=== PATIENT | female | born 1955 | race Two or more races ===

== ENCOUNTER 2017-02-19 20:50 | Inpatient (IN) | payer MEDICARE, OTHER ==
[~2017-02-19] VITALS: Ht 157.5 cm; Wt 58.1 kg
--- NOTE | 2017-02-19 23:00 | NUR ---
ADMISSION NOTES: ADMITTED A 61 Y/O FEMALE FROM [facility]. PT ON 5150 HOLD FOR GD. PER HOLD, PATIENT PRESENTED WITH PARANOID IDEATION (FEARS STAFF AND BELIEVES FOOD HAS BEEN POISONED). SOMATIC DELUSIONS, AND LIMITED INSIGHT DESPITE ATTEMPTS AT REALITY TESTING. DOES NOT BELIEVE PATIENT WOULD BE SAFE AT HOME AND BELIEVES PSYCHIATRIC ADMISSION IS WARRANTED, THE PATIENT IS DEMONSTRATING THAT SHE IS UNABLE TO CARE FOR HERSELF DESPITE HAVING FOOD, CLOTHING, AND MCC AND HAS DECLINED PHYSICALLY IN RECENT MONTHS. PATIENT ADMITTING DX. PSYCHOSIS AND MEDICAL DX. OF RECURRENT UTI, NEUROGENIC BLADDER, THROMBOCYTOPENIA, LEUKOPENIA, S/P CHOLECYSTECTOMY. UPON FACE TO FACE EVALUATION, PATIENT IS A&OX2, ANXIOUS, CRYING, SCREAMING, UNCOOPERATIVE WITH STAFF. V/S WNL. PATIENT HAS NO SOB, RESPIRATION EVEN AND UNLABORED, NO ACUTE DISTRESS NOTED, DENIES PAIN AND DISCOMFORT AT THIS TIME. AMBULATORY WITH UNSTEADY GAIT. PATIENT IS UNDER THE CARE OF DR. LYNCH FOR PSYCH AND DR. VENTURA FOR MEDICAL. NOTIFIED DR. LYNCH WITH ORDERS GIVEN NOTED AND CARRIED OUT. REFUSED SKIN ASSESSMENT. BELONGINGS INSPECTED AND PLACED TO SAFE LOCKED CABINET. ALL NEEDS ATTENDED AND MET. WILL CONTINUE TO MONITOR [id number] FOR SAFETY AND BEHAVIOR. Addendum: 02/20/17 at 0657 by MYCHAL GARCÍA RN PT REFUSED MRSA. WILL ENDORSE TO NEXT SHIFT NURSE FOR ADA.
[2017-02-19] MEDS ORDERED: ACETAMINOPHEN 325 MG TABLET PO PRN (23:30)
[2017-02-19] MEDS ORDERED: MAGNESIUM HYDROXIDE 30 ML UDC PO PRN (23:30)
[2017-02-19] MEDS ORDERED: MAG HYDROX/AL HYDROX/SIMETH 30 ML UDC PO PRN (23:30)
[2017-02-19] MEDS ORDERED: LORAZEPAM INJ 2 MG/ML VIAL ONE (23:41)
--- NOTE | 2017-02-19 23:45 | NUR ---
PT IS CRYING, SCREAMING, UNCOOPERATIVE WITH STAFF, PT WANTS TO LEAVE. AT BEDSIDE. OFFERED ATIVAN PO BUT PT REFUSED. REQUESTING FOR ATIVAN IM LIKEWISE PT IS OK WITH THE ATIVAN IM. CALLED DR. LYNCH. INFORMED PT'S CONDITION UPON ADMISSION. ORDERED ATIVAN 1MG IM. NOTED AND CARRIED OUT. WILL CONTINUE TO MONITOR FOR SAFETY AND BEHAVIOR.
[2017-02-20] MEDS ORDERED: LORAZEPAM INJ 2 MG/ML VIAL IM ONE
[2017-02-20] MEDS ORDERED: ZOLPIDEM TARTRATE 5 MG TABLET ONE (00:20)
[2017-02-20] MEDS: ZOLPIDEM TARTRATE 5 MG TABLET PO PRN ×2 (00:21→22:02)
[2017-02-20] MEDS ORDERED: HEPA SUBCUT (01:22)
[2017-02-20] MEDS ORDERED: SENN8.6T19 PO (01:22)
[2017-02-20] MEDS ORDERED: OLAN5TAB3 PO (01:22)
[2017-02-20] MEDS ORDERED: SENN25TA8 PO (01:22)
[2017-02-20] MEDS ORDERED: BETH50TA PO (01:22)
[2017-02-20] MEDS ORDERED: DOCU-170 PO (01:22)
[2017-02-20] MEDS ORDERED: THIA100V2 IV (01:29)
[2017-02-20 02:11] VITALS: BP 103/64
[2017-02-20 06:26] LABS: BASOPHILS # (AUTO) 0.1 /CMM (0.0-0.2); BASOPHILS % (AUTO) 1.2 % (0.0-2.0); EOSINOPHILS # (AUTO) 0.1 /CMM (0.0-0.7); EOSINOPHILS % (AUTO) 1.8 % (0.0-6.0); HEMATOCRIT 41 % (33-45); HEMOGLOBIN 13.6 g/dL (11.5-14.8); LYMPHOCYTES # (AUTO) 2.1 /CMM (0.8-4.8); MEAN CORPUSCULAR HEMOGLOBIN 31 PG (26.0-33.0); MEAN CORPUSCULAR HGB CONC 33 g/dl (31.0-36.0); MEAN CORPUSCULAR VOLUME 94 fL (82-100); MONOCYTES # (AUTO) 0.4 /CMM (0.1-1.30); MONOCYTES % (AUTO) 8.2 % (2.0-12.0); NEUTROPHILS # (AUTO) 2.1 /CMM (1.8-8.9); NEUTROPHILS % (AUTO) 43.8 % (43.0-81.0); RDW COEFFICIENT OF VARIATION 15.7 (11.5-15.0); RED BLOOD CELL COUNT(AUTO) 4.32 MIL/uL (4.0-5.2); WHITE BLOOD COUNT (AUTO) 4.7 K/uL (4.3-11.0)
[2017-02-20 06:48] LABS: CHOLESTEROL 219 mg/dL (<200); HDL CHOLESTEROL 61 mg/dL (40-60); LDL 134 mg/dL (0-99); TRIGLYCERIDES 90 mg/dL (30-150)
[2017-02-20 07:42] LABS: BAND % (MANUAL) 1 % (0.0-5.0); EOSINOPHILS % (MANUAL) 1 % (0-4); LYMPHOCYTES % (MANUAL) 54 % (16-48); MONOCYTES % (MANUAL) 8 % (0-11.0); NEUTROPHILS % (MANUAL) 36 (42-76)
[2017-02-20 08:00] VITALS: BP 120/62
[2017-02-20 08:42] LABS: PLATELET COUNT (AUTO) 76 /CMM (150-450)
[2017-02-20 08:46] LABS: ALBUMIN 3.4 g/dL (3.4-5.0); BILIRUBIN,TOTAL 1.3 mg/dL (0.2-1.0); CREATININE 0.6 mg/dL (0.6-1.3); MAGNESIUM 1.6 mg/dL (1.8-2.4)
[2017-02-20] MEDS ORDERED: BETHANECHOL CHLORIDE 50 MG TABLET PO SCH (09:00)
[2017-02-20] MEDS: DOCUSATE SODIUM 100 MG CAPSULE PO SCH ×3 (09:00→17:00)
[2017-02-20] MEDS: BETHANECHOL CHLORIDE (25 MG) 25 MG TABLET PO SCH ×4 (09:00→17:00)
[2017-02-20 10:02] LABS: THYROID STIMULATING HORMONE 6.859 uIU/mL (0.358-3.74)
--- NOTE | 2017-02-20 12:39 | NUR ---
Pt. refused for MRSA swab and refused for skin assessment. Explained on the importance and pt. still refusing.
[2017-02-20 15:56] VITALS: BP 124/78
--- NOTE | 2017-02-20 16:40 | NUR ---
Initial discharge plan: Patient resides at home with her at [address] [place] [address]; [phone]. SW spoke with her (Williams Prater- [phone]) and he stated that she will be able to return home and that the psychiatrist had called him to discuss discharge planning. He stated he recommended home with outpatient treatment. SW will follow up. SW will form a safe and proper discharge.
[2017-02-20] MEDS: OLANZAPINE 5 MG/TAB.RAPDIS PO SCH (17:00)
--- NOTE | 2017-02-20 17:10 | NUR ---
Pt. refused to take the due meds, explained on the importance and the risk of not taking and pt. still refusing. Pt. is suspicious and paranoid.
[2017-02-20 20:00] VITALS: BP 123/80
[2017-02-20] MEDS ORDERED: OLANZAPINE 5 MG TABLET PO SCH (22:00)
[2017-02-20] MEDS: SENNOSIDES 8.6 MG TABLET PO SCH (22:01)
[2017-02-20] MEDS: MIRTAZAPINE 15 MG TABLET PO SCH (22:01)
[2017-02-21 08:00] VITALS: BP 126/62
[2017-02-21] MEDS: OLANZAPINE 5 MG/TAB.RAPDIS PO SCH ×2 (09:03→16:52)
[2017-02-21] MEDS: DOCUSATE SODIUM 100 MG CAPSULE PO SCH ×2 (09:03→16:52)
[2017-02-21] MEDS: BETHANECHOL CHLORIDE (25 MG) 25 MG TABLET PO SCH ×2 (09:04→16:52)
[2017-02-21 16:00] VITALS: BP 119/73
[2017-02-21 20:00] VITALS: BP 143/86
[2017-02-21] MEDS: MIRTAZAPINE 15 MG TABLET PO SCH (21:47)
[2017-02-21] MEDS: ZOLPIDEM TARTRATE 5 MG TABLET PO PRN (21:47)
[2017-02-21] MEDS: SENNOSIDES 8.6 MG TABLET PO SCH (21:47)
[2017-02-22 07:48] VITALS: BP 134/81
[2017-02-22] MEDS: OLANZAPINE 5 MG/TAB.RAPDIS PO SCH ×3 (08:31→16:38)
[2017-02-22] MEDS: DOCUSATE SODIUM 100 MG CAPSULE PO SCH ×2 (08:31→16:38)
[2017-02-22] MEDS: BETHANECHOL CHLORIDE (25 MG) 25 MG TABLET PO SCH ×2 (08:32→16:39)
--- NOTE | 2017-02-22 11:17 | NUR ---
SALES EXECUTIVE INSURANCE-NOTES DR. BARBOSA SEEN THE PATIENT WITH VERBAL ORDER OF CBC,BMP AND MAGNESIUM LEVEL IN AM. NOTED AND CARRIED OUT.
[2017-02-22 15:45] VITALS: BP 140/79
--- NOTE | 2017-02-22 16:21 | NUR ---
PRESS PULLER-NOTES SEEN BY KEILA MCGILL WITH VERBAL ORDER OF BOOST SUPPLEMENT 4XDAILY .NOTED AND CARRIED OUT.
[2017-02-22] MEDS ORDERED: BOOST PLUS FOOD-VANILLA 237 ML BOX PO SCH (17:00)
[2017-02-22 20:04] VITALS: BP 122/68
[2017-02-22] MEDS: BOOST GLUCOSE CONTROL VANILLA 237 ML BOX PO SCH (21:27)
[2017-02-22] MEDS: MIRTAZAPINE 15 MG TABLET PO SCH (21:27)
[2017-02-22] MEDS: SENNOSIDES 8.6 MG TABLET PO SCH (21:27)
[2017-02-22] MEDS: ZOLPIDEM TARTRATE 5 MG TABLET PO PRN (21:28)
[2017-02-23 07:41] LABS: CALCIUM, SERUM 8.7 mg/dL (8.5-10.1); CREATININE 0.5 mg/dL (0.6-1.3); MAGNESIUM 1.7 mg/dL (1.8-2.4); POTASSIUM 3.3 mmol/L (3.5-5.1)
[2017-02-23 07:43] LABS: BASOPHILS % (AUTO) 0.6 % (0.0-2.0); EOSINOPHILS # (AUTO) 0.1 /CMM (0.0-0.7); EOSINOPHILS % (AUTO) 1.3 % (0.0-6.0); HEMATOCRIT 36 % (33-45); HEMOGLOBIN 12.1 g/dL (11.5-14.8); LYMPHOCYTES % (AUTO) 46.9 % (20.0-44.0); MEAN CORPUSCULAR HEMOGLOBIN 31 PG (26.0-33.0); MEAN CORPUSCULAR HGB CONC 34 g/dl (31.0-36.0); MEAN CORPUSCULAR VOLUME 94 fL (82-100); MONOCYTES # (AUTO) 0.5 /CMM (0.1-1.30); MONOCYTES % (AUTO) 10.5 % (2.0-12.0); NEUTROPHILS # (AUTO) 1.8 /CMM (1.8-8.9); NEUTROPHILS % (AUTO) 40.7 % (43.0-81.0); PLATELET COUNT (AUTO) 89 /CMM (150-450); RDW COEFFICIENT OF VARIATION 15.1 (11.5-15.0); RED BLOOD CELL COUNT(AUTO) 3.84 MIL/uL (4.0-5.2); WHITE BLOOD COUNT (AUTO) 4.4 K/uL (4.3-11.0)
--- NOTE | 2017-02-23 07:54 | NUR ---
RN GPS NOTE PT AWAKE, SITTING IN HER BED, VERBALLY RESPONSIVE, DENIES PAIN, NOT IN DISTRESS, REORIENTED NECESSARY.
[2017-02-23 08:00] VITALS: BP 123/76
[2017-02-23 08:37] LABS: EOSINOPHILS % (MANUAL) 2 % (0-4); LYMPHOCYTES % (MANUAL) 47 % (16-48); MONOCYTES % (MANUAL) 10 % (0-11.0); NEUTROPHILS % (MANUAL) 41 (42-76)
[2017-02-23] MEDS: DOCUSATE SODIUM 100 MG CAPSULE PO SCH ×2 (08:42→17:00)
[2017-02-23] MEDS: OLANZAPINE 5 MG/TAB.RAPDIS PO SCH ×2 (08:42→22:01)
[2017-02-23] MEDS: BETHANECHOL CHLORIDE (25 MG) 25 MG TABLET PO SCH ×2 (08:43→17:00)
[2017-02-23] MEDS: BOOST GLUCOSE CONTROL VANILLA 237 ML BOX PO SCH ×4 (08:43→21:00)
--- NOTE | 2017-02-23 08:55 | NUR ---
RN GPS NOTES PT SEEN AND EXAMINED BY DR. VILLALBA, TOLERATED WELL, ABLE TO FOLLOW INSTRUCTIONS, TOOK ALL HER AM MEDS.
[2017-02-23] MEDS: MAGNESIUM OXIDE 400 MG TABLET PO ONE ×2 (10:00→10:23)
[2017-02-23] MEDS: POTASSIUM CHLORIDE 20 MEQ TAB.PRT.SR PO ONE ×2 (10:00→10:22)
[2017-02-23 19:35] VITALS: BP 127/59
[2017-02-23] MEDS: SENNOSIDES 8.6 MG TABLET PO SCH (22:00)
[2017-02-23] MEDS: MIRTAZAPINE 15 MG TABLET PO SCH (22:01)
[2017-02-23] MEDS: ZOLPIDEM TARTRATE 5 MG TABLET PO PRN (22:01)
[2017-02-24 08:00] VITALS: BP 140/84
[2017-02-24] MEDS: BOOST GLUCOSE CONTROL VANILLA 237 ML BOX PO SCH ×4 (08:16→20:17)
[2017-02-24] MEDS: OLANZAPINE 5 MG/TAB.RAPDIS PO SCH ×2 (09:08→20:09)
[2017-02-24] MEDS: BETHANECHOL CHLORIDE (25 MG) 25 MG TABLET PO SCH ×2 (09:08→17:10)
[2017-02-24] MEDS: DOCUSATE SODIUM 100 MG CAPSULE PO SCH ×2 (09:08→17:10)
--- NOTE | 2017-02-24 11:00 | NUR ---
BEAD FORMING MACHINE SET UP OPERATOR-NOTES DR. VERA SEEN THE PATIENT AND MADE AWARE OF PATIENT POTASSIUM LEVEL. AND NOT EATING WELL . STATED" WILL CONT. MONITORING".
[2017-02-24 16:07] VITALS: BP 118/79
--- NOTE | 2017-02-24 16:28 | NUR ---
MANAGEMENT TECHNICIAN NOTES PER ONE OF THE ENVIRONMENT ARTIST STAFF AT AROUND 1615 PATIENT ROOM MATE PUSH THE PATIENT ON THE FLOOR NEXT TO ROOM 214 DOOR AND FELL ON HER BOTTOM. UPON INVESTIGATION PATIENT SITTING ON THE FLOOR ABLE TO STAND AND AMBULATE WITH TWO STAFF ASSIST WITHOUT COMPLAINED OF ANY DISCOMFORT. NO INJURY NOTED. DR. VERA MADE AWARE OF PATIENT INCIDENT WITH ORDER OF STAT LUMBAR SACRAL X-RAY.NOTED AND CARRIED OUT. OFFERED TYLENOL TO THE PATIENT BUT REFUSED. PATIENT WAS TRANSFER TO RM 220-2. JARETT BOWSER MADE AWARE. DR. LYNCH MADE AWARE OF THE INCIDENT.
--- NOTE | 2017-02-24 18:31 | NUR ---
JAE-NOTES PATIENT AWAKE,ALERT,GUARDED SITTING IN THE CHAIR IN THE DAY ROOM ,CALM,NO ACUTE DISTRESS. ALL NEEDS ATTENDED AND ANTICIPATED. WILL ENDORSE TO INCOMING NURSE FOR CONTINUITY OF CARE. Addendum: 02/24/17 at 1845 by VESNA TRACY LVN IN ADDITION TO MY ABOVE NOTES. PATIENT REFUSED TO EAT. DRINK ONLY 1/2 EACH OF HER BOOST.EXPLAINED RISK AND BENEFITS OF EATING , ENCOURAGE AND ASSIST PATIENT DURING MEAL BUT PATIENT STILL REFUSED.
[2017-02-24 20:36] VITALS: BP 131/77
[2017-02-24] MEDS: SENNOSIDES 8.6 MG TABLET PO SCH (21:43)
[2017-02-24] MEDS ORDERED: MIRTAZAPINE 15 MG TABLET PO SCH (22:00)
[2017-02-25] MEDS: ZOLPIDEM TARTRATE 5 MG TABLET PO PRN (01:49)
--- NOTE | 2017-02-25 01:50 | NUR ---
GPS/RN NOTE:
--- NOTE | 2017-02-25 01:50 | NUR ---
GPS/RN NOTE: PATIENT NOT SLEEPING, WAS SEEN SITTING AT THE EDGE OF THE BED, AMBIEN 5 MG TAB 1 PO GIVEN.
[2017-02-25 07:19] LABS: CALCIUM, SERUM 8.6 mg/dL (8.5-10.1); CREATININE 0.8 mg/dL (0.6-1.3); POTASSIUM 3.4 mmol/L (3.5-5.1)
[2017-02-25 08:00] VITALS: BP 127/68
[2017-02-25] MEDS: OLANZAPINE 5 MG/TAB.RAPDIS PO SCH (08:49)
[2017-02-25] MEDS: DOCUSATE SODIUM 100 MG CAPSULE PO SCH ×2 (08:49→16:44)
[2017-02-25] MEDS: BOOST GLUCOSE CONTROL VANILLA 237 ML BOX PO SCH ×4 (08:53→22:14)
[2017-02-25] MEDS: BETHANECHOL CHLORIDE (25 MG) 25 MG TABLET PO SCH ×2 (09:59→16:44)
[2017-02-25] MEDS ORDERED: POTASSIUM CHLORIDE 20 MEQ TAB.PRT.SR PO SCH (10:00)
[2017-02-25] MEDS: POTASSIUM CHLORIDE 20 MEQ TAB.PRT.SR PO ONE ×2 (11:23→11:44)
--- NOTE | 2017-02-25 11:47 | NUR ---
RN -NOTES SEEN THE PATIENT AND MADE AWARE OF PATIENT POTASSIUM LEVEL. AND PT NOT EATING . NEW ORDER K-DUR 40 MEQ ORDER PLACED AND CARED OUT, PT REFUSED POTASSIUM ENCOURAGE AND EXPLAIN PT CONTINUE TO REFUSED
--- NOTE | 2017-02-25 14:06 | NUR ---
BETO met with the patient who was calm and cooperative. Spoke with her regarding her discharge plan and pt. still wants to return home upon discharge.
[2017-02-25 16:27] VITALS: BP 131/80
[2017-02-25 20:33] VITALS: BP 152/80
[2017-02-25] MEDS ORDERED: OLANZAPINE 5 MG/TAB.RAPDIS PO SCH (22:00)
[2017-02-25] MEDS: SENNOSIDES 8.6 MG TABLET PO SCH (22:14)
--- NOTE | 2017-02-26 01:00 | NUR ---
GPS/HOME HEALTH CARE SOCIAL WORKER; NOTED PT IN BED AWAKE SITTING POSITION CALM AND QUIET. I ASKED IF SHE NEEDS SOMETHING WON'T SAY NOTHING SHE JUST LOOK AT ME. IF OFFERED FOR SLEEPING MED AND SOMETHING TO EAT SHE REFUSED. PT ENCOURAGED TO SLEEP. WILL CONTINUE TO MONITOR. Addendum: 02/26/17 at 0153 by SUJATHA GLASS LVN WRONG WORD NOT IF OFFERED FOR SLEEPING MED AND SOMETHING TO EAT BUT THE RIGHT WORD IS I OFFERED.
[2017-02-26 08:00] VITALS: BP 113/70
[2017-02-26] MEDS: VENLAFAXINE XR 75 MG CAP.SR.24H PO SCH (09:00)
[2017-02-26] MEDS: DOCUSATE SODIUM 100 MG CAPSULE PO SCH ×2 (09:00→16:28)
[2017-02-26] MEDS: BETHANECHOL CHLORIDE (25 MG) 25 MG TABLET PO SCH ×2 (09:00→16:29)
[2017-02-26] MEDS ORDERED: OLANZAPINE 5 MG/TAB.RAPDIS PO SCH (09:00)
[2017-02-26] MEDS: BOOST GLUCOSE CONTROL VANILLA 237 ML BOX PO SCH ×4 (09:16→21:18)
--- NOTE | 2017-02-26 09:58 | NUR ---
GPS RN NOTE: PATIENT IN THE ROOM FLAT EFFECT ,VSS STABLE NOTED PATIENT NEEDS A LOT AT ENCOURAGEMENT WITH MEDICATIONS, REFUSED MORNING MEDICATIONS TOOK ONLY ZYPREXA 5 MG PO,PATIENT PARANOID NOT EATING DRINK BOOST ,BOTH MD AWARE NO NEW ORDERS AT THIS TIME WILL CONTINUE MONITORING AND ENCOURAGE PT TO EAT, DRINK AND TAKE MEDICATIONS.
[2017-02-26 15:53] VITALS: BP 124/76
[2017-02-26] MEDS: QUETIAPINE FUMARATE 25 MG TABLET PO SCH (16:23)
[2017-02-26 20:00] VITALS: BP 129/86
[2017-02-26 20:03] VITALS: BP 129/86
[2017-02-26] MEDS: QUETIAPINE FUMARATE 100 MG TABLET PO SCH (21:17)
[2017-02-26] MEDS: SENNOSIDES 8.6 MG TABLET PO SCH (21:17)
[2017-02-27 08:00] VITALS: BP 135/77
[2017-02-27] MEDS: QUETIAPINE FUMARATE 25 MG TABLET PO SCH ×2 (09:00→17:00)
[2017-02-27] MEDS: VENLAFAXINE XR 75 MG CAP.SR.24H PO SCH (09:00)
[2017-02-27] MEDS: DOCUSATE SODIUM 100 MG CAPSULE PO SCH ×2 (09:00→17:00)
[2017-02-27] MEDS: BETHANECHOL CHLORIDE (25 MG) 25 MG TABLET PO SCH ×2 (09:00→17:00)
[2017-02-27] MEDS: BOOST GLUCOSE CONTROL VANILLA 237 ML BOX PO SCH ×4 (09:00→21:00)
--- NOTE | 2017-02-27 11:19 | NUR ---
GPS/RN PT REFUSED TO TAKE ALL MEDS AND BOOST WELL. MULTIPLE ATTEMPTS WERE MADE WITH HELP OF MARGARITA GONCALVES, CHARGE NURSE GÉNESIS LAZO. DR SALAZAR SEEN THE PT AND AWARE OF PT'S REFUSAL.
--- NOTE | 2017-02-27 12:52 | NUR ---
GPS/RN MEDS OFFERED X3. PT STILL REFUSING. DR LYNCH SEEN THE PT AND AWARE. NEW ORDERS: KEEP OFFERING PT THE MEDICATIONS.
--- NOTE | 2017-02-27 13:04 | NUR ---
BETO spoke with pt's , Williams Prater- [phone] who called requesting for pt. to be transferred somewhere closer to his house that is an eating disorder facility. BETO discussed with the psychiatrist, and the patient is not ready for discharge now and can't be transferred to a lower level of care. understands and appreciated the information.
[2017-02-27 16:00] VITALS: BP 149/59
--- NOTE | 2017-02-27 18:21 | NUR ---
GPS/RN PT REFUSED ZOILA AND ALL THE MEDS SCHEDULED FOR 1700. OFFERED X3.
--- NOTE | 2017-02-27 18:50 | NUR ---
GPS/RN SEROQUEL AND VENLAFAXINE WERE PULLED BY PT'S REQUEST HE TRIED TO CONVINCE THE PT TO TAKE MEDS. PT REFUSED AGAIN AND MEDS WERE WASTED.
--- NOTE | 2017-02-27 19:34 | NUR ---
GPS/RN NOTE: PATIENT'S VISITING, PATIENT IS AMBULATORY, SHOWS NO S/S OF ANY DISCOMFORT. NO APPARENT DISTRESS NOTED. PATIENT IS NON-COMPLIANT WITH MEDS, NOT EATING.
[2017-02-27] MEDS: QUETIAPINE FUMARATE 100 MG TABLET PO SCH (19:43)
[2017-02-27] MEDS: SENNOSIDES 8.6 MG TABLET PO SCH (19:44)
[2017-02-27] MEDS: LORAZEPAM 0.5 MG TABLET PO PRN (19:47)
--- NOTE | 2017-02-27 19:47 | NUR ---
GPS/RN NOTE: REQUESTED FOR HIS 'S MEDICATIONS DUE FOR 2199, BECAUSE SHE REFUSED MEDS MOST OF THE TIME. SENOKOT 8.6 MG TAB PO, SEROQUEL 100 MG TAB. GIVEN. ATIVAN 1 MG TAB PO GIVEN FOR ANXIETY.
[2017-02-27 20:00] VITALS: BP 118/76
[2017-02-28 08:00] VITALS: BP 131/72
[2017-02-28] MEDS: VENLAFAXINE XR 75 MG CAP.SR.24H PO SCH (09:00)
[2017-02-28] MEDS: DOCUSATE SODIUM 100 MG CAPSULE PO SCH ×2 (09:00→17:00)
[2017-02-28] MEDS: BETHANECHOL CHLORIDE (25 MG) 25 MG TABLET PO SCH ×2 (09:00→17:00)
[2017-02-28] MEDS: BOOST GLUCOSE CONTROL VANILLA 237 ML BOX PO SCH ×4 (09:00→20:13)
[2017-02-28] MEDS: QUETIAPINE FUMARATE 25 MG TABLET PO SCH ×2 (09:00→17:00)
[2017-02-28] MEDS ORDERED: POTASSIUM CHLORIDE 20 MEQ TAB.PRT.SR PO ONE ×3 (10:00→20:00)
[2017-02-28] MEDS ORDERED: POTASSIUM CHLORIDE 20 MEQ POWDER PACKET PO ONE (11:30)
[2017-02-28 16:00] VITALS: BP 140/80
--- NOTE | 2017-02-28 16:09 | NUR ---
GPS/RN PT REFUSED MEDICATIONS, TO DRINK AND TO EAT AT THIS TIME.
--- NOTE | 2017-02-28 17:29 | NUR ---
GPS/RN PT REFUSED MEDS. OFFERED X3
--- NOTE | 2017-02-28 19:07 | NUR ---
GPS/RN ENDORSED TO HAYDEE LAZO TO ADMINISTER POTASSIUM 40 MEQ PO ALONG WITH PM MEDS WITH HELP OF IF HE COMES.
--- NOTE | 2017-02-28 19:24 | NUR ---
GPS/RN NOTE: PATIENT WITH HER AT THE DINING TABLE. BOOST DRINK GIVEN PER REQUEST OF THE . PATIENT NOT COOPERATING, REFUSED TO DRINK HER BOOST. VERY NON-COMPLIANT WITH HER CARE AND TREATMENT.
[2017-02-28 20:00] VITALS: BP 153/72
[2017-02-28] MEDS: SENNOSIDES 8.6 MG TABLET PO SCH (20:13)
[2017-02-28] MEDS: QUETIAPINE FUMARATE 100 MG TABLET PO SCH (20:14)
--- NOTE | 2017-02-28 20:14 | NUR ---
GPS/RN NOTE: NIGHT MEDICATIONS REQUESTED BY HER : SENOKOT 8.6 MG, SEROQUEL 100 MG - TAKEN BOOST 237 ML PO GIVEN - DRANK ALL OF IT POTASSIUM 40 MEQ PO X1 DUE 1999 - TAKEN PATIENT COOPERATIVE, TOOK ALL HER MEDS. AT THE DINING AREA WITH HER. VITALS 153/72, HR 100
[2017-02-28] MEDS: LORAZEPAM 0.5 MG TABLET PO PRN (20:23)
--- NOTE | 2017-02-28 20:24 | NUR ---
GPS/RN NOTE: PATIENT FEELS ANXIOUS, LORAZEPAM 1 MG PO GIVEN. PATIENT TOOK THE MEDICATION.
[2017-03-01 08:00] VITALS: BP 127/86
[2017-03-01] MEDS: VENLAFAXINE XR 75 MG CAP.SR.24H PO SCH (08:26)
[2017-03-01] MEDS: BETHANECHOL CHLORIDE (25 MG) 25 MG TABLET PO SCH ×2 (08:27→16:44)
[2017-03-01] MEDS: QUETIAPINE FUMARATE 25 MG TABLET PO SCH ×2 (08:27→16:45)
[2017-03-01] MEDS: DOCUSATE SODIUM 100 MG CAPSULE PO SCH ×3 (08:27→17:00)
[2017-03-01] MEDS: BOOST GLUCOSE CONTROL VANILLA 237 ML BOX PO SCH ×4 (08:29→19:52)
[2017-03-01 10:00] VITALS: BP 127/86
[2017-03-01 16:21] VITALS: BP 117/63
--- NOTE | 2017-03-01 19:33 | NUR ---
GPS/RN NOTE: PATIENT'S AND FEMALE COUSIN VISIT. ASSISTED PATIENT EAT FOOD BROUGHT IN. ENCOURAGED HER TO EAT. PATIENT ALWAYS REFUSING TO EAT AND DRINK. REQUESTED TO GIVE HIS 'S ROUTINE NIGHT MEDS SENOKOT 8.6 MG TAB, SEROQUEL 100 MG TAB. ATIVAN 1 MG PO FOR ANXIETY. PATIENT IS FEELING ANXIOUS.
[2017-03-01] MEDS: SENNOSIDES 8.6 MG TABLET PO SCH (19:52)
[2017-03-01] MEDS: QUETIAPINE FUMARATE 100 MG TABLET PO SCH (19:52)
[2017-03-01] MEDS: LORAZEPAM 0.5 MG TABLET PO PRN (19:53)
--- NOTE | 2017-03-01 19:54 | NUR ---
GPS/RN NOTE: ATIVAN 1 MG PO GIVEN FOR FEELING ANXIOUS.
[2017-03-01 20:45] VITALS: BP 135/92
[2017-03-02 08:00] VITALS: BP 111/72
[2017-03-02] MEDS: DOCUSATE SODIUM 100 MG CAPSULE PO SCH ×3 (09:00→17:00)
[2017-03-02] MEDS: QUETIAPINE FUMARATE 25 MG TABLET PO SCH ×3 (09:00→17:00)
[2017-03-02] MEDS: BOOST GLUCOSE CONTROL VANILLA 237 ML BOX PO SCH ×6 (09:00→21:00)
[2017-03-02] MEDS: BETHANECHOL CHLORIDE (25 MG) 25 MG TABLET PO SCH ×3 (09:00→17:00)
[2017-03-02] MEDS: VENLAFAXINE XR 75 MG CAP.SR.24H PO SCH (09:48)
--- NOTE | 2017-03-02 10:25 | NUR ---
BEAUTY OPERATOR APPRENTICE-NOTES PATIENT REFUSED ALL 0900 AM MEDICATIONS INCLUDING BOOST SUPPLEMENT. ENCOURAGE AND EXPLAINED RISK AND BENEFITS BUT PATIENT STILL REFUSED. OFFERED X3 . DR. LYNCH IN THE UNIT AT THIS TIME AND MADE AWARE.
--- NOTE | 2017-03-02 12:35 | NUR ---
DYE WEIGHER-NOTES PATIENT REFUSED BOOST SUPPLEMENT DESPITE ENCOURAGEMENT. OFFERED X3 STILL REFUSED.
[2017-03-02 16:00] VITALS: BP 121/62
--- NOTE | 2017-03-02 17:15 | NUR ---
INTERNAL MEDICINE VETERINARY TECHNICIAN-NOTES PATIENT REFUSED ALL 1700 PM MEDICATIONS INCLUDING BOOST SUPPLEMENT. ENCOURAGE AND EXPLAINED RISK AND BENEFITS BUT PATIENT STILL REFUSED. OFFERED X3 .
--- NOTE | 2017-03-02 19:19 | NUR ---
PROCESS STEWARD-NOTES PATIENT REFUSED TO EAT HER MEAL THIS SHIFT DESPITE ENCOURAGEMENT ONLY DRINKS WATER. PATIENT IN HER ROOM SITTING IN HER BED,NO ACUTE DISTRESS NOTED. ALL NEEDS ATTENDED AND ANTICIPATED. WILL ENDORSE TO RESTAURANT HOSPITALITY MANAGER FOR CONTINUITY OF CARE.
--- NOTE | 2017-03-02 19:30 | NUR ---
GPS RN NOTE, RECEIVED PATIENT AWAKE AND IN BED, NO S/S OR COMPLAINTS OF PAIN AT THIS TIME. PATIENT IS DISPLAYING NO S/S OF APPARENT DISTRESS AT THIS TIME. PATIENT BREATHING IS UNLABORED WITH EQUAL RISE AND FALL OF THE CHEST. PATIENT HAS A FAMILY MEMBER AT THE BEDSIDE TYING TO ENCOURAGE THE PATIENT TO EAT. PATIENT IS ALERT AND ORIENTED X 2 ON ROOM AIR WITH A SPO2 98%. PATIENT NON COMPLAINT WITH MEDICATION, ANXIOUS, UNCOOPERATIVE AT TIMES, GUARDED, SUSPICIOUS, AND NEEDS REORIENTATION. PATIENT DENIES SUICIDE AND HOMICIDAL IDEATIONS AT THIS TIME. PATIENT ASSISTED WITH TURNING AND REPOSITIONING Q2HR AND PRN FOR COMFORT AND CIRCULATION. PATIENT HAS NO NEEDS AT THIS TIME. PATIENT EDUCATED ON THE USE OF THE CALL AMARO. PATIENT BED SIDE RAILS UP X2 FOR SAFETY, BED IS LOCKED AND LOW WILL CONTINUE TO MONITOR AND MAINTAIN SAFETY.
[2017-03-02 21:04] VITALS: BP 121/81
[2017-03-02] MEDS: QUETIAPINE FUMARATE 100 MG TABLET PO SCH (21:59)
[2017-03-02] MEDS: SENNOSIDES 8.6 MG TABLET PO SCH (21:59)
--- NOTE | 2017-03-02 21:59 | NUR ---
GPS RN NOTE, PATIENT REFUSED TO TAKE BOOST GLUCOSE CONTROL 237ML PO QID, SENOKOT 8.6MG PO HS, AND SEROQUEL 150MG PO HS. OFFERED BOOST, SENOKOT, AND SEROQUEL THREE TIMES BUT STILL PATIENT REFUSED STATING, " NO I DON'T WANT ANYTHING ". WHEN ASKED WHY SHE WON'T EAT, DRINK, OR TAKE MEDICATION NO RESPONSE IS GIVEN. EDUCATED THE PATIENT ON THE RISK AND BENEFITS OF TAKING AND REFUSING AFOREMENTIONED MEDICATIONS. WILL CONTINUE TO MONITOR THIS PATIENT.
[2017-03-03 07:15] LABS: BASOPHILS % (AUTO) 0.6 % (0.0-2.0); EOSINOPHILS % (AUTO) 1.8 % (0.0-6.0); HEMATOCRIT 40 % (33-45); HEMOGLOBIN 13.1 g/dL (11.5-14.8); MEAN CORPUSCULAR HEMOGLOBIN 31 PG (26.0-33.0); MEAN CORPUSCULAR HGB CONC 33 g/dl (31.0-36.0); MEAN CORPUSCULAR VOLUME 95 fL (82-100); MONOCYTES % (AUTO) 6.7 % (2.0-12.0); NEUTROPHILS % (AUTO) 46.9 % (43.0-81.0); PLATELET COUNT (AUTO) 102 /CMM (150-450); RDW COEFFICIENT OF VARIATION 15.9 (11.5-15.0); RED BLOOD CELL COUNT(AUTO) 4.26 MIL/uL (4.0-5.2); WHITE BLOOD COUNT (AUTO) 4.1 K/uL (4.3-11.0)
[2017-03-03 07:34] LABS: CREATININE 0.6 mg/dL (0.6-1.3); MAGNESIUM 1.8 mg/dL (1.8-2.4); POTASSIUM 3.9 mmol/L (3.5-5.1)
[2017-03-03 08:00] VITALS: BP 115/85
[2017-03-03 08:07] LABS: EOSINOPHILS % (MANUAL) 2 % (0-4); LYMPHOCYTES % (MANUAL) 43 % (16-48); MONOCYTES % (MANUAL) 3 % (0-11.0); NEUTROPHILS % (MANUAL) 52 (42-76)
[2017-03-03] MEDS: VENLAFAXINE XR 75 MG CAP.SR.24H PO SCH ×2 (08:48→09:00)
[2017-03-03] MEDS: DOCUSATE SODIUM 100 MG CAPSULE PO SCH ×3 (08:48→17:00)
[2017-03-03] MEDS: QUETIAPINE FUMARATE 25 MG TABLET PO SCH ×3 (08:50→17:00)
[2017-03-03] MEDS: BOOST GLUCOSE CONTROL VANILLA 237 ML BOX PO SCH ×4 (08:51→21:00)
[2017-03-03] MEDS: BETHANECHOL CHLORIDE (25 MG) 25 MG TABLET PO SCH ×3 (08:55→17:00)
--- NOTE | 2017-03-03 12:15 | NUR ---
SW spoke with the psychiatrist and pt. is still not ready for discharge.
[2017-03-03 16:00] VITALS: BP 129/55
[2017-03-03 20:30] VITALS: BP 133/75
[2017-03-03] MEDS: SENNOSIDES 8.6 MG TABLET PO SCH (21:29)
[2017-03-03] MEDS: QUETIAPINE FUMARATE 100 MG TABLET PO SCH (21:29)
--- NOTE | 2017-03-03 21:30 | NUR ---
RN GPS NOTES PT CALLED AND PT. REFUSED TO TALK TO HER
--- NOTE | 2017-03-03 22:30 | NUR ---
GPS RN NOTE, PT. REFUSED TO TAKE BOOST GLUCOSE CONTROL 237ML PO , SENOKOT 8.6MG PO HS, AND SEROQUEL 150MG PO HS. OFFERED BOOST, SENOKOT, AND SEROQUEL THREE TIMES BUT STILL PATIENT REFUSED STATING, " NO I DON'T WANT ANYTHING ". WHEN ASKED WHY SHE WON'T EAT, DRINK, OR TAKE MEDICATION NO RESPONSE IS GIVEN. EXPLAINED THE PATIENT ON THE RISK AND BENEFITS OF TAKING AND REFUSING MEDICATIONS. WILL CONTINUE TO MONITOR THIS PATIENT.
--- NOTE | 2017-03-04 06:44 | NUR ---
RN GPS NOTES PATIENT RESTING HER BED, NO ACUTE DISTRESS NOTED ,NO CHANGES IN STATUS. ALL NEEDS ATTENDED ANTICIPATED . DENIES SI/HI AT THIS TIME, PT. REFUSED ALL DUE MEDS NON COMPLIANT WITH MEDS ,WILL ENDORSE TO NEXT SHIFT FOR CONTINUITY CARE
[2017-03-04] MEDS: VENLAFAXINE XR 75 MG CAP.SR.24H PO SCH (08:59)
[2017-03-04] MEDS: DOCUSATE SODIUM 100 MG CAPSULE PO SCH ×2 (08:59→17:00)
[2017-03-04] MEDS: BETHANECHOL CHLORIDE (25 MG) 25 MG TABLET PO SCH ×2 (09:00→17:00)
[2017-03-04] MEDS: QUETIAPINE FUMARATE 25 MG TABLET PO SCH ×2 (09:00→17:00)
[2017-03-04] MEDS: BOOST GLUCOSE CONTROL VANILLA 237 ML BOX PO SCH ×4 (09:19→22:01)
[2017-03-04 16:26] VITALS: BP 130/91
--- NOTE | 2017-03-04 18:00 | NUR ---
GPS RN NOTES/ PATIENT REFUSED EAT BREAKFAST, LUNCH, AND DINNER, ALSO REFUSED DRINK AND TAKE MEDICATION PRESCRIBED, DR LYNCH, AND DR VENTURA AWARE OF, ENCOURAGED TO INCREASE FLUID INTAKE, LABS DONE, ACCORDING DR VENTURA NO OTHER ORDERS AT THIS TIME. ALLISON UED MONITORING. ENDORSED ONCOMING NURSE FOR CONTINUATION OF CARE.
[2017-03-04 20:45] VITALS: BP 129/95
[2017-03-04] MEDS: QUETIAPINE FUMARATE 100 MG TABLET PO SCH (22:00)
[2017-03-04] MEDS: SENNOSIDES 8.6 MG TABLET PO SCH (22:00)
--- NOTE | 2017-03-04 22:00 | NUR ---
GPS RN NOTE, PATIENT REFUSED TO TAKE SENOKOT 8.6MG PO HS AND SEROQUEL 150MG PO HS. OFFERED SENOKOT, AND SEROQUEL THREE TIMES BUT STILL PATIENT REFUSED STATING, " NO I DON'T WANT ANYTHING ". WHEN ASKED WHY SHE WON'T EAT, DRINK, OR TAKE MEDICATION NO RESPONSE IS GIVEN. EDUCATED THE PATIENT ON THE RISK AND BENEFITS OF TAKING AND REFUSING AFOREMENTIONED MEDICATIONS. WILL CONTINUE TO MONITOR THIS PATIENT.
[2017-03-05 07:26] LABS: CALCIUM, SERUM 8.8 mg/dL (8.5-10.1); CREATININE 0.6 mg/dL (0.6-1.3); MAGNESIUM 1.6 mg/dL (1.8-2.4); PHOSPHORUS 3.3 mg/dL (2.5-4.9); POTASSIUM 3.8 mmol/L (3.5-5.1)
[2017-03-05 08:00] VITALS: BP 119/76
[2017-03-05] MEDS: DOCUSATE SODIUM 100 MG CAPSULE PO SCH ×2 (09:00→17:00)
[2017-03-05] MEDS: VENLAFAXINE XR 75 MG CAP.SR.24H PO SCH (09:00)
[2017-03-05] MEDS: BETHANECHOL CHLORIDE (25 MG) 25 MG TABLET PO SCH ×2 (09:00→17:00)
[2017-03-05] MEDS: BOOST GLUCOSE CONTROL VANILLA 237 ML BOX PO SCH ×4 (09:00→21:00)
[2017-03-05] MEDS: QUETIAPINE FUMARATE 25 MG TABLET PO SCH ×2 (09:00→17:00)
--- NOTE | 2017-03-05 09:26 | NUR ---
EVP GLOBAL PRODUCT LEADERSHIP-NOTES PATIENT STRONGLY REFUSED ALL 0900AM MEDICATIONS INCLUDING BOOST SUPLEMENT DESPITE ENCOURAGEMENT AND EXPLANATIONS OF THE RISK AND BENEFITS. OFFERED X3
--- NOTE | 2017-03-05 11:11 | NUR ---
PAINTING TRADES WORKER-NOTES DR. VENTURA SEEN THE PATIENT AND AWARE OF PATIENT LABS RESULTS TODAY (MAG.1.6.BUN 20 AND NA 148). MD STATED TO CONTINUE MONITORING AND ENCOURAGE TO INCREASE P.O FLUID.
[2017-03-05 16:00] VITALS: BP 124/78
[2017-03-05] MEDS: SENNOSIDES 8.6 MG TABLET PO SCH (21:55)
[2017-03-05] MEDS: MAGNESIUM OXIDE 400 MG TABLET PO SCH (21:55)
[2017-03-05] MEDS: QUETIAPINE FUMARATE 100 MG TABLET PO SCH (21:56)
--- NOTE | 2017-03-05 21:57 | NUR ---
PT REFUSED ALL NIGHT TIME MEDS INCLUDING BOOST SUPPLEMENT. OFFERED 3X. EXPLAIN THE RISK AND BENEFITS OF NOT TAKING IT. PT STILL REFUSED. WILL CONTINUE TO MONITOR FOR SAFETY.
[2017-03-06 08:00] VITALS: BP 120/64
[2017-03-06] MEDS: BETHANECHOL CHLORIDE (25 MG) 25 MG TABLET PO SCH ×2 (09:00→17:00)
[2017-03-06] MEDS: BOOST GLUCOSE CONTROL VANILLA 237 ML BOX PO SCH ×4 (09:00→21:00)
[2017-03-06] MEDS: VENLAFAXINE XR 75 MG CAP.SR.24H PO SCH (09:00)
[2017-03-06] MEDS: QUETIAPINE FUMARATE 25 MG TABLET PO SCH ×2 (09:00→17:00)
[2017-03-06] MEDS: DOCUSATE SODIUM 100 MG CAPSULE PO SCH ×2 (09:00→17:00)
--- NOTE | 2017-03-06 10:00 | NUR ---
STOCK ORDER LISTER-NOTES PATIENT STRONGLY REFUSED ALL 0900AM MEDICATIONS INCLUDING HER BOOST SUPPLEMENT. ENCOURAGE AND EXPLAINED RISK AND BENEFITS BUT PATIENT STILL REFUSED. DR. LYNCH AND DR. LORENZO VALADEZ.
[2017-03-06] MEDS ORDERED: Folic acid 1 MG/0.2 ML VIAL SUBCUT ONE (12:00)
[2017-03-06] MEDS ORDERED: Folic acid 1 MG in IV D5W 50 ML IV ONE (12:00)
--- NOTE | 2017-03-06 12:49 | NUR ---
PEARL GLUE DRIER-NOTES DR. VENTURA SEEN THE PATIENT WITH IV MEDICATIONS ORDERS. PATIENT REFUSED IV LINE INSERTION AT THIS TIME. STATED" I DON'T WANT IT". EXPLAINED RISK AND BENEFITS BUT PATIENT GETS ANGRY. WILL TRY AGAIN LATER.
[2017-03-06] MEDS ORDERED: Thiamine 100 MG in IV D5W 50 ML IV ONE (13:00)
--- NOTE | 2017-03-06 13:11 | NUR ---
TERADATA DEVELOPER-NOTES PATIENT REFUSED BOOST SUPPLEMENT.
--- NOTE | 2017-03-06 13:30 | NUR ---
ELECTRONIC PREPRESS SYSTEM OPERATOR-NOTES PATIENT STILL REFUSED IV INSERTION.
--- NOTE | 2017-03-06 14:29 | NUR ---
BETO spoke with pt's , Williams Prater- [phone] who stated that he was confused about the riese hearing and had questions regarding patient being conserved. make up worker explained to Williams what the riese hearing entails, Williams was satisfied with the information provided. make up worker will follow-up.
[2017-03-06] MEDS: NACL IV PRN (15:40)
[2017-03-06] MEDS: D5 IV PRN (15:40)
[2017-03-06] MEDS: MVI ADULT IV PRN (15:40)
--- NOTE | 2017-03-06 15:43 | NUR ---
VENEER JOINTER HELPER-NOTES DR. VENTURA MADE AWARE OF PATIENT REFUSAL OF IV ACCESS.
[2017-03-06 16:11] VITALS: BP 118/93
--- NOTE | 2017-03-06 17:26 | NUR ---
RACKING TECHNICIAN-NOTES PATIENT REFUSED ALL 1700 PM MEDICATIONS INCLUDING HER BOOST SUPPLEMENT.OFFERED X3 STILL REFUSED.
[2017-03-06 20:00] VITALS: BP 111/66
[2017-03-06] MEDS: SENNOSIDES 8.6 MG TABLET PO SCH (21:46)
[2017-03-06] MEDS: MAGNESIUM OXIDE 400 MG TABLET PO SCH (21:46)
[2017-03-06] MEDS: QUETIAPINE FUMARATE 100 MG TABLET PO SCH (21:47)
[2017-03-07 08:00] VITALS: BP 124/75
[2017-03-07] MEDS: QUETIAPINE FUMARATE 25 MG TABLET PO SCH ×3 (09:00→17:00)
[2017-03-07] MEDS: BETHANECHOL CHLORIDE (25 MG) 25 MG TABLET PO SCH ×2 (09:00→17:00)
[2017-03-07] MEDS: BOOST GLUCOSE CONTROL VANILLA 237 ML BOX PO SCH ×4 (09:00→21:00)
[2017-03-07] MEDS: DOCUSATE SODIUM 100 MG CAPSULE PO SCH ×2 (09:00→17:00)
[2017-03-07] MEDS: VENLAFAXINE XR 75 MG CAP.SR.24H PO SCH ×2 (09:00→09:36)
[2017-03-07 16:00] VITALS: BP 128/79
--- NOTE | 2017-03-07 17:55 | NUR ---
GPS RN NOTES PATIENT REFUSED 0900, 1700 MEDICATION, REFUSED BREAKFAST, LUNCH, AND DINNER, ENCOURAGED TO INCREASE FLUID INTAKE, PT AMBULATORY, SELF CARE, NO ACUTE DISTRESS, NO RESPIRATORY DISTRESS, DISORGANIZED THOUGHTS, DELUSIONAL, ISOLATIVE, BOTH MD'S AWARE OF PATIENT CONDITION, PATIENT REFUSED LABS TODAY, CONTINUED MONITORING FOR SAFETY ALL THE TIME .ENDORSED ONCOMING NURSE FOR CONTINUATION OF CARE.
[2017-03-07 20:00] VITALS: BP 124/86
[2017-03-07] MEDS: MAGNESIUM OXIDE 400 MG TABLET PO SCH (21:34)
[2017-03-07] MEDS: QUETIAPINE FUMARATE 100 MG TABLET PO SCH (21:34)
[2017-03-07] MEDS: SENNOSIDES 8.6 MG TABLET PO SCH (21:34)
[2017-03-08 08:00] VITALS: BP 106/73
[2017-03-08] MEDS: BOOST GLUCOSE CONTROL VANILLA 237 ML BOX PO SCH ×4 (09:00→21:00)
[2017-03-08] MEDS: BETHANECHOL CHLORIDE (25 MG) 25 MG TABLET PO SCH ×2 (09:00→16:50)
[2017-03-08] MEDS: VENLAFAXINE XR 75 MG CAP.SR.24H PO SCH (09:00)
[2017-03-08] MEDS: QUETIAPINE FUMARATE 25 MG TABLET PO SCH ×2 (09:00→16:50)
[2017-03-08] MEDS: DOCUSATE SODIUM 100 MG CAPSULE PO SCH ×2 (09:00→16:50)
[2017-03-08 16:08] VITALS: BP 126/82
--- NOTE | 2017-03-08 18:00 | NUR ---
GPS RN NOTES PATIENT IN THE HALLWAY, DELUSIONAL, DISORGANIZED THOUGHTS, NO ACUTE DISTRESS, V/S WNL, ENCOURAGED TO INCREASE FLUID INTAKE, REFUSED 0900, 1700 MEDICATION, REFUSED BREAKFAST, LUNCH, AND DINNER, GET LAB ORDERS 03/09/17, NEXT TO THE TP . ENDORSED ONCOMING NURSE FOR CONTINUATION OF CARE.
[2017-03-08 20:01] VITALS: BP 134/89
[2017-03-08] MEDS: MAGNESIUM OXIDE 400 MG TABLET PO SCH (21:57)
[2017-03-08] MEDS: SENNOSIDES 8.6 MG TABLET PO SCH (21:58)
[2017-03-08] MEDS: QUETIAPINE FUMARATE 100 MG TABLET PO SCH (21:58)
--- NOTE | 2017-03-09 00:27 | NUR ---
Pt has been selectively mute mostly, refusing meds/care, with flat affect, quite anxious, paranoid, sitting on her bed awake for long periods tonight, & hypervigilant.
[2017-03-09 07:26] LABS: BASOPHILS % (AUTO) 0.6 % (0.0-2.0); EOSINOPHILS % (AUTO) 0.3 % (0.0-6.0); HEMATOCRIT 41 % (33-45); HEMOGLOBIN 13.6 g/dL (11.5-14.8); LYMPHOCYTES # (AUTO) 1.7 /CMM (0.8-4.8); LYMPHOCYTES % (AUTO) 36.5 % (20.0-44.0); MEAN CORPUSCULAR HEMOGLOBIN 31 PG (26.0-33.0); MEAN CORPUSCULAR HGB CONC 33 g/dl (31.0-36.0); MEAN CORPUSCULAR VOLUME 93 fL (82-100); MONOCYTES # (AUTO) 0.5 /CMM (0.1-1.30); MONOCYTES % (AUTO) 10.6 % (2.0-12.0); NEUTROPHILS # (AUTO) 2.5 /CMM (1.8-8.9); PLATELET COUNT (AUTO) 121 /CMM (150-450); RDW COEFFICIENT OF VARIATION 16.3 (11.5-15.0); RED BLOOD CELL COUNT(AUTO) 4.47 MIL/uL (4.0-5.2); WHITE BLOOD COUNT (AUTO) 4.8 K/uL (4.3-11.0)
[2017-03-09 07:34] LABS: CALCIUM, SERUM 9.3 mg/dL (8.5-10.1); CREATININE 0.8 mg/dL (0.6-1.3); PHOSPHORUS 3.8 mg/dL (2.5-4.9); POTASSIUM 3.5 mmol/L (3.5-5.1)
[2017-03-09 08:00] VITALS: BP 130/60
[2017-03-09 08:30] VITALS: BP 130/60
[2017-03-09] MEDS: BOOST GLUCOSE CONTROL VANILLA 237 ML BOX PO SCH ×4 (09:00→21:00)
[2017-03-09] MEDS: QUETIAPINE FUMARATE 25 MG TABLET PO SCH ×3 (09:00→17:00)
[2017-03-09] MEDS: VENLAFAXINE XR 75 MG CAP.SR.24H PO SCH (09:00)
[2017-03-09] MEDS: BETHANECHOL CHLORIDE (25 MG) 25 MG TABLET PO SCH ×2 (09:00→17:00)
[2017-03-09] MEDS: DOCUSATE SODIUM 100 MG CAPSULE PO SCH ×2 (09:00→17:00)
[2017-03-09 16:00] VITALS: BP 126/60
--- NOTE | 2017-03-09 17:46 | NUR ---
gps rn notes patient depress, selectively moot, refused care/ medication, and also refused IV blouse prn, both medical and psychiatrist aware of patient condition, v/s taken stable, labs done result notified md, no new orders at this time. Patent ambulatory, self care, encouraged increase fluid intake. continued monitoring. endorsed oncoming nurse for continuation of care.
--- NOTE | 2017-03-09 19:30 | NUR ---
GPS RN NOTE, RECEIVED PATIENT AWAKE AND IN BED, NO S/S OR COMPLAINTS OF PAIN AT THIS TIME. PATIENT IS DISPLAYING NO S/S OF APPARENT DISTRESS AT THIS TIME. PATIENT BREATHING IS UNLABORED WITH EQUAL RISE AND FALL OF THE CHEST. PATIENT HAS A FAMILY MEMBER AT THE BEDSIDE TYING TO ENCOURAGE THE PATIENT TO EAT. PATIENT IS ALERT AND ORIENTED X 1 ON ROOM AIR WITH A SPO2 98%. PATIENT NON COMPLAINT WITH MEDICATION, ANXIOUS, UNCOOPERATIVE AT TIMES, GUARDED, SUSPICIOUS, AND NEEDS REORIENTATION. PATIENT DENIES SUICIDE AND HOMICIDAL IDEATIONS AT THIS TIME. PATIENT ASSISTED WITH TURNING AND REPOSITIONING Q2HR AND PRN FOR COMFORT AND CIRCULATION. PATIENT HAS NO NEEDS AT THIS TIME. PATIENT EDUCATED ON THE USE OF THE CALL AMARO. PATIENT BED SIDE RAILS UP X2 FOR SAFETY, BED IS LOCKED AND LOW WILL CONTINUE TO MONITOR AND MAINTAIN SAFETY.
[2017-03-09] MEDS: MVI ADULT IV PRN (20:02)
[2017-03-09] MEDS: NACL IV PRN (20:02)
[2017-03-09] MEDS: D5 IV PRN (20:02)
--- NOTE | 2017-03-09 20:02 | NUR ---
GPS RN NOTE, PATIENT REFUSED TO HAVE IV INSERTED AND TO BE GIVEN 1AMP 10ML IN IV D5/0.45 NACL 1,000 ML 150 ML/HR Q6H44M PRN. OFFERED MEDICATION THREE TIMES AND STILL PATIENT REFUSED STATING, " NO, NO I DON'T WANT IT ". EDUCATED THE PATIENT ON THE RISKS AND BENEFITS OF TAKING AND REFUSING IV FLUIDS. WILL CONTINUE TO MONITOR THIS PATIENT CLOSELY.
[2017-03-09 20:17] VITALS: BP 149/50
[2017-03-09] MEDS: SENNOSIDES 8.6 MG TABLET PO SCH (21:53)
[2017-03-09] MEDS: QUETIAPINE FUMARATE 100 MG TABLET PO SCH (21:53)
[2017-03-09] MEDS: MAGNESIUM OXIDE 400 MG TABLET PO SCH (21:53)
--- NOTE | 2017-03-09 21:53 | NUR ---
GPS RN NOTE, PATIENT REFUSED TO TAKE MAG OXIDE 800MG PO HS, BOOST, SENOKOT 8.6MG PO HS AND SEROQUEL 150MG PO HS. OFFERED SENOKOT, BOOST, MAG OXIDE AND SEROQUEL THREE TIMES BUT STILL PATIENT REFUSED STATING, " NO, NO I DON'T TAKE MEDICATIONS ". WHEN ASKED WHY SHE WON'T EAT, DRINK, OR TAKE MEDICATION NO RESPONSE IS GIVEN. EDUCATED THE PATIENT ON THE RISK AND BENEFITS OF TAKING AND REFUSING AFOREMENTIONED MEDICATIONS. WILL CONTINUE TO MONITOR THIS PATIENT.
[2017-03-10 07:50] LABS: BASOPHILS % (AUTO) 0.3 % (0.0-2.0); EOSINOPHILS % (AUTO) 0.2 % (0.0-6.0); HEMATOCRIT 47 % (33-45); HEMOGLOBIN 15.3 g/dL (11.5-14.8); LYMPHOCYTES # (AUTO) 1.4 /CMM (0.8-4.8); LYMPHOCYTES % (AUTO) 18.3 % (20.0-44.0); MEAN CORPUSCULAR HEMOGLOBIN 31 PG (26.0-33.0); MEAN CORPUSCULAR HGB CONC 33 g/dl (31.0-36.0); MEAN CORPUSCULAR VOLUME 94 fL (82-100); MONOCYTES # (AUTO) 0.6 /CMM (0.1-1.30); MONOCYTES % (AUTO) 7.5 % (2.0-12.0); NEUTROPHILS # (AUTO) 5.6 /CMM (1.8-8.9); NEUTROPHILS % (AUTO) 73.7 % (43.0-81.0); PLATELET COUNT (AUTO) 173 /CMM (150-450); RDW COEFFICIENT OF VARIATION 17.1 (11.5-15.0); RED BLOOD CELL COUNT(AUTO) 4.97 MIL/uL (4.0-5.2); WHITE BLOOD COUNT (AUTO) 7.7 K/uL (4.3-11.0)
[2017-03-10] MEDS: BETHANECHOL CHLORIDE (25 MG) 25 MG TABLET PO SCH ×2 (08:38→17:00)
[2017-03-10] MEDS: DOCUSATE SODIUM 100 MG CAPSULE PO SCH ×2 (08:38→17:00)
[2017-03-10] MEDS: QUETIAPINE FUMARATE 25 MG TABLET PO SCH ×2 (08:38→17:00)
[2017-03-10] MEDS: VENLAFAXINE XR 75 MG CAP.SR.24H PO SCH (08:38)
[2017-03-10] MEDS: BOOST GLUCOSE CONTROL VANILLA 237 ML BOX PO SCH ×4 (08:39→20:08)
[2017-03-10 09:31] LABS: CALCIUM, SERUM 10.3 mg/dL (8.5-10.1); POTASSIUM 5.1 mmol/L (3.5-5.1)
[2017-03-10 09:35] LABS: PHOSPHORUS 4.8 mg/dL (2.5-4.9)
--- NOTE | 2017-03-10 10:00 | NUR ---
GPS RN NOTES/ PATIENT A/O X2/3, SELF CARE, AMBULATORY.V/S TAKEN STABLE. PT PARANOID, SELECTIVELY MUTE, STANDING FRONT OF DOOR SAME PLACE LONG TIME, REFUSED TAKE MEDICATION SCHEDULED , REFUSED BREAKFAST, AND REFUSED IV BOLUS ORDER, ALSO LAB RESULTS NOTIFIED DR VERA, AND GIVE ORDER OF NEPHROLOGY CONSULTATION, REPEAT LABS, AND ENCOURAGE PO INTAKE. ORDER TAKEN, AND CARRIED OUT. ENC PT TO DRINK FLUIDS , AND OFFERED JUICE AND SNACKS. SHE WAS ALSO GIVEN BOOST. EXPLAINED THE RISK OF REFUSING BOLUS HYDRATION.
[2017-03-10 16:00] VITALS: BP 127/82
[2017-03-10 17:34] LABS: CALCIUM, SERUM 11.1 mg/dL (8.5-10.1); CREATININE 2.8 mg/dL (0.6-1.3); POTASSIUM 4.7 mmol/L (3.5-5.1)
--- NOTE | 2017-03-10 18:00 | NUR ---
GPS RN NOTES/ CALLED Dr. DUBOSE AND LEFT MASSAGE ABOUT LAB RESULTS, PATIENT REFUSED KIDNEY US, REFUSED EAT, AND FLUID INTAKE. WAITING FOR RESPONDS
--- NOTE | 2017-03-10 18:36 | NUR ---
GPS RN NOTES/ GET CALL BACK FROM Dr. DUBOSE AND GET NEW ORDER NS 500ML BOLUS X1, AND NS 1000 /100 ML HR, ORDER TAKEN, AND CARRIED OUT,
[2017-03-10] MEDS ORDERED: IV NS 0.9% 1,000 ML BAG IV PRN (19:00)
[2017-03-10] MEDS ORDERED: IV NS 0.9% 1,000 ML IV PRN (19:00)
[2017-03-10] MEDS ORDERED: IV NS 0.9% 500 ML IV ONE (19:00)
[2017-03-10] MEDS ORDERED: IV NS 0.9% 1,000 ML IV ONE (19:00)
--- NOTE | 2017-03-10 19:00 | NUR ---
GPS RN NOTES STARTED IV LINT GAUGE 22 LEFT ANTECUBITAL AREA, INTACT, INFUSING NS 500 ML BOLUS,1;1 SITTER NEXT TO THE BED FOR SAFETY, ENDORSED ONCOMING NURSE FOR CONTINUATION OF CARE.
--- NOTE | 2017-03-10 19:31 | NUR ---
GPS/RN NOTE: RECEIVED PATIENT WITH IV INFUSION IN PROGRESS, HAS A 1:1 SITTER FOR SAFETY TO PREVENT PULLING OF THE IV LINE. PATIENT IS UNCOOPERATIVE. AWAKE, ALERT, ORIENTED X2-3. NO APPARENT DISTRESS NOTED. WILL CONTINUE TO MONITOR.
[2017-03-10 20:08] VITALS: BP 120/72
[2017-03-10] MEDS: MAGNESIUM OXIDE 400 MG TABLET PO SCH (21:24)
--- NOTE | 2017-03-10 21:25 | NUR ---
GPS/RN NOTE: PATIENT REFUSED HER MAG OXIDE 800 MG TAB PO, EXPLAINED X3 BENEFITS.
[2017-03-10] MEDS: SENNOSIDES 8.6 MG TABLET PO SCH (21:26)
[2017-03-10] MEDS: QUETIAPINE FUMARATE 100 MG TABLET PO SCH (21:28)
--- NOTE | 2017-03-10 21:28 | NUR ---
GPS/RN NOTE: PATIENT REFUSED TO TAKE HER SEROQUEL 150 MG TAB PO, EXPLAINED BENEFITS X3.
--- NOTE | 2017-03-10 21:32 | NUR ---
GPS/RN NOTE: PATIENT REFUSED HER SENOKOT 8.6 MG TAB PO, EXPLAINED BENEFITS X3.
--- NOTE | 2017-03-10 22:01 | NUR ---
GPS/RN NOTE: CHECKED PATIENT, AWAKE AND RESPONSIVE. OFFERED HER NIGHT MEDS AGAIN, STILL REFUSED.
[2017-03-10] MEDS: ZOLPIDEM TARTRATE 5 MG TABLET PO PRN (23:08)
--- NOTE | 2017-03-10 23:09 | NUR ---
GPS/RN NOTE: PATIENT STILL AWAKE, AMBIEN 5 MG TAB PO GIVEN.
--- NOTE | 2017-03-11 00:20 | NUR ---
GPS/RN NOTE: PATIENT SLEEPING AT THIS TIME. SLEEPING PILL EFFECTIVE.
--- NOTE | 2017-03-11 06:10 | NUR ---
GPS/RN NOTE: PAGED Regina OLIVARES., RE: PATIENT DID NOT PASS ANY URINE, BLADDER IS DISTENDED.
[2017-03-11 06:34] LABS: BASOPHILS % (AUTO) 0.3 % (0.0-2.0); HEMATOCRIT 37 % (33-45); HEMOGLOBIN 12.3 g/dL (11.5-14.8); LYMPHOCYTES # (AUTO) 1.7 /CMM (0.8-4.8); LYMPHOCYTES % (AUTO) 24.7 % (20.0-44.0); MEAN CORPUSCULAR HEMOGLOBIN 31 PG (26.0-33.0); MEAN CORPUSCULAR HGB CONC 33 g/dl (31.0-36.0); MEAN CORPUSCULAR VOLUME 94 fL (82-100); MONOCYTES % (AUTO) 13.7 % (2.0-12.0); NEUTROPHILS # (AUTO) 4.3 /CMM (1.8-8.9); NEUTROPHILS % (AUTO) 61.3 % (43.0-81.0); PLATELET COUNT (AUTO) 107 /CMM (150-450); RDW COEFFICIENT OF VARIATION 16.9 (11.5-15.0); RED BLOOD CELL COUNT(AUTO) 3.91 MIL/uL (4.0-5.2)
[2017-03-11 07:01] LABS: CALCIUM, SERUM 8.6 mg/dL (8.5-10.1); CREATININE 1.7 mg/dL (0.6-1.3); POTASSIUM 3.5 mmol/L (3.5-5.1)
--- NOTE | 2017-03-11 07:47 | NUR ---
GPS/RN NOTE: IN AND OUT CATHETERIZATION DONE, OBTAINED 2500 ML OF VERY CONCENTRATED URINE, SENT UA AND CULTURE.
--- NOTE | 2017-03-11 08:00 | NUR ---
RECAPPER RECEIVED PT IN BED AWAKE DISORIENTED, PT REFUSES ALL CARE REFUSES MEDS DOES NOT DRINK OR EAT ANYTHING, IV ACCESS NOT PATENT REMOVED IV LINE, PT REFUSES TO START ANOTHER IV LINE, MD OLIVARES IV MULTIVITAMIN AND IV FLUIDS WILL CHECK BMP TOMORROW AM. SITTER 1:1 AT BEDSIDE PT CRYING DOES NOT WANT TO ANSWER ANY QUESTIONS KEEPS SAYING "NO NO NO".
[2017-03-11] MEDS: QUETIAPINE FUMARATE 25 MG TABLET PO SCH (08:54)
[2017-03-11] MEDS: BOOST GLUCOSE CONTROL VANILLA 237 ML BOX PO SCH ×4 (08:54→21:00)
[2017-03-11] MEDS: VENLAFAXINE XR 75 MG CAP.SR.24H PO SCH (08:54)
[2017-03-11] MEDS: BETHANECHOL CHLORIDE (25 MG) 25 MG TABLET PO SCH ×2 (08:54→16:34)
[2017-03-11] MEDS: DOCUSATE SODIUM 100 MG CAPSULE PO SCH ×2 (08:54→16:34)
--- NOTE | 2017-03-11 09:00 | NUR ---
manager agriculture pt has sacral discoloization pt is in bed refusing to be turned or get out of bed, teaching done regarding danger of laying supine long periods of time pt still refuses to eat turn or be attended to, pt refused photo of the sacrum z pio and wound consult ordered.
[2017-03-11] MEDS ORDERED: MVI ADULT IV PRN (10:30)
[2017-03-11] MEDS ORDERED: D5 IV PRN (10:30)
[2017-03-11] MEDS ORDERED: NACL IV PRN (10:30)
--- NOTE | 2017-03-11 15:41 | NUR ---
, Williams attended [facility] hearing on the unit and then called [facility] and requested that they accept pt. He then handed the phone to this food writer. Facility did not make any commitment to take the pt. They requested that chart be faxed to them. . Portion of the record was faxed to them by Lara in intake. Intake number of [phone] was given to [facility] as a callback number if they are willing to accept pt.
[2017-03-11] MEDS: HALOPERIDOL LACTATE INJ 5 MG/ML VIAL IM PRN ×2 (16:31→23:07)
[2017-03-11] MEDS: HALOPERIDOL 5 MG TABLET PO SCH ×2 (16:34→21:00)
[2017-03-11] MEDS: diphenhydrAMINE HCL 50 MG/ML VIAL IM PRN ×2 (17:03→23:07)
--- NOTE | 2017-03-11 17:30 | NUR ---
VIGOUREUX PRINTER PT DID NOT HAVE ANY URINE OUTPUT BLADDER SCAN DONE PT HAS RESIDUAL 275MLS. NO NEED FOR STRAIGHT CATH PT DENIES PAIN IN GROWN AREA. DR. NATALIE FRIAS WAS PAGED FOR CONSOLATION ORDER DID NOT RETURN CALL AT THIS TIME.
--- NOTE | 2017-03-11 17:58 | NUR ---
agriculturist aware DR. Thompson regarding pt not eating drinking and refusing medications. Md aware of pt recent critical lab values, Psychiatrist ordered im prn Haldol and Benadryl if pt refuses Po Meds. pt still refused Po Meds made all attempts to teach pt regarding the side effects of not coupling with Meds and food. pt still refused, Im Benadryl and Haldol administered
[2017-03-11] MEDS: MAGNESIUM OXIDE 400 MG TABLET PO SCH (22:00)
[2017-03-11] MEDS: SENNOSIDES 8.6 MG TABLET PO SCH (22:00)
[2017-03-11] MEDS ORDERED: diphenhydrAMINE HCL 50 MG/ML VIAL ONE (23:01)
--- NOTE | 2017-03-11 23:05 | NUR ---
GPS RN NOTE: IM SHOT OF BENADRYL AND HALDOL ADMINISTERED D/T REFUSAL OF HALDOL PO MEDICATION. EXPLAINED THE RISK AND BENEFITS, OFFERED X 3, PATIENT STILL REFUSED.
[2017-03-12 07:45] LABS: APPEARANCE,URINE SL CLOUDY (CLEAR); BILIRUBIN,URINE 1+ (NEGATIVE); BLOOD, URINE 1+ Ery/uL (NEGATIVE); COLOR,URINE YELLOW (YELLOW); KETONES,URINE TRACE (NEGATIVE); LEUKOCYTE ESTERASE ,URINE 3+ (NEGATIVE); NITRITE, URINE NEGATIVE (NEGATIVE); PROTEIN,URINE 1+ mg/dl (NEGATIVE); UGLUCOSE NEGATIVE (NEGATIVE)
[2017-03-12 07:51] LABS: BACTERIA,URINE Few /HPF (None Seen); SQUAMOUS EPITHELIAL CELL,UR Few /HPF (None Seen); WBC,URINE TOO NUMEROUS TO COUN /HPF (0-3)
[2017-03-12 07:58] LABS: CREATININE, URINE 147.3 MG/DL (30.0-125.0)
[2017-03-12] MEDS: BETHANECHOL CHLORIDE (25 MG) 25 MG TABLET PO SCH ×2 (09:00→17:00)
[2017-03-12] MEDS: DOCUSATE SODIUM 100 MG CAPSULE PO SCH ×2 (09:00→17:00)
[2017-03-12] MEDS: VENLAFAXINE XR 75 MG CAP.SR.24H PO SCH (09:00)
[2017-03-12] MEDS: Z GUARD REMEDY 2 OZ OINT TP SCH (09:00)
[2017-03-12] MEDS: HALOPERIDOL 5 MG TABLET PO SCH ×4 (09:00→21:00)
[2017-03-12] MEDS: BOOST GLUCOSE CONTROL VANILLA 237 ML BOX PO SCH ×4 (09:00→21:00)
[2017-03-12] MEDS: HALOPERIDOL LACTATE INJ 5 MG/ML VIAL IM PRN ×4 (10:39→22:01)
[2017-03-12] MEDS: diphenhydrAMINE HCL 50 MG/ML VIAL IM PRN (10:48)
[2017-03-12 16:00] VITALS: BP 120/69
[2017-03-12 20:00] VITALS: BP 115/45
[2017-03-12 20:57] LABS: CALCIUM, SERUM 9.1 mg/dL (8.5-10.1); CREATININE 2.2 mg/dL (0.6-1.3); POTASSIUM 3.6 mmol/L (3.5-5.1)
[2017-03-12] MEDS: SENNOSIDES 8.6 MG TABLET PO SCH (21:40)
[2017-03-12] MEDS: MAGNESIUM OXIDE 400 MG TABLET PO SCH (21:40)
--- NOTE | 2017-03-12 22:07 | NUR ---
GPS/CONCRETE PUMP OPERATOR HELPER NOTES: PT. ON REISED. PT. REFUSED HS HALDOL 2.5MG PO ORDERED. OFFERED 3X. EXPLAINED RISK AND BENEFITS. PT. STILL REFUSED. PT. GIVEN HALDOL 2.5MG IM ORDERED. NO DISTRESS NOTED. WILL CONTINUE TO MONITOR Q 15 MIN FOR SAFETY AND BEHAVIOR.
[2017-03-13 07:07] LABS: BASOPHILS % (AUTO) 0.2 % (0.0-2.0); HEMATOCRIT 37 % (33-45); HEMOGLOBIN 12.1 g/dL (11.5-14.8); LYMPHOCYTES # (AUTO) 0.9 /CMM (0.8-4.8); LYMPHOCYTES % (AUTO) 14.5 % (20.0-44.0); MEAN CORPUSCULAR HEMOGLOBIN 31 PG (26.0-33.0); MEAN CORPUSCULAR HGB CONC 33 g/dl (31.0-36.0); MEAN CORPUSCULAR VOLUME 95 fL (82-100); MONOCYTES # (AUTO) 0.7 /CMM (0.1-1.30); MONOCYTES % (AUTO) 11.7 % (2.0-12.0); NEUTROPHILS # (AUTO) 4.7 /CMM (1.8-8.9); NEUTROPHILS % (AUTO) 73.6 % (43.0-81.0); PLATELET COUNT (AUTO) 68 /CMM (150-450); RDW COEFFICIENT OF VARIATION 17.3 (11.5-15.0); RED BLOOD CELL COUNT(AUTO) 3.87 MIL/uL (4.0-5.2); WHITE BLOOD COUNT (AUTO) 6.4 K/uL (4.3-11.0)
[2017-03-13 07:29] LABS: CALCIUM, SERUM 9.2 mg/dL (8.5-10.1); CREATININE 2.3 mg/dL (0.6-1.3); MAGNESIUM 2.2 mg/dL (1.8-2.4); PHOSPHORUS 4.1 mg/dL (2.5-4.9); POTASSIUM 3.7 mmol/L (3.5-5.1)
--- NOTE | 2017-03-13 07:44 | NUR ---
GPS RN: PATIENT IS WITH CRITICALLY HIGH SODIUM 158MG/DL. DR. VERA NOTIFIED WITH NEW ORDER 1000ML OF D5 1/2NS @ 75CC/HR. PERIPHERAL IV 22G STARTED ON THE LEFT HAND , ATTEMPTED X2. 1:1 SITTER AT BEDSIDE FOR SAFETY. PATIENT IS IN BED, VS STABLE, CONTINUE TO MONITOR THE PATIENT.
[2017-03-13 08:00] VITALS: BP 136/86
[2017-03-13] MEDS ORDERED: IV D5/0.45 NACL 1,000 ML IV ONE (08:00)
[2017-03-13] MEDS: DOCUSATE SODIUM 100 MG CAPSULE PO SCH ×2 (09:00→17:00)
[2017-03-13] MEDS: VENLAFAXINE XR 75 MG CAP.SR.24H PO SCH (09:00)
[2017-03-13] MEDS: Z GUARD REMEDY 2 OZ OINT TP SCH (09:00)
[2017-03-13] MEDS: HALOPERIDOL 5 MG TABLET PO SCH ×4 (09:00→21:00)
[2017-03-13] MEDS: BOOST GLUCOSE CONTROL VANILLA 237 ML BOX PO SCH ×4 (09:00→21:00)
[2017-03-13] MEDS: BETHANECHOL CHLORIDE (25 MG) 25 MG TABLET PO SCH ×2 (09:00→17:00)
[2017-03-13 09:18] LABS: LYMPHOCYTES % (MANUAL) 11 % (16-48); MONOCYTES % (MANUAL) 13 % (0-11.0); NEUTROPHILS % (MANUAL) 76 (42-76)
--- NOTE | 2017-03-13 09:30 | NUR ---
GPS RN: DR. LYNCH NOTIFIED OF PATIENT'S CRITICAL LABS (NA 158MG/DL). PER DR. LYNCH IT IS OK TO GIVE IM HALDOL OF PATIENT REFUSES HALDOL PO. APPROACHED PATIENT X3, SHE REPEATEDLY SAYING "NO, NO, NO" AND REFUSING ALL HER DUE MEDICATIONS. HALDOL IM ADMINISTERED ORDERED.
[2017-03-13] MEDS: HALOPERIDOL LACTATE INJ 5 MG/ML VIAL IM PRN ×4 (09:35→21:26)
--- NOTE | 2017-03-13 14:29 | NUR ---
GPS RN: PATIENT IS DUE FOR MRSA SWAB DUE TO THE LENGTH OF STAY > 21DAY. PATIENT REFUSED MRSA X3.
[2017-03-13 16:00] VITALS: BP_SYST 101; BP_SYST 107; BP_DIAS 49; BP_DIAS 61
--- NOTE | 2017-03-13 18:06 | NUR ---
GPS RN: PATIENT HAS NO URINE OUTPUT FOR THIS SHIFT. BLADDER SCAN SHOWS 927CC OF URINE. LIDIA TAM PAGED, RECEIVED AN ORDER FOR A STRAIGHT CATH.
--- NOTE | 2017-03-13 18:30 | NUR ---
GPS RN: REMOVED 700CC OF DARK YELLOW, FOUL SMELLING URINE VIA STRAIGHT CATH.
[2017-03-13 20:00] VITALS: BP 125/80
[2017-03-13] MEDS: SENNOSIDES 8.6 MG TABLET PO SCH (21:34)
[2017-03-13] MEDS: MAGNESIUM OXIDE 400 MG TABLET PO SCH (21:34)
--- NOTE | 2017-03-14 07:18 | NUR ---
GPS RN NOTES NO OUTPUT NOTED THIS SHIFT. BLADDER SCAN DONE. SHOWS 647CC. ENDORSED TO DAY SHIFT RN.
[2017-03-14 07:20] LABS: BASOPHILS % (AUTO) 0.2 % (0.0-2.0); HEMATOCRIT 35 % (33-45); HEMOGLOBIN 11.4 g/dL (11.5-14.8); LYMPHOCYTES # (AUTO) 1.3 /CMM (0.8-4.8); LYMPHOCYTES % (AUTO) 27.1 % (20.0-44.0); MEAN CORPUSCULAR HEMOGLOBIN 31 PG (26.0-33.0); MEAN CORPUSCULAR HGB CONC 33 g/dl (31.0-36.0); MEAN CORPUSCULAR VOLUME 95 fL (82-100); MONOCYTES # (AUTO) 0.5 /CMM (0.1-1.30); MONOCYTES % (AUTO) 10.7 % (2.0-12.0); NEUTROPHILS # (AUTO) 2.9 /CMM (1.8-8.9); PLATELET COUNT (AUTO) 66 /CMM (150-450); RDW COEFFICIENT OF VARIATION 17.2 (11.5-15.0); RED BLOOD CELL COUNT(AUTO) 3.68 MIL/uL (4.0-5.2); WHITE BLOOD COUNT (AUTO) 4.7 K/uL (4.3-11.0)
[2017-03-14 07:33] LABS: CALCIUM, SERUM 8.7 mg/dL (8.5-10.1); CREATININE 1.1 mg/dL (0.6-1.3); MAGNESIUM 2.1 mg/dL (1.8-2.4); PHOSPHORUS 3.1 mg/dL (2.5-4.9); POTASSIUM 3.4 mmol/L (3.5-5.1)
--- NOTE | 2017-03-14 08:27 | NUR ---
GPS/RN EPIC GROUP CALLED VIA EXCHANGE TO REPORT CRITICAL LABS. WAITING FOR CALL BACK.
[2017-03-14] MEDS: BOOST GLUCOSE CONTROL VANILLA 237 ML BOX PO SCH (08:43)
[2017-03-14] MEDS: VENLAFAXINE XR 75 MG CAP.SR.24H PO SCH (08:44)
[2017-03-14] MEDS: Z GUARD REMEDY 2 OZ OINT TP SCH (08:44)
[2017-03-14] MEDS: BETHANECHOL CHLORIDE (25 MG) 25 MG TABLET PO SCH (08:44)
[2017-03-14] MEDS: HALOPERIDOL 5 MG TABLET PO SCH (08:44)
[2017-03-14] MEDS: DOCUSATE SODIUM 100 MG CAPSULE PO SCH (08:44)
--- NOTE | 2017-03-14 09:00 | NUR ---
GPS/RN ORDER TO TRANSFER PT TO MED/SURGE RECEIVED FROM YONATAN PEDRAZA. SHARED SERVICES REPRESENTATIVE DEANGELO NOTIFIED. WAITING FOR BED AVAILABLE @ M/S
--- NOTE | 2017-03-14 09:16 | NUR ---
DR. BARBOSA NOTIFIED THAT PT. WITH AN ORDER TO TRANSFER TO MED-SURG AND ORDERED TO D/C TO MED- SURG AND TO CONTINUE ON HOLD AND TO CONTINUE SAME MEDS.
[2017-03-14] MEDS: HALOPERIDOL LACTATE INJ 5 MG/ML VIAL IM PRN (09:47)
[2017-03-14] MEDS ORDERED: IV D5/0.45 NACL 1,000 ML IV ONE (10:00)
[2017-03-14] MEDS ORDERED: IV D5W 1,000 ML IV PRN (10:30)
--- NOTE | 2017-03-14 10:40 | NUR ---
GPS/RN PT D/C TO 307-2. NO SI OR HI NOTED AT THE TIME OF D/C. BELONGINGS RETURNED. REPORT GIVEN TO ADMITTING NURSE WINIFRED LAZO A THE BEDSIDE ON 3RD FLOOR. FAMILY MEMBER() NOTIFIED OF TRANSFER BY CHARGE NURSE.
[2017-03-14 11:18] LABS: LYMPHOCYTES % (MANUAL) 24 % (16-48); MONOCYTES % (MANUAL) 6 % (0-11.0); NEUTROPHILS % (MANUAL) 70 (42-76)
[2017-03-14] MEDS ORDERED: ALLA266C2 TP (11:43)
[2017-03-14] MEDS ORDERED: VENL75CA62 PO (11:43)
[2017-03-14] MEDS ORDERED: HALO2TAB7 PO (11:43)
[2017-03-14] MEDS ORDERED: MAGN400T26 PO (11:43)
[2017-03-14] MEDS ORDERED: MAG30ORA PO (11:43)
[2017-03-14] MEDS ORDERED: ZOLP5TAB2 PO (11:43)
[2017-03-14] MEDS ORDERED: HALO5VIA12 IM (11:43)
[2017-03-14] MEDS ORDERED: LORA1TAB PO (11:43)
[2017-03-14] MEDS ORDERED: ACET-868 PO (11:43)
--- NOTE | 2017-03-14 12:11 | NUR ---
ROLLY BOWSER WAS NOTIFIED ABOUT THE TRANSFER TO [facility].
== END 2017-03-14 10:40 | disposition short-term general hospital (02) | DRG 885 ==
LOC: GPS 22:37
PROVIDERS: ADMIT Psychiatry & Neurology Psychiatry; ATTEND Internal Medicine
DX: F32.3 Major depressive disorder, single episode, severe with psychotic features (principal); E43 Unspecified severe protein-calorie malnutrition; F50.9 Eating disorder, unspecified; N17.0 Acute kidney failure with tubular necrosis; N18.9 Chronic kidney disease, unspecified; D69.6 Thrombocytopenia, unspecified; E87.0 Hyperosmolality and hypernatremia; E83.42 Hypomagnesemia; E86.0 Dehydration; D64.9 Anemia, unspecified; F41.9 Anxiety disorder, unspecified; E78.5 Hyperlipidemia, unspecified; K21.9 Gastro-esophageal reflux disease without esophagitis; I12.9 Hypertensive chronic kidney disease with stage 1 through stage 4 chronic kidney disease, or unspecified chronic kidney disease; Z87.891 Personal history of nicotine dependence; Z82.49 Family history of ischemic heart disease and other diseases of the circulatory system; E87.6 Hypokalemia; F29 Unspecified psychosis not due to a substance or known physiological condition; Z73.6 Limitation of activities due to disability; Z68.23 Body mass index [BMI] 23.0-23.9, adult
CPT/HCPCS: 36415; 72100-TC; 72220-TC; 80048-TC; 80053-TC; 80061-TC; 81000-TC; 82306; 82570-TC; 82652; 82746; 83540-TC; 83735-TC; 83970; 84100-TC; 84300-TC; 84443-TC; 85025-TC; 87081-TC; 87086-TC; J1200; J1630; J2060; J3411; J3490; J7030; J7040; J7060; J7070; Z7610

== ENCOUNTER 2017-03-14 11:31 | Inpatient (IN) | payer MEDICARE, OTHER ==
[~2017-03-14] VITALS: Ht 162.6 cm; Wt 57.6 kg
[2017-03-14 10:45] VITALS: BP 160/87
--- NOTE | 2017-03-14 10:45 | NUR ---
RN Initial Notes: Patient admitted from GPS per Dr. Balbuena's orders. Patient alert oriented x3. Patient stable. Non-labored breathing on room air. Dr. Balbuena aware of patient's vital signs and condition. Report received from Leo. Multiple bruises on left upper extremity. Bruising noted on patient's lower extremity. Patient refused to have bruises measured. She also refused to have pictures taken. Patient has IV 22 gauge on left hand that is patent and intact. Patient is RIESED. Valuables accounted for. Patient's aware of admission. Will continue to monitor.
--- NOTE | 2017-03-14 10:45 | NUR ---
RN Initial Notes: Patient admitted from GPS per Dr. Balbuena's orders. Patient alert oriented x3. Patient stable. Non-labored breathing on room air. Dr. Balbuena aware of patient's vital signs, condition, and labs. Report received from Leo. Multiple bruises on left upper extremity. Bruising noted on patient's lower extremity. Patient refused to have bruises measured. She also refused to have pictures taken. Patient has IV 22 gauge on left hand that is patent and intact. Patient is RIESED. Valuables accounted for. Patient's aware of admission. Will continue to monitor
[~2017-03-14 11:31] MED LIST: BETH50TA PO; DOCU-170 PO; HEPA SUBCUT; OLAN5TAB3 PO; SENN25TA8 PO; SENN8.6T19 PO; THIA100V2 IV
[2017-03-14] MEDS ORDERED: VENL75CA62 PO (11:43)
[2017-03-14] MEDS ORDERED: MAGN400T26 PO (11:43)
[2017-03-14] MEDS ORDERED: ACET-868 PO (11:43)
[2017-03-14] MEDS ORDERED: ALLA266C2 TP (11:43)
[2017-03-14] MEDS ORDERED: HALO2TAB7 PO (11:43)
[2017-03-14] MEDS ORDERED: ZOLP5TAB2 PO (11:43)
[2017-03-14] MEDS ORDERED: HALO5VIA12 IM (11:43)
[2017-03-14] MEDS ORDERED: MAG30ORA PO (11:43)
[2017-03-14] MEDS ORDERED: LORA1TAB PO (11:43)
[2017-03-14] MEDS ORDERED: HALOPERIDOL 5 MG TABLET PO PRN (12:00)
[2017-03-14] MEDS ORDERED: HALOPERIDOL LACTATE INJ 5 MG/ML VIAL IM PRN (12:00)
[2017-03-14] MEDS ORDERED: HYDROCODONE/APAP 5/325MG 1 EACH TABLET PO PRN (12:00)
[2017-03-14] MEDS ORDERED: ACETAMINOPHEN 325 MG TABLET PO PRN (12:00)
[2017-03-14] MEDS ORDERED: ONDANSETRON HCL/PF 4 MG/2 ML VIAL IVP PRN (12:00)
[2017-03-14] MEDS ORDERED: ZOLPIDEM TARTRATE 5 MG TABLET PO PRN (12:00)
[2017-03-14] MEDS ORDERED: Z GUARD REMEDY 2 OZ OINT TP PRN (12:00)
[2017-03-14 12:47] LABS: CALCIUM, SERUM 8.7 mg/dL (8.5-10.1); CREATININE 1.1 mg/dL (0.6-1.3); POTASSIUM 3.3 mmol/L (3.5-5.1)
--- NOTE | 2017-03-14 12:52 | NUR ---
RN NOTES: Received a phone call from lab with critical lab value sodium 162. Alerted Dr. Balbuena. No new orders
[2017-03-14] MEDS: IV D5W 1,000 ML IV PRN (14:57)
[2017-03-14] MEDS: BETHANECHOL CHLORIDE (25 MG) 25 MG TABLET PO SCH (16:01)
[2017-03-14] MEDS: BOOST PLUS FOOD-CHOCLATE 237 ML BOX PO SCH (18:26)
--- NOTE | 2017-03-14 19:15 | NUR ---
RN Notes: Bladder scan indicated more than 999ml. Dr. Balbuena ordered to insert a damon catheter. A 16 palestinian damon catheter was inserted. A urine out of 350 ml of clear dark yellow urine is the output. No signs of bleeding.
--- NOTE | 2017-03-14 19:20 | NUR ---
MS RN Closing Notes: Patient resting in bed. Patient alert oriented x3. Patient stable. Non-labored breathing on room air. Patient kept clean and dry. No facial grimacing noted. Sitter at beside. Bed in lowest/locked position. Endorsed to next shift.
[2017-03-14 19:35] VITALS: BP 141/72
--- NOTE | 2017-03-14 19:35 | NUR ---
MS/MAINTENANCE MILLWRIGHT; RECEIVED PT'S REPORTS FROM THE DAY SHIFT RN FOR CONTINUITY OF CARE. AT THIS TIME PT IN BED AWAKE BUT QUIET BREATHING NON LABORED AND EVEN. IV LINE INTACT. FC INTACT WITH JESSICA CLOUDY URINE . IVF D5W AT 75 ML /HOUR RESUMED. BED ON LOWER POSITION AND LOCKED FOR SAFETY. UPPER PART OF BED SIDE RAILS ARE FOR SAFETY. SITTER 1: 1 PRESENT IN THE ROOM. CONTINUE TO MONITOR. CALL LIGHT WITHIN REACH.
[2017-03-14 20:05] LABS: CALCIUM, SERUM 8.5 mg/dL (8.5-10.1); CREATININE 0.9 mg/dL (0.6-1.3)
[2017-03-14 20:15] LABS: POTASSIUM 2.7 mmol/L (3.5-5.1)
--- NOTE | 2017-03-14 20:15 | NUR ---
MS/DIRECTOR DRUG; LAB. CALLED FOR PT'S LABS. RESULTS; NA 162 ; K 2.7. CHARGE NURSE DAYANNA DUNNE. SHE SAID TO CALL .
--- NOTE | 2017-03-14 20:45 | NUR ---
MS/SIGN LANGUAGE INSTRUCTOR; PLACED A CALL TO DR. MARIE JUAREZ AND I NOTIFIED HER BY PHONE THAT PT'S LABS. RESULTS NA 162 ; K 2.7. DR. MARIE JUAREZ WITH ORDERS OF POTASSIUM PHOSPHATE 30 MMOL IV X ONE ; AND MAGNESIUM 2 GM IV X ONE. CHARGE NURSE INFORMED OF THIS ORDERS
[2017-03-14] MEDS ORDERED: HEPARIN SODIUM, PORCINE 5000 UNITS/1 ML VIAL SQ SCH (21:00)
[2017-03-14] MEDS ORDERED: POTASSIUM PHOSPHATE MM 15 MMOL in IV D5W 250 ML IV SCH (21:30)
[2017-03-14] MEDS ORDERED: Magnesium 1GM/D5W 100ML PREMIX PIGGYBACK IV ONE (21:30)
[2017-03-14] MEDS ORDERED: Magnesium 1GM/D5W 100ML PREMIX 200 ML IV ONE (21:54)
[2017-03-14] MEDS: MAGNESIUM OXIDE 400 MG TABLET PO SCH (22:30)
--- NOTE | 2017-03-14 22:30 | NUR ---
MS/TEST ENG; [facility] PH[facility]ACIST CALLED ME TO TRY GIVE POTASSIUM PO AND WANTS ME TO CALL DR MARIE JUAREZ AGAIN. I TOLD THE PHARMACIST THAT PT HAS BEEN REFUSING TO EAT , DRINK . PT REFUSED TO TAKE MAG OXIDE 800 MG PO AT THIS TIME. CHARGE NURSE MADE AWARE SO WITH DR. SALAZAR THAT WI REFUSED TO TAKE HER MAG OXIDE 800 MG PO AT THIS TIME. SO CHARGE NURSE SAID TO CALL DR. MARIE JUAREZ AGAIN AND ASK IF IT IS OK TO TO GIVE POTASSIUM CHLORIDE IV INSTEAD OF POTASSIUM PHOSPHATE BECAUSE POTASSIUM PHOSPHATE NEEDS CENTRAL LINE.
--- NOTE | 2017-03-14 22:45 | NUR ---
MS/FAMILY CONSUMER SCIENTIST; I PLACED A CALL TO DR. MRAIE JUAREZ AND I SPOKE TO HER VIA PHONE THAT IT NEEDS CENTRAL LINE FOR THE POTASSIUM PHOSPHATE. SO SHE ORDERED TO GIVE POTASSIUM CHLORIDE 40 MEQ IV X ONE. PHARMACIST MADE AWARE OF THIS NEW CHANGE ORDER OF POTASSIUM CHLORIDE 40 MEQ IV X ONE. ALSO CHARGE NURSE AND THE SHADOWGRAPH SCALE OPERATOR WAS AWARE.
--- NOTE | 2017-03-14 22:50 | NUR ---
MS/SUPERVISOR SPECIAL SERVICES; NURSING ALARM MECHANIC TALKED TO THE PHARMACIST REGARDING THE ORDERS.
[2017-03-14] MEDS ORDERED: POTASSIUM CL. PREMIX PERIPHER. 200 ML ONE (23:20)
[2017-03-14] MEDS ORDERED: POTASSIUM CHLORIDE 10 MEQ/50 ML PREMIXED IVPB FOR PERIPHERAL LINE IV ONE (23:30)
[2017-03-15] MEDS: POTASSIUM CL. PREMIX PERIPHER. 50 ML IV SCH ×8 (01:41→16:11)
--- NOTE | 2017-03-15 03:15 | NUR ---
FABIEN/LAMP ASSEMBLER; ENDORSED TO THE RN MIRIAM FOR CONTINUITY OF CARE.
--- NOTE | 2017-03-15 03:15 | NUR ---
RN NOTES RECEIVE PATIENT FROM JAE LOVELL TO RESUME CARE. PATIENT IS ALERT AND AWAKE, RESTING COMFORTABLY IN BED, NON VERBAL AT TIMES. NO SOB, NO DISTRESS, WITH ONE ON ONE SITTER AT THE BEDSIDE. CURRENTLY RECEIVING POTASSIUM REPLACEMENT VIA IVP. WILL CONTINUE TO MONITOR.
[2017-03-15 06:28] LABS: BASOPHILS % (AUTO) 0.3 % (0.0-2.0); EOSINOPHILS % (AUTO) 0.2 % (0.0-6.0); HEMATOCRIT 34 % (33-45); HEMOGLOBIN 11.2 g/dL (11.5-14.8); MEAN CORPUSCULAR HEMOGLOBIN 32 PG (26.0-33.0); MEAN CORPUSCULAR HGB CONC 33 g/dl (31.0-36.0); MEAN CORPUSCULAR VOLUME 94 fL (82-100); MONOCYTES # (AUTO) 0.4 /CMM (0.1-1.30); MONOCYTES % (AUTO) 11.3 % (2.0-12.0); NEUTROPHILS # (AUTO) 2.4 /CMM (1.8-8.9); NEUTROPHILS % (AUTO) 62.2 % (43.0-81.0); PLATELET COUNT (AUTO) 56 /CMM (150-450); RDW COEFFICIENT OF VARIATION 17.5 (11.5-15.0); RED BLOOD CELL COUNT(AUTO) 3.56 MIL/uL (4.0-5.2); WHITE BLOOD COUNT (AUTO) 3.8 K/uL (4.3-11.0)
--- NOTE | 2017-03-15 06:54 | NUR ---
RN NOTES PATIENT RESTING COMFORTABLY IN BED, NO SOB, RESPIRATION EVEN AND UNLABORED, NON-VERBAL, DOES NOT ENGAGE WHEN SPOKEN TO, NOT IN APPARENT PAIN, NO FACIAL GRIMACING, SLEPT FOR 5 HOURS INTERMITTENTLY, RECEIVED MAGNESIUM 20 MG IVP AND POTASSIUM 200 MG IVP, INFUSION TOLERATED WELL, NO BEHAVIOR DISTURBANCE, ONE ON ONE SITTER AT THE BEDSIDE.
[2017-03-15 06:59] LABS: CALCIUM, SERUM 8.1 mg/dL (8.5-10.1); CREATININE 0.7 mg/dL (0.6-1.3); MAGNESIUM 2.7 mg/dL (1.8-2.4); PHOSPHORUS 2.5 mg/dL (2.5-4.9); POTASSIUM 3.2 mmol/L (3.5-5.1)
--- NOTE | 2017-03-15 07:08 | NUR ---
RN NOTES NOTIFIED BY LAB SODIUM LEVEL 158, PT DX HYPERNATREMIA, SODIUM LEVEL TRENDING DOWN.
[2017-03-15] MEDS: PANTOPRAZOLE 40 MG TABLET.DR PO SCH (07:30)
--- NOTE | 2017-03-15 07:30 | NUR ---
RN INITIAL NOTES: Patient resting in bed. No signs of distress noted. Patient alert oriented x3. Non-labored breathing noted on room air. No facial grimaces. IV site patent and intact. Sitter at bedside. Bed in lowest position and is locked. Call light within reach. Central supply called for D5W , 1000ml. Will continue to monitor.
[2017-03-15 08:00] VITALS: BP 113/66
[2017-03-15] MEDS: VENLAFAXINE 37.5 MG TABLET PO SCH (08:34)
[2017-03-15] MEDS: BOOST PLUS FOOD-CHOCLATE 237 ML BOX PO SCH ×2 (08:34→16:43)
[2017-03-15] MEDS: BETHANECHOL CHLORIDE (25 MG) 25 MG TABLET PO SCH ×2 (08:35→16:43)
[2017-03-15 10:22] LABS: BAND % (MANUAL) 2 % (0.0-5.0); LYMPHOCYTES % (MANUAL) 24 % (16-48); MONOCYTES % (MANUAL) 8 % (0-11.0); NEUTROPHILS % (MANUAL) 66 (42-76)
[2017-03-15] MEDS: IV D5W 1,000 ML IV PRN (10:45)
[2017-03-15 15:40] LABS: APPEARANCE,URINE TURBID (CLEAR); BILIRUBIN,URINE 1+ (NEGATIVE); BLOOD, URINE 1+ Ery/uL (NEGATIVE); COLOR,URINE YELLOW (YELLOW); KETONES,URINE 1+ (NEGATIVE); LEUKOCYTE ESTERASE ,URINE 3+ (NEGATIVE); NITRITE, URINE POSITIVE (NEGATIVE); PH,URINE 5.5 (5.0-8.0); PROTEIN,URINE 1+ mg/dl (NEGATIVE); UGLUCOSE NEGATIVE (NEGATIVE)
[2017-03-15 15:52] LABS: CREATININE, URINE 132.3 MG/DL (30.0-125.0); URINE TOTAL PROTEIN 76.6 mg/dL (0-11.9)
[2017-03-15 15:59] LABS: BACTERIA,URINE 4+ /HPF (None Seen); SQUAMOUS EPITHELIAL CELL,UR 0-2 /HPF (None Seen); URIC ACID CRYSTALS,URINE Many /HPF (None Seen); WBC,URINE 21-50 /HPF (0-3)
[2017-03-15 16:00] VITALS: BP 103/52
[2017-03-15 17:46] LABS: EOSINOPHIL,URINE Rare
--- NOTE | 2017-03-15 18:47 | NUR ---
RN Notes: Dr. Balbuena aware of today's lab and urine results.
--- NOTE | 2017-03-15 19:00 | NUR ---
RN Closing Notes: Patient resting in bed. No signs of distress noted. Patient alert oriented x3. Non-labored breathing noted on room air. No facial grimaces. IV site patent and intact. Sitter at bedside. Bed in lowest position and is locked. Call light within reach. Patient helped to turn and reposition every 2 hours. Patient kept clean and dry. Endorsed to next shift.
--- NOTE | 2017-03-15 19:00 | NUR ---
MS RN OPENING NOTES RECEIVE PT RESTING IN BED, A/OX 1. NO S/S OF DISTRESS OR SOB. SAFETY MEASURES IN PLACE, ON LOW BED TO ENSURE SAFETY. CALL LIGHT WITHIN REACH. WILL CONTINUE TO MONITOR.
[2017-03-15 20:00] VITALS: BP 101/56
[2017-03-15] MEDS: Potassium Chloride 40 MEQ in IV D5W 1,000 ML IV PRN (20:36)
[2017-03-15] MEDS ORDERED: LEVOFLOXACIN 750 MG /D5W 150ML 150 ML IV ONE (20:39)
[2017-03-15] MEDS: LEVOFLOXACIN 750 MG /D5W 150ML 750 MG in PREMIX 1 EA IV SCH (20:45)
[2017-03-15] MEDS: MAGNESIUM OXIDE 400 MG TABLET PO SCH (21:37)
--- NOTE | 2017-03-16 06:32 | NUR ---
MS RN CLOSING NOTES PATIENT COMFORTABLY ASLEEP AND EASILY AWAKEN, HEAD OF BED ELEVATED FOR BETTER LUNG EXPANSION AND GOOD CIRCULATION. RESPIRATIONS EVEN AND UNLABORED, TOLERATING ROOM AIR 02 SAT 98% LT HAND 22 G PATENT AND INTACT WITH NO S/S OF INFILTRATION NOTED. APPEARS NOT IN DISTRESS. IN STABLE CONDITION, NO COMPLAINS OF PAIN AT THIS TIME. FREQUENT VISUAL CHECK DONE FOR SAFETY EVERY 2 HOURS. ASSIST PATIENT AND REMIND ABOUT IMPORTANCE OF REPOSITIONING EVERY 2 HOURS, NEED FUTHER INSTRUCTION, PT POOR CONCENTRATION. PATIENT REFUSED TO HAVE BRUISES TO BE MEASURED AND FOR ME TO DO BODY SKIN ASSESSMENT, SHE ALSO REFUSED TO HAVE PICTURES TO BE TAKEN DESPITE RISKS AND BENEFITS STILL REFUSING. NURSING CARE RENDERED, NEEDS ATTENDED AND ANTICIPATED, KEPT CLEAN AND DRY AND COMFORTABLE,GOOD SKIN CARE PROVIDED. OFFLOAD AT ALL TIMES. SAFE HAZARD FREE ENVIRONMENT PROVIDED. CALL LIGHT WITHIN EASY TO REACH, ON LOW BED AT ALL TIMES TO ENSURE SAFETY, WILL ENDORSE TO THE NEXT SHIFT CONTINUE PLAN OF CARE
[2017-03-16 06:36] LABS: BASOPHILS % (AUTO) 0.3 % (0.0-2.0); EOSINOPHILS % (AUTO) 0.3 % (0.0-6.0); HEMATOCRIT 34 % (33-45); HEMOGLOBIN 11.5 g/dL (11.5-14.8); MEAN CORPUSCULAR HEMOGLOBIN 32 PG (26.0-33.0); MEAN CORPUSCULAR HGB CONC 33 g/dl (31.0-36.0); MEAN CORPUSCULAR VOLUME 95 fL (82-100); MONOCYTES # (AUTO) 0.5 /CMM (0.1-1.30); MONOCYTES % (AUTO) 11.6 % (2.0-12.0); NEUTROPHILS # (AUTO) 2.5 /CMM (1.8-8.9); NEUTROPHILS % (AUTO) 62.8 % (43.0-81.0); PLATELET COUNT (AUTO) 53 /CMM (150-450); RDW COEFFICIENT OF VARIATION 18.4 (11.5-15.0); RED BLOOD CELL COUNT(AUTO) 3.62 MIL/uL (4.0-5.2)
[2017-03-16 07:05] LABS: CALCIUM, SERUM 8.1 mg/dL (8.5-10.1); CREATININE 0.5 mg/dL (0.6-1.3); POTASSIUM 3.3 mmol/L (3.5-5.1)
--- NOTE | 2017-03-16 07:15 | NUR ---
MS RN OPENING RECEIVED PATIENT A/OX2 REFUSING TO ANSWER VERBALLY AT THIS TIME. WILL NOD AT TIMES YES OR NO WHEN ASKED AGAIN. NO S/S DIFFICULTY BREATHING, SOB, OR PAIN. IVF RUNNING ORDERED. ALL NEEDS IN REACH, SITTER AT SIDE AND WILL ROUND Q2H OR LESS PER NEEDS
[2017-03-16] MEDS: PANTOPRAZOLE 40 MG TABLET.DR PO SCH (07:30)
[2017-03-16 08:00] VITALS: BP 115/68
[2017-03-16] MEDS: BOOST PLUS FOOD-CHOCLATE 237 ML BOX PO SCH ×2 (08:00→16:33)
--- NOTE | 2017-03-16 08:00 | NUR ---
MS RN NOTES PATIENT REFUSING ANY ORAL INTAKE FOOD, FLUIDS OR MEDICATIONS AT THIS TIME
[2017-03-16] MEDS: VENLAFAXINE 37.5 MG TABLET PO SCH (08:23)
[2017-03-16] MEDS: BETHANECHOL CHLORIDE (25 MG) 25 MG TABLET PO SCH ×2 (08:23→16:33)
[2017-03-16 08:47] LABS: BAND % (MANUAL) 2 % (0.0-5.0); LYMPHOCYTES % (MANUAL) 22 % (16-48); MONOCYTES % (MANUAL) 11 % (0-11.0); NEUTROPHILS % (MANUAL) 65 (42-76)
--- NOTE | 2017-03-16 08:55 | NUR ---
MS RN NOTES PATIENT CONTINUES TO REFUSE ALL PO MEDICATIONS. WILL NOT EVEN EAT ANY FOOD AT THIS TIME. SITTER AT SIDE. AT MOST PATIENT IS NODDING HER HEAD YES OR NO TO ME
[2017-03-16 09:00] LABS: URINE SODIUM, RANDOM 64 mmol/l (40-220)
--- NOTE | 2017-03-16 10:08 | NUR ---
MS RN NOTES NOTIFIED LIDIA MED RECON READY CAREER GUIDANCE COUNSELOR AWARE. PER LIDIA CONTINUE ABARCA CATH AND LIDIA AWARE LEVAQUIN ON BOARD WITH NOTED CIPRO ALLERGY
--- NOTE | 2017-03-16 10:45 | NUR ---
MS RN NOTES DR LYNCH AT BEDSIDE. NOTIFIED PATIENT STILL REFUSING ALL PO MEDICATIONS. PER MD HE WILL ORDER ZYPREXA AND IF PATIENT REFUSES PO MEDICATION ADMIN GIVE IM DOSE
--- NOTE | 2017-03-16 10:46 | NUR ---
MS RN NOTES PATIENT REFUSING PO INTAKE ZYPREXA ATTEMPTED TO ASK PATIENT ANY DRINK SHE WOULD LIKE, EXPLAINED USAGE AND IF PATIENT REFUSES NEED TO GIVE IM SHOT OF MEDICATION. PATIENT CONTINUING TO STATE SHE WILL NOT TAKE AND WILL MUMBLE INAUDIBLE NOISES AFTER
[2017-03-16] MEDS: OLANZAPINE 5 MG/TAB.RAPDIS PO SCH ×3 (11:00→16:38)
--- NOTE | 2017-03-16 11:10 | NUR ---
MS RN NOTES PATIENT REFUSING PO INTAKE VICKIREXShai ATTEMPTED TO ASK PATIENT ANY DRINK SHE WOULD LIKE, EXPLAINED USAGE AND IF PATIENT REFUSES NEED TO GIVE IM SHOT OF MEDICATION. PATIENT CONTINUING TO STATE SHE WILL NOT TAKE AND WILL MUMBLE INAUDIBLE NOISES AFTER. CALLED PHARMACY TO HAVE EYAD BROUGHT UP
[2017-03-16] MEDS ORDERED: POTASSIUM CHLORIDE 10 MEQ TABLET.SA PO ONE (11:30)
[2017-03-16 12:18] LABS: OSMOLALITY,URINE 540 mOS/kg (340-1090)
[2017-03-16] MEDS: OLANZAPINE 10 MG VIAL IM PRN ×2 (12:43→16:38)
[2017-03-16] MEDS: Potassium Phosphate meq 11 MEQ in IV D5W 100 ML IV SCH ×2 (12:44→16:38)
--- NOTE | 2017-03-16 14:17 | NUR ---
MS RN NOTES CALLING ASKING HOW TO START PROCESS OF DPOA PAPERWORK. MESSAGE TO GPS EDGE BRUSHER AND LEFT HUSBANDS # TO F/U ON HOW TO START THAT PROCESS
[2017-03-16 16:00] VITALS: BP 101/63
[2017-03-16] MEDS: Potassium Chloride 40 MEQ in IV D5W 1,000 ML IV PRN (16:42)
--- NOTE | 2017-03-16 17:17 | NUR ---
MS RN NOTES PATIENT AT BEDSIDE UPDATED ON CARE PLAN. PATIENT REFUSED PO ZYPREXA EVEN WITH PATIENT AT BEDSIDE. PER MD ORDER IM DOSE GIVEN
--- NOTE | 2017-03-16 18:33 | NUR ---
MS RN CLOSING PATIENT AT BEDSIDE. IVF RUNNING ORDERED, REPLACEMENTS GIVEN ORDERED. PATIENT ORDERED PATIENT GRILLED CHEESE FOR DINNER PATIENT STATES SHE WOULD EAT THIS. PATIENT STILL REFUSED TO EAT ANY FOOD OR DRINK ANY FLUIDS. PATIENT SITTER AT SIDE. PATIENT REFUSING TO BE OFFLOADED THROUGHOUT THE DAY BUT WAS REPOSITIONING SELF AT TIMES. PATIENT EDUCATED ON SKIN CARE AND HYGIENE BUT REFUSED BED BATH WITH MULTIPLE ATTEMPTS. AT BEDSIDE AND ATTEMPTED TO HELP WITH BED BATH AND PATIENT STILL REFUSING. CARE WILL BE ENDORSED TO RN FOR ADA.
[2017-03-16 20:00] VITALS: BP 102/48
--- NOTE | 2017-03-16 20:37 | NUR ---
MS RN INITIAL NOTE PT RECEIVED RESTING IN BED WITH AT BEDSIDE AND SITTER. A/O X 3 AND ABLE TO MAKE NEEDS KNOWN. PT REFUSING TO EAT OR DRINK ANYTHING AT THIS TIME. NO C/O PAIN OR DISCOMFORT. NO SOB. BREATHING IS REGULAR, EVEN AND UNLABORED. IV SITE IN PLACE, CLEAN AND FLUSHING WELL. ABARCA IN PLACE AND DRAINING BY GRAVITY. CALL LIGHT WITHIN REACH. WILL CONTINUE TO MONITOR.
[2017-03-16] MEDS: LEVOFLOXACIN 750 MG /D5W 150ML 750 MG in PREMIX 1 EA IV SCH (21:16)
[2017-03-16] MEDS: MAGNESIUM OXIDE 400 MG TABLET PO SCH (22:00)
[2017-03-17 06:40] LABS: BASOPHILS % (AUTO) 0.4 % (0.0-2.0); EOSINOPHILS # (AUTO) 0.1 /CMM (0.0-0.7); EOSINOPHILS % (AUTO) 1.3 % (0.0-6.0); HEMATOCRIT 35 % (33-45); HEMOGLOBIN 11.6 g/dL (11.5-14.8); LYMPHOCYTES # (AUTO) 1.2 /CMM (0.8-4.8); MEAN CORPUSCULAR HEMOGLOBIN 32 PG (26.0-33.0); MEAN CORPUSCULAR HGB CONC 34 g/dl (31.0-36.0); MEAN CORPUSCULAR VOLUME 95 fL (82-100); MONOCYTES # (AUTO) 0.4 /CMM (0.1-1.30); MONOCYTES % (AUTO) 10.5 % (2.0-12.0); NEUTROPHILS # (AUTO) 2.3 /CMM (1.8-8.9); NEUTROPHILS % (AUTO) 56.8 % (43.0-81.0); PLATELET COUNT (AUTO) 51 /CMM (150-450); RDW COEFFICIENT OF VARIATION 17.2 (11.5-15.0); RED BLOOD CELL COUNT(AUTO) 3.65 MIL/uL (4.0-5.2)
[2017-03-17] MEDS: PANTOPRAZOLE 40 MG TABLET.DR PO SCH (06:40)
[2017-03-17 06:47] LABS: CALCIUM, SERUM 7.9 mg/dL (8.5-10.1); CREATININE 0.6 mg/dL (0.6-1.3); MAGNESIUM 1.5 mg/dL (1.8-2.4); PHOSPHORUS 2.7 mg/dL (2.5-4.9)
--- NOTE | 2017-03-17 06:51 | NUR ---
MS RN CLOSING NOTE PT REMAINED STABLE DURING SHIFT. NO ACUTE DISTRESS NOTED. HAS 1:1 SITTER IN THE ROOM. PT REFUSED MEDICATIONS AND A BED BATH. EXPLAINED BENEFITS X3 AND PT STILL REFUSED. IV SITE IN PLACE.ABARCA CATHETER IN PLACE AND DRAINING BY GRAVITY. CALL LIGHT WITHIN REACH. ALL SAFETY MEASURES IN PLACE. WILL ENDORSE TO NEXT SHIFT FOR CONTINUITY OF CARE.
[2017-03-17 07:02] LABS: POTASSIUM 3.3 mmol/L (3.5-5.1)
[2017-03-17] MEDS: BOOST PLUS FOOD-CHOCLATE 237 ML BOX PO SCH ×2 (07:12→16:21)
--- NOTE | 2017-03-17 07:30 | NUR ---
MS RN OPENING RECEIVED PATIENT A/OX2 MORE VERBAL THIS AM. STILL REFUSING ANY PO MEDICATIONS OR FOOD/DRINK. PATIENT IVF RUNNING ORDERED AND ALL NEEDS IN REACH, SITTER AT SIDE AND PATIENT HAS NO S/S SOB, DIFFICULTY BREATHING OR PAIN. WILL ROUND Q2H OR LESS PER NEEDS. OFFERED PATIENT FOOD/DRINK THAT SOUNDS GOOD TO HER AND SHE CONTINUES TO SAY " NO WE CANNOT HAVE THAT HERE, WE ARE NOT ALLOWED TO DO THAT" EXPLAINED BUT PATIENT CONTINUES TO REPEAT
[2017-03-17 08:00] VITALS: BP 106/57
--- NOTE | 2017-03-17 08:00 | NUR ---
MS RN NOTES PATIENT REFUSING ALL PO MEDICATIONS OR FOOD/DRINK. WILL TRY AGAIN
[2017-03-17 08:26] LABS: BAND % (MANUAL) 5 % (0.0-5.0); EOSINOPHILS % (MANUAL) 1 % (0-4); LYMPHOCYTES % (MANUAL) 29 % (16-48); MONOCYTES % (MANUAL) 8 % (0-11.0); NEUTROPHILS % (MANUAL) 57 (42-76)
--- NOTE | 2017-03-17 08:45 | NUR ---
MS RN NOTES PATIENT CONTINUING TO REFUSE PO MEDICATIONS. EXPLAINED IF REFUSING IM INJECTION PER MD. PATIENT STILL REFUSING
[2017-03-17] MEDS: BETHANECHOL CHLORIDE (25 MG) 25 MG TABLET PO SCH ×2 (09:00→16:21)
[2017-03-17] MEDS: VENLAFAXINE 37.5 MG TABLET PO SCH (09:00)
[2017-03-17] MEDS: OLANZAPINE 5 MG/TAB.RAPDIS PO SCH ×4 (09:00→21:00)
--- NOTE | 2017-03-17 09:15 | NUR ---
MS RN NOTES CALLED PHARMACY TO NOTIFY WE ARE NEEDING MORE ZYPREXA. PATIENT STILL REFUSING PO
--- NOTE | 2017-03-17 09:57 | NUR ---
MS RN NOTES SPOKE WITH [facility] AND SHE STATED SHE WILL HAVE ZYPREXA BROUGHT UP FOR PATIENT.
[2017-03-17] MEDS: OLANZAPINE 10 MG VIAL IM PRN ×3 (10:55→22:00)
[2017-03-17] MEDS: Potassium Chloride 40 MEQ in IV D5W 1,000 ML IV PRN (11:00)
[2017-03-17 16:00] VITALS: BP 111/70
--- NOTE | 2017-03-17 18:11 | NUR ---
MS RN NOTES PATIENT CONTINUES TO REFUSE PO MEDICATIONS EVEN WITH AT BEDSIDE
--- NOTE | 2017-03-17 19:06 | NUR ---
MS RN CLOSING PATIENT STABLE AT THIS TIME. AT BEDSIDE AND WAS ABLE TO GET PATIENT TO HAVE A SPOON OF PUDDING AND JELLO. PATIENT UNWILLING TO TAKE ANY OTHER PO AT THIS TIME. ALL NEEDS IN REACH, BED LOWERED AND LOCKED RAILS UPX3 FOR SAFETY WITH BED ALARM ON. CARE ENDORSED TO RN FOR ADA
--- NOTE | 2017-03-17 19:20 | NUR ---
RN NOTES RECEIVED PATIENT AWAKE IN BED WITH AND SITTER AT BEDSIDE. NO SIGNS OF DISTRESS OR DISCOMFORT. BREATHING EVEN AND UNLABORED. IV ACCESS IN L HAND WITH [id number] W/D5W INFUSING, PATENT AND INTACT. NO SIGNS OF REDNESS OR INFILTRATION. F/C INTACT WITH CLEAR JESSICA FLUID NOTED. BED IN LOW LOCKED POSITION WITH SIDE RAILS X3. CALL LIGHT WITHIN REACH. WILL CONTINUE TO MONITOR.
[2017-03-17 20:00] VITALS: BP 96/73
[2017-03-17] MEDS: LEVOFLOXACIN 750 MG /D5W 150ML 750 MG in PREMIX 1 EA IV SCH (20:12)
[2017-03-17] MEDS: MAGNESIUM OXIDE 400 MG TABLET PO SCH (22:00)
--- NOTE | 2017-03-17 22:00 | NUR ---
RN NOTES PATIENT REFUSED ZYPREXA PO X3, PATIENT EDUCATION REINFORCED. ADMINISTERED ZYPREXA IM 2.5MG ORDERED. WILL CONTINUE TO MONITOR.
[2017-03-18] MEDS: Potassium Chloride 40 MEQ in IV D5W 1,000 ML IV PRN (02:29)
[2017-03-18 07:13] LABS: BASOPHILS % (AUTO) 0.5 % (0.0-2.0); EOSINOPHILS # (AUTO) 0.1 /CMM (0.0-0.7); EOSINOPHILS % (AUTO) 1.5 % (0.0-6.0); HEMATOCRIT 39 % (33-45); LYMPHOCYTES # (AUTO) 1.5 /CMM (0.8-4.8); MEAN CORPUSCULAR HEMOGLOBIN 32 PG (26.0-33.0); MEAN CORPUSCULAR HGB CONC 33 g/dl (31.0-36.0); MEAN CORPUSCULAR VOLUME 95 fL (82-100); MONOCYTES # (AUTO) 0.5 /CMM (0.1-1.30); MONOCYTES % (AUTO) 10.9 % (2.0-12.0); NEUTROPHILS # (AUTO) 2.6 /CMM (1.8-8.9); NEUTROPHILS % (AUTO) 55.1 % (43.0-81.0); PLATELET COUNT (AUTO) 55 /CMM (150-450); RDW COEFFICIENT OF VARIATION 17.9 (11.5-15.0); RED BLOOD CELL COUNT(AUTO) 4.11 MIL/uL (4.0-5.2); WHITE BLOOD COUNT (AUTO) 4.6 K/uL (4.3-11.0)
[2017-03-18] MEDS: PANTOPRAZOLE 40 MG TABLET.DR PO SCH (07:30)
[2017-03-18 07:36] LABS: CREATININE 0.7 mg/dL (0.6-1.3); MAGNESIUM 1.5 mg/dL (1.8-2.4); PHOSPHORUS 2.6 mg/dL (2.5-4.9); POTASSIUM 4.5 mmol/L (3.5-5.1)
--- NOTE | 2017-03-18 07:44 | NUR ---
RN CLOSING NOTES PATIENT AWAKE IN BED WITH SITTER AT BEDSIDE. NO SIGNS OF DISTRESS OR DISCOMFORT. BREATHING EVEN AND UNLABORED. IV ACCESS IN L HAND WITH [id number] W/D5W INFUSING, PATENT AND INTACT. NO SIGNS OF REDNESS OR INFILTRATION. F/C INTACT WITH CLEAR JESSICA FLUID NOTED. ALL NEEDS MET. NO SIGNIFICANT CHANGES THROUGH THE NIGHT. BED IN LOW LOCKED POSITION WITH SIDE RAILS X3. CALL LIGHT WITHIN REACH. ENDORSED TO AM SHIFT FOR ADA.
[2017-03-18 08:00] VITALS: BP 155/72
--- NOTE | 2017-03-18 08:10 | NUR ---
MS RN RECEIVED ON BED, SLEEPING, LETHARGIC W/ ONE ON ONE SITTER FOR SAFETY, PATIENT IS REFUSING CARE, MD AND FAMILY AWARE, NO DISTRESS NOTED, LUNGS ARE CLEAR, ABDOMEN SOFT, POSITIVE BOWEL SOUNDS, DENIES PAIN AT THIS TIME.WILL MONITOR PATIENT'S CONDITION.
[2017-03-18 08:57] LABS: LYMPHOCYTES % (MANUAL) 32 % (16-48); MONOCYTES % (MANUAL) 7 % (0-11.0); NEUTROPHILS % (MANUAL) 61 (42-76)
[2017-03-18] MEDS: OLANZAPINE 5 MG/TAB.RAPDIS PO SCH ×4 (09:00→21:00)
[2017-03-18] MEDS: VENLAFAXINE 37.5 MG TABLET PO SCH (09:00)
--- NOTE | 2017-03-18 09:20 | NUR ---
MS RN PATIENT REFUSED TO TAKE MEDS ,ZYPREXA AND AFFEXOR HELD DUE TO PATIENT IS VERY LETHARGIC.
[2017-03-18] MEDS: BETHANECHOL CHLORIDE (25 MG) 25 MG TABLET PO SCH ×2 (09:31→09:48)
[2017-03-18] MEDS: BOOST PLUS FOOD-CHOCLATE 237 ML BOX PO SCH ×2 (09:39→09:43)
--- NOTE | 2017-03-18 10:22 | NUR ---
MS RN WAS SEEN BY DR. RODRIGUEZ Garcia/ ORDERS MADE AND CARRIED OUT.
--- NOTE | 2017-03-18 10:29 | NUR ---
MS RN WAS SEEN BY DR. JONES, NO ORDER AT THIS TIME.
[2017-03-18] MEDS: Magnesium 1GM/D5W 100ML PREMIX 1 G in PREMIX 1 EA IV SCH ×4 (10:30→16:57)
[2017-03-18 16:00] VITALS: BP 117/58
--- NOTE | 2017-03-18 17:00 | NUR ---
MS RN ZYPREXA 2.5MG IM GIVEN. UNABLE TO SCAN MEDICATION.
[2017-03-18] MEDS ORDERED: ONDANSETRON HCL/PF 4 MG/2 ML VIAL ONE (18:43)
--- NOTE | 2017-03-18 19:30 | NUR ---
MS RN ENDORSED PT TO STATISTICS TUTOR. NO DISTRESS NOTED. NEW IV INSERTED AT RIGHT WRIST GAUGE 22. ALL NEEDS ATTENDED.
[2017-03-18] MEDS: LEVOFLOXACIN 750 MG /D5W 150ML 750 MG in PREMIX 1 EA IV SCH (19:55)
[2017-03-18 20:00] VITALS: BP 136/69
--- NOTE | 2017-03-18 20:26 | NUR ---
RN NOTES RECEIVED PT. AWAKE ON BED, A/OX3, AT BEDSIDE.. PT, REFUSED TO EAT BUT IS TALKING AND ENCOURAGING THE PATIENT TO EAT, IV FLUID D5W + 40 MEQ OF KCL @ 75 ML/HR, CALL LIGHT WITHIN REACH, SIDERAILS UPX2 CONTINUE TO MONITOR
--- NOTE | 2017-03-18 21:00 | NUR ---
RN NOTES OFFERED PT TO EAT BUT STILL REFUSING
[2017-03-18] MEDS: MAGNESIUM OXIDE 400 MG TABLET PO SCH (22:00)
[2017-03-18] MEDS ORDERED: OLANZAPINE 10 MG VIAL IM ONE (22:35)
[2017-03-18] MEDS: OLANZAPINE 10 MG VIAL IM PRN (22:55)
--- NOTE | 2017-03-18 23:11 | NUR ---
RN NOTES PT. REFUSED HER ZYPREXA 5MG PO , ZYPREXA 2.5 MG IM GIVEN PER MD'S ORDER EVERYTIME PT. REFUSED HER PO MEDICATION, V/S STABLE
[2017-03-19] MEDS: Potassium Chloride 40 MEQ in IV D5W 1,000 ML IV PRN ×2 (06:02→19:42)
--- NOTE | 2017-03-19 06:44 | NUR ---
RN NOTES AWAKE, STILL REFUSED TO EAT, MORNING CARE RENDERED, CALL LIGHT WITHIN REACH, SIDERAILS UPX2, PT NEEDS ATTENDED. ENDORSED TO DAYSHIFT NURSE FOR CONTINUITY OF CARE
--- NOTE | 2017-03-19 07:52 | NUR ---
MS RN OPENING NOTE PATIENT IS ALERT AND ORIENTED x3. RECEIVED PATIENT IN BED, LOCKED IN LOWEST POSITION WITH SIDERAILS UP. CALL LIGHT WITHIN REACH. SAFETY MEASURES IMPLEMENTED. IV INTACT AND PATENT, IV FLUIDS RUNNING AT THIS TIME, D5W +40 MEQ OF KCL RUNNING AT 75ML/HR. REGULAR DIET, REFUSED AM LABS THIS MORNING. WILL CONTINUE TO MONITOR PATIENT THROUGHOUT SHIFT
[2017-03-19 08:00] VITALS: BP 103/57
[2017-03-19] MEDS: PANTOPRAZOLE 40 MG TABLET.DR PO SCH (08:05)
[2017-03-19] MEDS: BETHANECHOL CHLORIDE (25 MG) 25 MG TABLET PO SCH ×2 (08:05→17:00)
[2017-03-19] MEDS: VENLAFAXINE 37.5 MG TABLET PO SCH (08:05)
[2017-03-19] MEDS: OLANZAPINE 5 MG/TAB.RAPDIS PO SCH ×4 (08:05→21:28)
[2017-03-19 08:29] LABS: BASOPHILS % (AUTO) 0.6 % (0.0-2.0); EOSINOPHILS # (AUTO) 0.1 /CMM (0.0-0.7); EOSINOPHILS % (AUTO) 1.4 % (0.0-6.0); HEMATOCRIT 39 % (33-45); HEMOGLOBIN 12.8 g/dL (11.5-14.8); LYMPHOCYTES # (AUTO) 1.2 /CMM (0.8-4.8); LYMPHOCYTES % (AUTO) 31.1 % (20.0-44.0); MEAN CORPUSCULAR HEMOGLOBIN 31 PG (26.0-33.0); MEAN CORPUSCULAR HGB CONC 33 g/dl (31.0-36.0); MEAN CORPUSCULAR VOLUME 95 fL (82-100); MONOCYTES # (AUTO) 0.4 /CMM (0.1-1.30); MONOCYTES % (AUTO) 10.6 % (2.0-12.0); NEUTROPHILS # (AUTO) 2.2 /CMM (1.8-8.9); NEUTROPHILS % (AUTO) 56.3 % (43.0-81.0); PLATELET COUNT (AUTO) 65 /CMM (150-450); RDW COEFFICIENT OF VARIATION 18.2 (11.5-15.0); RED BLOOD CELL COUNT(AUTO) 4.13 MIL/uL (4.0-5.2); WHITE BLOOD COUNT (AUTO) 3.8 K/uL (4.3-11.0)
[2017-03-19 08:42] LABS: CREATININE 0.7 mg/dL (0.6-1.3); MAGNESIUM 1.8 mg/dL (1.8-2.4); PHOSPHORUS 2.7 mg/dL (2.5-4.9)
--- NOTE | 2017-03-19 09:01 | NUR ---
MS RN NOTE PATIENT REFUSING TO EAT BREAKFAST, HAD A FEW SPOONFULS. DRANK 100% OF ORANGE JUICE. WILL ENCOURAGE TO EAT AND DRINK THROUGHOUT SHIFT
[2017-03-19 10:48] LABS: EOSINOPHILS % (MANUAL) 1 % (0-4); LYMPHOCYTES % (MANUAL) 10 % (16-48); MONOCYTES % (MANUAL) 7 % (0-11.0); NEUTROPHILS % (MANUAL) 82 (42-76)
[2017-03-19] MEDS: BOOST PLUS FOOD-CHOCLATE 237 ML BOX PO SCH ×2 (12:13→17:44)
--- NOTE | 2017-03-19 13:00 | NUR ---
MS RN NOTE PATIENT REFUSING LUNCH AT THIS TIME. WILL CONTINUE TO ENCOURAGE PO INTAKE
--- NOTE | 2017-03-19 13:30 | NUR ---
MS RN NOTE ATTEMPTED TO INSERT NG TUBE PER MD. PATIENT BECAME AGITATED AND BEGAN TO PULL NG TUBE OUT. INFORMED MD.
[2017-03-19 16:01] VITALS: BP 166/63
--- NOTE | 2017-03-19 18:24 | NUR ---
MS RN CLOSING NOTE PATIENT IS ALERT AND ORIENTED x2-3. NO PAIN NOTED AT THIS TIME. NO SOB OR DISTRESS NOTED. IV INTACT AND PATENT NO REDNESS OR SWELLING NOTED. CALL LIGHT WITHIN REACH AT ALL TIMES. SAFETY MEASURES IMPLEMENTED. ABARCA CATHETER IN PLACE, NO SEDIMENT NOTED. JESSICA IN COLOR, 350-URINE OUTPUT. ALL DUE MEDICATIONS GIVEN ORDERED. REGULAR DIET, ENCOURAGING TO EAT MEALS THROUGHOUT SHIFT AND HAS BOOST SUPPLEMENT AT BEDSIDE THAT IS ENCOURAGED WELL. HAS MORNING LABS TOMORROW 03/20/17. WILL ENDORSE TO DATA WAREHOUSE SPECIALIST FOR ADA
--- NOTE | 2017-03-19 19:03 | NUR ---
MS RN NOTE SPOKE WITH JARETT BOWSER, EXPLAINED TO ABOUT HIS 'S CONDITION. POOR PO INTAKE ALTHOUGH ENCOURAGING THROUGHOUT SHIFT TO EAT AND DRINK FLUIDS DESPITE IV FLUIDS THAT ARE RUNNING AT THIS TIME. SITTER AND GROUP DIRECTOR PRESENT WHEN CONVERSATION WAS HAPPENING. EXPLAINED TO THAT PATIENT POSSIBLY MIGHT NEED NASOGASTRIC TUBE OR GASTROTOMY TUBE TO BE PLACED IF SHE CONTINUES TO NOT EAT. UNDERSTANDS THAT IF PATIENT CONTINUES TO REFUSE EATING THAT IT WILL BECOME NECESSARY. PLAN OF CARE FOR PATIENT DISCUSSED WITH MD, PSYCH MD AND . WILL ENDORSE TO THERMOCOUPLE TESTER NURSE FOR ADA
--- NOTE | 2017-03-19 19:30 | NUR ---
RN NOTES RECEIVED PT SLEEPING BUT AROUSABLE, AT BEDSIDE, IV FLUID RUNNING D5W + 40MEQ OF KCL @ 75ML/HR, F/C DRAINING CLEAR YELLOW URINE, NO PAIN NOTED, NO SOB, CALL LIGHT WITHIN REACH, SIDERAILS UPX2 CONTINUE TO MONITOR
[2017-03-19] MEDS: LEVOFLOXACIN 750 MG /D5W 150ML 750 MG in PREMIX 1 EA IV SCH (19:42)
[2017-03-19 20:00] VITALS: BP 94/62
--- NOTE | 2017-03-19 21:00 | NUR ---
RN NOTES PT. TOOK HER MEDICATION WITH PUDDING, PT TOLERATED FAIRLY
[2017-03-19] MEDS: MAGNESIUM OXIDE 400 MG TABLET PO SCH (21:28)
[2017-03-20 06:04] LABS: CALCIUM, SERUM 8.3 mg/dL (8.5-10.1); CREATININE 0.7 mg/dL (0.6-1.3); MAGNESIUM 1.8 mg/dL (1.8-2.4); PHOSPHORUS 2.8 mg/dL (2.5-4.9); POTASSIUM 5.1 mmol/L (3.5-5.1)
--- NOTE | 2017-03-20 06:21 | NUR ---
RN NOTES SLEEPING BUT AROUSABLE, MORNING CARE RENDERED, IV FLUID RUNNING , IV LIS IS PATENT NO REDNESS OR SWOLLEN, , NO SOB,PT. NEEDS ATTENDED. ENDORSED TO DAYSHIFT NURSE FOR CONTINUITY OF CARE
--- NOTE | 2017-03-20 07:12 | NUR ---
MS RN OPENING NOTES PATIENT RECEIVED ASLEEP IN BED, AROUSES EASILY. SITTER AT BEDSIDE. ALERT AND ORIENTED, SAME VERBALLY RESPONSIVE. ON ROOM AIR, BREATHING EVEN AND UNLABORED. IV ACCESS ON RIGHT WRIST INTACT AND PATENT, IV FLUIDS OF D5W +40 MEQ OF KCL RUNNING AT 75ML/HR. BED LOCKED AND IN LOWEST POSITION WITH SIDE-RAILS UP. CALL LIGHT WITHIN REACH. SAFETY MEASURES MAINTAINED. WILL CONTINUE TO MONITOR PATIENT ACCORDINGLY.
[2017-03-20 08:00] VITALS: BP 128/62
[2017-03-20] MEDS: VENLAFAXINE 37.5 MG TABLET PO SCH (08:05)
[2017-03-20] MEDS: OLANZAPINE 5 MG/TAB.RAPDIS PO SCH ×4 (08:05→20:48)
[2017-03-20] MEDS: PANTOPRAZOLE 40 MG TABLET.DR PO SCH (08:05)
[2017-03-20] MEDS: BOOST PLUS FOOD-CHOCLATE 237 ML BOX PO SCH ×2 (08:05→17:27)
[2017-03-20] MEDS: BETHANECHOL CHLORIDE (25 MG) 25 MG TABLET PO SCH ×2 (08:05→17:26)
--- NOTE | 2017-03-20 10:45 | NUR ---
RN NOTES PATIENT SEEN BY DR LYNCH AND ORDERED TO INCREASE ZYPREXA 2.5MG IM TO 5MG IM IF PT WILL NOT TAKE P.O. ZYPREXA. WILL CONTINUE TO MONITOR.
[2017-03-20] MEDS: Potassium Chloride 40 MEQ in IV D5W 1,000 ML IV PRN (11:15)
[2017-03-20 16:00] VITALS: BP 104/68
--- NOTE | 2017-03-20 19:06 | NUR ---
MS RN CLOSING NOTES PATIENT ASLEEP IN BED WITH FAMILY AT BEDSIDE. SITTER AT BEDSIDE. ALERT AND ORIENTED X2. ALL NEEDS AND CARE PROVIDED WELL. ON ROOM AIR, BREATHING EVEN AND UNLABORED. IV ACCESS ON RIGHT WRIST INTACT AND PATENT WITH IVF OF D5W +40 MEQ OF KCL RUNNING AT 75ML/HR. ABARCA IN PLACED WITH 375ML OF CLEAR YELLOW URINE OUTPUT THIS TOUR. BED LOCKED AND IN LOWEST POSITION WITH SIDE-RAILS UP. CALL LIGHT WITHIN REACH. SAFETY MEASURES MAINTAINED. WILL ENDORSED TO PRODUCT SAFETY COMPLIANCE LEADER NURSE FOR ADA..
--- NOTE | 2017-03-20 19:30 | NUR ---
MS RN NOTES RECEIVED ON BED WITH HOB ELEVATED,MOANING ON AND OFF,FAMILY MEMBERS AT BEDSIDE.IVF INFUSING ON RIGHT FOREARM,INFILTRATED.IV STOP.WILL PUT NEW IV ACCESS.WITH ABARCA CATH IN PLACE DRAINING YELLOWISH OUTPUT.SITTER AT BEDSIDE FOR SAFETY ,ON 30 DAYS HOLD.CALL LIGHT IN REACH,NEEDS ANTICIPATED.
[2017-03-20 20:11] VITALS: BP 141/84
[2017-03-20] MEDS: NITROFURANTOIN/NITROFURAN MAC 100 MG CAPSULE PO SCH (20:47)
--- NOTE | 2017-03-20 20:49 | NUR ---
MS RN NOTES PAIN MANAGEMENT NOTED RUBBING HER RIGHT ARM,MOANS,MEDICATED WITH NORCO 5/326MG,1 TAB PO ORDERED FOR MODERATE PAIN SCALE OF 7/10.
--- NOTE | 2017-03-20 21:00 | NUR ---
MS RN NOTES IV SITE INFILTRATED, RIGHT ARM SWOLLEN.NEW IV ACCESS PLACE ON LEFT HAND #22,SAME IVF INFUSING AT THIS TIME.
--- NOTE | 2017-03-20 21:52 | NUR ---
MS RN NOTES VOMITED MOSTLY LIQUID,ZOFRAN 4MG IV GIVEN ORDERED FOR N/V
[2017-03-20] MEDS: MAGNESIUM OXIDE 400 MG TABLET PO SCH (22:00)
--- NOTE | 2017-03-21 02:00 | NUR ---
MS RN NOTES SOUND ASLEEP,SITTER AT BEDSIDE.
[2017-03-21 06:00] VITALS: BP 107/71
--- NOTE | 2017-03-21 06:44 | NUR ---
MS RN NOTES RIGHT ARM SWOLLEN WITH REDNESS NOTED SINCE THE BEGINNING OF THE SHIFT,ELEVATED ON PILLOWS.IVF FLUIDS INFUSING,SITE REMAINS PATENT,SECURED WITH BROWN SLEEVE.SITTER AT BEDSIDE.MORNING CARE RENDERED.IN NO ACUTE DISTRESS.WILL CONTINUE TO MONITOR STATUS.WILL ENDORSE TO DAY NURSE FOR ADA.
[2017-03-21 06:55] LABS: BASOPHILS % (AUTO) 0.2 % (0.0-2.0); EOSINOPHILS % (AUTO) 0.7 % (0.0-6.0); HEMATOCRIT 38 % (33-45); HEMOGLOBIN 12.5 g/dL (11.5-14.8); LYMPHOCYTES # (AUTO) 1.4 /CMM (0.8-4.8); LYMPHOCYTES % (AUTO) 20.5 % (20.0-44.0); MEAN CORPUSCULAR HEMOGLOBIN 31 PG (26.0-33.0); MEAN CORPUSCULAR HGB CONC 33 g/dl (31.0-36.0); MEAN CORPUSCULAR VOLUME 95 fL (82-100); MONOCYTES # (AUTO) 0.6 /CMM (0.1-1.30); MONOCYTES % (AUTO) 8.3 % (2.0-12.0); NEUTROPHILS # (AUTO) 4.7 /CMM (1.8-8.9); NEUTROPHILS % (AUTO) 70.3 % (43.0-81.0); PLATELET COUNT (AUTO) 79 /CMM (150-450); RDW COEFFICIENT OF VARIATION 18.1 (11.5-15.0); RED BLOOD CELL COUNT(AUTO) 3.99 MIL/uL (4.0-5.2); WHITE BLOOD COUNT (AUTO) 6.7 K/uL (4.3-11.0)
[2017-03-21 07:23] LABS: CALCIUM, SERUM 8.5 mg/dL (8.5-10.1); CREATININE 0.7 mg/dL (0.6-1.3); PHOSPHORUS 3.3 mg/dL (2.5-4.9); POTASSIUM 4.9 mmol/L (3.5-5.1)
--- NOTE | 2017-03-21 07:37 | NUR ---
RN MS NOTES PATIENT IN BED, MOANING ON AND OFF, BREATHING EVEN AND UNLABORED, NO S/SX OF DISTRESS NOTED, SITTER AT BEDSIDE, PIV ON LEFT HAND PATENT AND FLUSHES, IVF INFUSING AND TOLERATING WELL, RIGHT ARM ELEVATED D/T EDEMA, NEEDS ATTENDED AND ANTICIPATED, SAFETY MEASURES IN PLACED, CALL LIGHT WITHIN REACH, WILL CONTINUE TO MONITOR.
[2017-03-21 08:00] VITALS: BP 93/67
[2017-03-21] MEDS: VENLAFAXINE 37.5 MG TABLET PO SCH (08:17)
[2017-03-21] MEDS: OLANZAPINE 5 MG/TAB.RAPDIS PO SCH ×4 (08:17→20:53)
[2017-03-21] MEDS: PANTOPRAZOLE 40 MG TABLET.DR PO SCH (08:17)
[2017-03-21] MEDS: BETHANECHOL CHLORIDE (25 MG) 25 MG TABLET PO SCH ×2 (08:17→17:07)
[2017-03-21] MEDS: NITROFURANTOIN/NITROFURAN MAC 100 MG CAPSULE PO SCH ×2 (08:17→20:53)
[2017-03-21] MEDS: BOOST PLUS FOOD-CHOCLATE 237 ML BOX PO SCH ×2 (08:27→17:07)
[2017-03-21 09:56] LABS: EOSINOPHILS % (MANUAL) 1 % (0-4); LYMPHOCYTES % (MANUAL) 19 % (16-48); MONOCYTES % (MANUAL) 4 % (0-11.0); NEUTROPHILS % (MANUAL) 76 (42-76)
[2017-03-21] MEDS: Potassium Chloride 40 MEQ in IV D5W 1,000 ML IV PRN (10:46)
[2017-03-21] MEDS: OLANZAPINE 10 MG VIAL IM PRN (13:10)
--- NOTE | 2017-03-21 13:14 | NUR ---
RN MS NOTES PATIENT SPIT OUT ZYPREXA PO, SEEN BY DR. VENTURA AND PATIENT HAS BEEN MOANING AND RESTLESS CONTINUOUSLY, PER MD, OK TO GIVE ZYPREXA IM PRN FOR RESTLESSNESS. PATIENT'S VITAL SIGNS WNL, NO S/SX OF DISTRESS, REFUSED BREAKFAST AND LUNCH MEALS. WILL CONTINUE TO MONITOR.
[2017-03-21 16:00] VITALS: BP 98/61
--- NOTE | 2017-03-21 18:43 | NUR ---
RN MS NOTES PATIENT ALERT, STILL MOANING NOTED WITH RESTLESSNESS AT TIMES, ALL DUE MEDICATIONS PROVIDED, PATIENT HAS SPIT OUT SOME MEDICATIONS, REFUSED ALL MEALS, EXPLAINED RISKS AND BENEFITS, GAVE A LOT OF ENCOURAGEMENT, SPOUSE CALLED A FEW TIMES AND SPOKE WITH THE PATIENT TRYING TO ENCOURAGE HER TO TAKE HER MEDS AND EAT, PIV PATENT AND FLUSHES WELL, IVF INFUSING CONTINUOUSLY, ABARCA CATH WITH URINE OUTPUT OF 1200, SITTER AT BEDSIDE, SAFETY MEASURES IN PLACED, CALL LIGHT WITHIN REACH, WILL ENDORSE TO MATTRESS AND BOXSPRINGS SUPERVISOR FOR CONTINUITY OF CARE.
--- NOTE | 2017-03-21 19:29 | NUR ---
MS RN NOTES ON BED A/O X 2-3,STILL MOANING,REFUSED TO EAT PER REPORT.SITTER AT BEDSIDE FOR 30 DAYS HOLD DUE TO MAJOR DEPRESSION.PRESENT IVF D5W WITH 40MEQ KCL AT 75ML/HR RATE VIA IV PUMP.SITE PATENT ON LEFT HAND #[id number].WILL CONTINUE TO MONITOR STATUS.
[2017-03-21 20:00] VITALS: BP 109/69
[2017-03-21 20:01] VITALS: BP 109/69
[2017-03-21] MEDS: MAGNESIUM OXIDE 400 MG TABLET PO SCH (20:53)
--- NOTE | 2017-03-21 21:15 | NUR ---
MS RN NOTES DUE MEDS CRUSHED ADMINISTERED VIA SYRINGE ORALLY,TAKEN WELL.
[2017-03-22] MEDS: Potassium Chloride 40 MEQ in IV D5W 1,000 ML IV PRN ×2 (00:16→18:18)
--- NOTE | 2017-03-22 01:00 | NUR ---
MS RN NOTES SLEEPING AT THIS TIME,SITTER AT BEDSIDE.
--- NOTE | 2017-03-22 06:08 | NUR ---
MS RN NOTES REFUSED MORNING LAB DRAW
--- NOTE | 2017-03-22 06:37 | NUR ---
MS RN NOTES NO SIGNIFICANT CHANGE IN STATUS,ABLE TO SLEPT WITH ZYPREXA.IN NO ACUTE DISTRESS.WILL ENDORSE TO DAY NURSE FOR ADA.
[2017-03-22 08:00] VITALS: BP 123/57
[2017-03-22] MEDS: BOOST PLUS FOOD-CHOCLATE 237 ML BOX PO SCH ×2 (08:00→16:38)
--- NOTE | 2017-03-22 08:00 | NUR ---
MS RN OPENING NOTE PATIENT IS ALERT AND ORIENTED x2-3. NO PAIN NOTED AT THIS TIME. NO SOB OR DISTRESS NOTED. CALL LIGHT WITHIN REACH. SAFETY MEASURES IMPLEMENTED. IV INTACT AND PATENT ON LEFT HAND, IV FLUIDS RUNNING AT THIS TIME AT 75ML/HR. TOLERATING WELL. POSSIBLE DISCHARGE TO SNF, WILL FOLLOW UP WITH CASE MANAGEMENT. ABARCA CATHETER IN PLACE, JESSICA IN COLOR, MD AWARE. WILL CONTINUE TO MONITOR THROUGHOUT SHIFT
[2017-03-22] MEDS: OLANZAPINE 5 MG/TAB.RAPDIS PO SCH ×5 (08:22→21:00)
[2017-03-22] MEDS: NITROFURANTOIN/NITROFURAN MAC 100 MG CAPSULE PO SCH ×2 (08:22→21:00)
[2017-03-22] MEDS: PANTOPRAZOLE 40 MG TABLET.DR PO SCH (08:22)
[2017-03-22] MEDS: VENLAFAXINE 37.5 MG TABLET PO SCH (08:22)
[2017-03-22] MEDS: BETHANECHOL CHLORIDE (25 MG) 25 MG TABLET PO SCH ×2 (08:22→16:37)
--- NOTE | 2017-03-22 09:38 | NUR ---
MS RN NOTE INFORMED DR. LORENZO WELSH THAT PATIENT IS TRYING TO PULL ON IV LINE AND ABARCA CATHETER TUBING. ATTEMPTED SEVERAL TIMES TO PUT ON SOFT MITTENS BUT PATIENT KEPT TAKING THEM OUT AND WENT BACK TO PULL ON LINES. PATIENT HAS SOFT RESTRAINTS NEEDED WHEN SITTER ISN'T AVAILABLE. WILL MONITOR Q15 MINS FOR FOOD, WATER, AND REPOSITIONING.
[2017-03-22] MEDS: OLANZAPINE 10 MG VIAL IM PRN ×3 (10:13→16:53)
[2017-03-22 13:09] LABS: RENIN, PLASMA 1.544 ng/mL/hr (0.167-5.380)
--- NOTE | 2017-03-22 14:47 | NUR ---
MS RN NOTE PATIENT REFUSED LABS THIS MORNING AND THIS AFTERNOON. EXPLAINED THE NEED FOR LABS, PATIENT STILL REFUSED. AWARE
[2017-03-22 16:00] VITALS: BP 137/67
--- NOTE | 2017-03-22 18:43 | NUR ---
MS RN CLOSING NOTE PATIENT IS ALERT AND ORIENTED x2-3. NO PAIN AT THIS TIME. NO SOB OR DISTRESS NOTED. CALL LIGHT WITHIN REACH AT ALL TIMES. SAFETY MEASURES IMPLEMENTED. SOFT BILATERAL RESTRAINTS IN PLACE, OFFERED FOOD AND WATER, REPOSITIONED NEEDED. IV INTACT AND PATENT NO REDNESS OR SWELLING NOTED. IVF RUNNING AT 75 ML/HR. PATIENT IS REFUSING MEDICATIONS MULTIPLE TIMES AND REFUSING TO EAT OR DRINK THROUGHOUT SHIFT. PER MD, TO OBTAIN INFORMED CONSENT FOR NG-TUBE INSERTION AND FEEDING. OBTAINED CONSENT BY JARETT BOWSER, UNDERSTANDS RISKS AND BENEFITS FOR NGT INSERTION. REFUSED LABS THIS MORNING 3X. WILL ENDORSE TO RELEASE MANAGER NURSE FOR ADA
--- NOTE | 2017-03-22 19:08 | NUR ---
MS RN NOTE ATTEMPTED TO INSERT NASOGASTRIC TUBE. PATIENT BECAME AGITATED AND BEGAN TO PULL ON TUBING AND REMOVED IT AFTER INSERTION. AWARE. WILL INFORM [facility]
--- NOTE | 2017-03-22 19:30 | NUR ---
MS RN OPENING NOTE PATIENT IS ALERT AND ORIENTED x2-3. NO PAIN NOTED AT THIS TIME. NO SOB OR DISTRESS NOTED. CALL LIGHT WITHIN REACH. SAFETY MEASURES IMPLEMENTED. IV INTACT AND PATENT ON LEFT HAND, IV FLUIDS RUNNING AT THIS TIME AT 75ML/HR. TOLERATING WELL. ABARCA CATHETER IN PLACE, JESSICA IN COLOR, MD AWARE. SITTER AT BEDSIDE. WILL CONTINUE TO MONITOR THROUGHOUT SHIFT
[2017-03-22 20:00] VITALS: BP 97/53
--- NOTE | 2017-03-22 21:44 | NUR ---
MS RN NOTE PATIENT WAS ASLEEP. WOKE PATIENT UP TO TAKE PO MEDICATION. PATIENT REFUSING. ATTEMPTED SEVERAL TIMES. BLOOD PRESSURE 95/53. INFORMED DR. BARBOSA. SHE SAID OKAY TO HOLD ZYPREXA INJECTION AT THIS TIME. SITTER AT BEDSIDE. WILL CONTINUE TO MONITOR.
[2017-03-22 22:00] VITALS: BP 95/53
[2017-03-22] MEDS: MAGNESIUM OXIDE 400 MG TABLET PO SCH (22:00)
--- NOTE | 2017-03-22 22:00 | NUR ---
MS LAZO NOTE ATTEMPTED TO PLACE NG-TUBE. PATIENT UNCOOPERATIVE. NOSE BLED. WILL TRY AGAIN LATER. Addendum: 03/23/17 at 0223 by PRISCA CHEN RN TIME WAS 2300
[2017-03-23 06:35] LABS: BASOPHILS % (AUTO) 0.6 % (0.0-2.0); EOSINOPHILS # (AUTO) 0.1 /CMM (0.0-0.7); EOSINOPHILS % (AUTO) 1.8 % (0.0-6.0); HEMATOCRIT 36 % (33-45); HEMOGLOBIN 11.9 g/dL (11.5-14.8); LYMPHOCYTES # (AUTO) 1.6 /CMM (0.8-4.8); LYMPHOCYTES % (AUTO) 33.1 % (20.0-44.0); MEAN CORPUSCULAR HEMOGLOBIN 31 PG (26.0-33.0); MEAN CORPUSCULAR HGB CONC 33 g/dl (31.0-36.0); MEAN CORPUSCULAR VOLUME 96 fL (82-100); MONOCYTES # (AUTO) 0.5 /CMM (0.1-1.30); MONOCYTES % (AUTO) 11.5 % (2.0-12.0); NEUTROPHILS # (AUTO) 2.5 /CMM (1.8-8.9); PLATELET COUNT (AUTO) 86 /CMM (150-450); RDW COEFFICIENT OF VARIATION 17.8 (11.5-15.0); WHITE BLOOD COUNT (AUTO) 4.7 K/uL (4.3-11.0)
--- NOTE | 2017-03-23 06:52 | NUR ---
MS RN NOTE PATIENT CONTINUES NOT TO EAT. FLUIDS RUNNING ORDERED. SITTER AT BEDSIDE. WILL ENDORSE TO DAY SHIFT FOR ADA.
[2017-03-23 06:55] LABS: CALCIUM, SERUM 8.5 mg/dL (8.5-10.1); CREATININE 0.6 mg/dL (0.6-1.3); MAGNESIUM 1.7 mg/dL (1.8-2.4); PHOSPHORUS 3.7 mg/dL (2.5-4.9); POTASSIUM 4.4 mmol/L (3.5-5.1)
--- NOTE | 2017-03-23 07:18 | NUR ---
RN OPEN NOTES RECEIVED REPORT FROM TELEVISION MAINTENANCE WORKER NURSE. WILL CONTINUE TO MONITOR AND ASSESS PATIENT THROUGH OUT MY SHIFT
[2017-03-23] MEDS: PANTOPRAZOLE 40 MG TABLET.DR PO SCH (07:30)
[2017-03-23 08:00] VITALS: BP 110/52
[2017-03-23] MEDS: NITROFURANTOIN/NITROFURAN MAC 100 MG CAPSULE PO SCH ×2 (09:00→21:00)
[2017-03-23] MEDS: OLANZAPINE 5 MG/TAB.RAPDIS PO SCH ×4 (09:00→21:00)
[2017-03-23] MEDS: BETHANECHOL CHLORIDE (25 MG) 25 MG TABLET PO SCH ×2 (09:00→16:37)
[2017-03-23] MEDS: VENLAFAXINE 37.5 MG TABLET PO SCH (09:00)
[2017-03-23] MEDS: BOOST PLUS FOOD-CHOCLATE 237 ML BOX PO SCH ×2 (09:18→16:37)
[2017-03-23 10:00] LABS: BAND % (MANUAL) 3 % (0.0-5.0); EOSINOPHILS % (MANUAL) 3 % (0-4); LYMPHOCYTES % (MANUAL) 33 % (16-48); MONOCYTES % (MANUAL) 9 % (0-11.0); NEUTROPHILS % (MANUAL) 52 (42-76)
--- NOTE | 2017-03-23 10:15 | NUR ---
DR LYNCH AT BEDSIDE
[2017-03-23] MEDS: OLANZAPINE 10 MG VIAL IM PRN ×4 (10:56→23:33)
--- NOTE | 2017-03-23 13:35 | NUR ---
DR VENTURA AT BEDSIDE
[2017-03-23] MEDS ORDERED: Magnesium 1GM/D5W 100ML PREMIX PIGGYBACK IV ONE (14:30)
[2017-03-23] MEDS: Magnesium 1GM/D5W 100ML PREMIX 100 ML IV SCH ×2 (14:52→15:58)
[2017-03-23 16:00] VITALS: BP 113/67
--- NOTE | 2017-03-23 18:45 | NUR ---
PATIENT REFUSED ALL HER PO MEDS, REFUSED FOOD AND WATER. ZYPREXA WAS GIVEN INTRAMUSCULAR ORDERED.
--- NOTE | 2017-03-23 19:19 | NUR ---
RN CLOSING NOTES ENDORSED TO OIL SPOT WASHER NURSE FOR ADA. PATIENT IS IN BED, ALERT AND ORIENTED TO SELF ONLY. 1:1 SITTER AT BEDSIDE FOR SAFETY. IV SITE IS PATENT AND INTACT, CURRENTLY RUNNING FLUID AT 75ML/HR. ALL NURSING CARE PROVIDED. PATIENT KEPT CLEAN AND DRY. BED IN LOW POSITION, LOCKED AND TWO SIDE RAILS ARE UP. CALL LIGHT IS WITHIN REACH. NO SIGNS AND SYMPTOMS OF DISTRESS. DENIED PAIN.
--- NOTE | 2017-03-23 19:30 | NUR ---
MS RN NOTE RECEIVED PATIENT AWAKE IN BED. NO DISTRESS NOTED. VS STABLE. NOT TALKING. IV SITE INTACT, WITH FLUIDS RUNNING ORDERED. SITTER AT BEDSIDE. PATIENT CONTINUES TO REFUSE AND PO INTAKE. MD AWARE. BED LOCKED AND IN LOWEST POSITION. SIDE RAILS UP, CALL LIGHT WITHIN REACH. WILL CONTINUE TO MONITOR.
[2017-03-23 20:00] VITALS: BP 103/57
[2017-03-23] MEDS: ENOXAPARIN SODIUM 30 MG/0.3 ML DISP.SYRIN SQ SCH (21:30)
[2017-03-23] MEDS: MAGNESIUM OXIDE 400 MG TABLET PO SCH (22:00)
[2017-03-23] MEDS ORDERED: OLANZAPINE 10 MG VIAL IM ONE (23:25)
[2017-03-23] MEDS: Potassium Chloride 40 MEQ in IV D5W 1,000 ML IV PRN (23:33)
--- NOTE | 2017-03-24 06:17 | NUR ---
MS RN NOTE PATIENT STABLE. NO DISTRESS NOTED. SITTER AT BEDSIDE. FLUIDS RUNNING ORDERED. WILL ENDORSE TO DAY SHIFT FOR ADA.
--- NOTE | 2017-03-24 07:20 | NUR ---
RN NOTES PT IS IN BED, RESTING WITH NO SIGNS OF DISTRESS WITH SITTER AT BEDSIDE. PT ON RA, RESPIRATIONS ARE EVEN AND UNLABORED. IV ON LEFT HAND INTACT, RUNNING D5W + 40MEQ KCL @ 75ML/HR. SAFETY MEASURES ARE IN PLACE, CALL LIGHT IS IN REACH. WILL CONTINUE TO MONITOR,
[2017-03-24 08:00] VITALS: BP 125/65
[2017-03-24] MEDS: BOOST PLUS FOOD-CHOCLATE 237 ML BOX PO SCH ×2 (08:33→16:24)
[2017-03-24] MEDS: BETHANECHOL CHLORIDE (25 MG) 25 MG TABLET PO SCH ×2 (08:41→17:12)
[2017-03-24] MEDS: NITROFURANTOIN/NITROFURAN MAC 100 MG CAPSULE PO SCH ×2 (08:41→21:11)
[2017-03-24] MEDS: PANTOPRAZOLE 40 MG TABLET.DR PO SCH (08:42)
[2017-03-24] MEDS: VENLAFAXINE 37.5 MG TABLET PO SCH (08:42)
[2017-03-24] MEDS: OLANZAPINE 5 MG/TAB.RAPDIS PO SCH ×4 (08:42→21:11)
[2017-03-24] MEDS: OLANZAPINE 10 MG VIAL IM PRN ×2 (12:51→17:36)
[2017-03-24] MEDS: Potassium Chloride 40 MEQ in IV D5W 1,000 ML IV PRN (12:51)
--- NOTE | 2017-03-24 13:00 | NUR ---
RN NOTES DR. LYNCH SPOKE WITH DR. SABILLON ABOUT PEG PLACEMENT BECAUSE PT HASNT EATEN IN [address]. [address] PETTIT THAT THE IS WILLING TO CONSENT FOR , BUT WANTS TO WAIT UNTIL AFTER THE AUNT COMES TO VISIT HER TOMORROW TO SEE IF SHE CAN GET HER TO EAT. DR. PETTIT CALLED GI AND IS SUSPECTING THAT THE PEG CAN BE PLACED TOMORROW.
[2017-03-24 16:00] VITALS: BP 127/68
--- NOTE | 2017-03-24 19:22 | NUR ---
RN NOTES PT IS IN BED WITH SITTER AND AT BEDSIDE. PT ON RA, RESPIRATIONS ARE EVEN AND UNLABORED. IV ON LEFT WRIST INTACT AND PATENT, RUNNING D5W +40MEQ KCL @ 75 ML/HR. ABARCA IS INTACT, OUTPUT 800 ML. PT IS CLEAN AND DRY, SKIN CARE PROVIDED. SAFETY MEASURES ARE IN PLACE. CALL LIGHT IS IN REACH. WILL ENDORSE TO ACID DUMPER RN FOR CONTINUITY OF CARE.
--- NOTE | 2017-03-24 19:30 | NUR ---
MS RN NOTES RECEIVED ON BED,CALM AND QUIET,SITTER AT BEDSIDE,DINNER FOOD BARELY CONSUMED.PLAN PEG PLACEMENT,AWAITING FAMILY MEMBER TO COME TOMORROW.WITH IVF D5W WITH 40MEQ AT 75ML/HR RATE,SITE PATENT ON THE LEFT WRIST.ABARCA CATH IN PLACE DRAINING YELLOWISH OUTPUT.SITTER AT BEDSIDE FOR SAFETY,ON 30 DAYS HOLD.
[2017-03-24 20:00] VITALS: BP 109/62
[2017-03-24 20:09] VITALS: BP 109/62
[2017-03-24] MEDS: ENOXAPARIN SODIUM 30 MG/0.3 ML DISP.SYRIN SQ SCH (21:11)
--- NOTE | 2017-03-24 21:30 | NUR ---
MS RN NOTES REFUSED LOVENOX,PLUS GOING FOR PEG PLACEMENT TOMORROW
--- NOTE | 2017-03-24 21:40 | NUR ---
MS RN NOTES SPOKE TO ROLLY BOWSER,,GAVE TELEPHONE CONSENT FOR PEG PLACEMENT TOMORROW,WITNESSED BY MIRANDA LAZO.
[2017-03-24] MEDS: MAGNESIUM OXIDE 400 MG TABLET PO SCH (22:00)
--- NOTE | 2017-03-25 02:00 | NUR ---
MS RN NOTES SOUND ASLEEP,SITTER AT BEDSIDE.
--- NOTE | 2017-03-25 06:19 | NUR ---
MS RN NOTES PLACE ON NPO STATUS FOR PEG PLACEMENT THIS AFTERNOON BT DR RICE,TELEPHONE CONSENT OBTAINED,ON CHART.IVF INFUSING,SITE WITH OLD BLOOD NOTED.OFFERED TO PLACE NEW SALINE LOCK BUT REFUSED.IN NO ACUTE DISTRESS.WILL ENDORSE TO DAY NURSE FOR ADA.
[2017-03-25 06:37] LABS: CALCIUM, SERUM 8.4 mg/dL (8.5-10.1); CREATININE 0.6 mg/dL (0.6-1.3); POTASSIUM 4.8 mmol/L (3.5-5.1)
[2017-03-25 07:06] LABS: BASOPHILS % (AUTO) 0.6 % (0.0-2.0); EOSINOPHILS # (AUTO) 0.1 /CMM (0.0-0.7); EOSINOPHILS % (AUTO) 2.1 % (0.0-6.0); HEMATOCRIT 41 % (33-45); HEMOGLOBIN 13.1 g/dL (11.5-14.8); LYMPHOCYTES # (AUTO) 1.6 /CMM (0.8-4.8); LYMPHOCYTES % (AUTO) 39.6 % (20.0-44.0); MEAN CORPUSCULAR HEMOGLOBIN 31 PG (26.0-33.0); MEAN CORPUSCULAR HGB CONC 32 g/dl (31.0-36.0); MEAN CORPUSCULAR VOLUME 96 fL (82-100); MONOCYTES # (AUTO) 0.4 /CMM (0.1-1.30); MONOCYTES % (AUTO) 9.7 % (2.0-12.0); NEUTROPHILS # (AUTO) 1.9 /CMM (1.8-8.9); PLATELET COUNT (AUTO) 98 /CMM (150-450); RDW COEFFICIENT OF VARIATION 18.1 (11.5-15.0); RED BLOOD CELL COUNT(AUTO) 4.26 MIL/uL (4.0-5.2)
--- NOTE | 2017-03-25 07:25 | NUR ---
RN NOTES PT IS IN BED, SLEEPING COMFORTABLY WITH SITTER AT BEDSIDE. PT ON RA, RESPIRATIONS ARE EVEN AND UNLABORED. IV ON LEFT WRIST INTACT AND PATENT, RUNNING D5W +40MEQ KCL AT 75 ML/HR. SAFETY MEASURES ARE IN PLACE, CALL LIGHT IS IN REACH. WILL CONTINUE TO MONITOR.
[2017-03-25] MEDS: PANTOPRAZOLE 40 MG TABLET.DR PO SCH (07:30)
[2017-03-25] MEDS: BOOST PLUS FOOD-CHOCLATE 237 ML BOX PO SCH ×2 (07:32→16:38)
[2017-03-25 08:00] VITALS: BP 117/61
[2017-03-25] MEDS: VENLAFAXINE 37.5 MG TABLET PO SCH (08:02)
[2017-03-25] MEDS: OLANZAPINE 5 MG/TAB.RAPDIS PO SCH ×4 (08:02→21:26)
[2017-03-25] MEDS: BETHANECHOL CHLORIDE (25 MG) 25 MG TABLET PO SCH ×2 (08:02→16:38)
[2017-03-25] MEDS: NITROFURANTOIN/NITROFURAN MAC 100 MG CAPSULE PO SCH ×3 (08:02→21:26)
[2017-03-25] MEDS: Potassium Chloride 40 MEQ in IV D5W 1,000 ML IV PRN ×2 (08:10→23:57)
[2017-03-25 10:06] LABS: BAND % (MANUAL) 1 % (0.0-5.0); EOSINOPHILS % (MANUAL) 1 % (0-4); LYMPHOCYTES % (MANUAL) 42 % (16-48); MONOCYTES % (MANUAL) 11 % (0-11.0); NEUTROPHILS % (MANUAL) 45 (42-76)
[2017-03-25] MEDS: OLANZAPINE 10 MG VIAL IM PRN ×2 (12:15→22:25)
[2017-03-25 13:45] VITALS: BP 122/71
[2017-03-25 16:00] VITALS: BP 110/65
--- NOTE | 2017-03-25 19:26 | NUR ---
RN NOTES PT WAS SENT BACK FROM SURGERY. DR. THORNTON WILL NOT DO THE PEG PLACEMENT SURGERY BECAUSE PT IS A/OX4 AND [facility] DOES NOT COVER SUCH AN INVASIVE PROCEDURE. IS NOT ABLE TO CONSENT FOR PROCEDURE. DR. MENDEZ WAS MADE AWARE. IV ON LEFT WRIST INTACT AND PATENT. PT ON RA, RESPIRATIONS ARE EVEN AND UNLABORED, VITAL SIGNS WNL. WILL ENDORSE TO GROCERY SUPERVISOR RN FOR CONTINUITY OF CARE.
--- NOTE | 2017-03-25 20:00 | NUR ---
MS RN NOTES PT REFUSED TO HAVE VS TAKEN. EXPLAINED TO PT IMPORTANCE OF VS IN HER POC BUT PT STILL REFUSED. WILL CONTINUE TO MONITOR.
[2017-03-25] MEDS: MAGNESIUM OXIDE 400 MG TABLET PO SCH ×2 (21:26→22:00)
[2017-03-25] MEDS: ENOXAPARIN SODIUM 30 MG/0.3 ML DISP.SYRIN SQ SCH ×2 (21:27→21:30)
--- NOTE | 2017-03-26 06:29 | NUR ---
MS RN NOTES AWAKE & RESPONSIVE. NOT IN ANY DISTRESS. NO SOB NOTED. DENIES ANY PAIN OR DISCOMFORT AT THIS TIME. WITH IVF INFUSING WELL. AM CARE DONE. MONITORED ACCORDINGLY. WITH SITTER AT BEDSIDE. CALL LIGHT WITHIN REACH. BED IN LOWEST POSITION. SR UP X 3 WITH BED ALARM ON FOR SAFETY. WILL ENDORSE TO NEXT SHIFT.
--- NOTE | 2017-03-26 07:20 | NUR ---
RN NOTES REPORT RECEIVED AT THE BEDSIDE. PATIENT IS SLEEPING. NO SOB OR DISTRESS NOTED AT THIS TIME. PATIENT DOES NOT APPEAR TO BE IN PAIN, NO FACIAL GRIMACE NOTED. IV FLUIDS INFUSING WELL. BED IN A LOW POSITION, CALL LIGHT WITHIN PATIENT REACH, SITTER IS AT THE BEDSIDE, WILL CONTINUE TO MONITOR.
[2017-03-26] MEDS: PANTOPRAZOLE 40 MG TABLET.DR PO SCH (07:30)
--- NOTE | 2017-03-26 07:46 | NUR ---
RN NOTES PATIENT TRAYS ARE ON THE FLOOR. TALKED TO PATIENT AND WAS ENCOURAGING HER TO EAT. PATIENT STATES "NO I DON'T WANT TO, PLEASE NO." EXPLAINED TO THE PATIENT THAT SHE NEEDS TO START EATING OR SHE WILL CONTINUE TO GET WEEK. PATIENT STATES "I DON'T CARE, I WON'T." EXPLAINED TO THE PATIENT THAT SHE HAS MORNING MEDICATIONS TO TAKE, PATIENT STATES "I DON'T WANT THEM, NO." WILL ADMIN IM ZYPREXA.
[2017-03-26 08:00] VITALS: BP 111/70
[2017-03-26] MEDS: BOOST PLUS FOOD-CHOCLATE 237 ML BOX PO SCH ×2 (08:00→16:33)
[2017-03-26] MEDS: NITROFURANTOIN/NITROFURAN MAC 100 MG CAPSULE PO SCH ×2 (08:54→21:00)
[2017-03-26] MEDS: OLANZAPINE 10 MG VIAL IM PRN ×4 (08:54→21:49)
[2017-03-26] MEDS: VENLAFAXINE 37.5 MG TABLET PO SCH (08:54)
[2017-03-26] MEDS: BETHANECHOL CHLORIDE (25 MG) 25 MG TABLET PO SCH ×2 (08:55→16:33)
[2017-03-26] MEDS: OLANZAPINE 5 MG/TAB.RAPDIS PO SCH ×4 (08:55→21:00)
--- NOTE | 2017-03-26 09:28 | NUR ---
RN NOTES DR MENDEZ ON FLOOR. INFORMED MD THAT OF PATIENT WOULD LIKE TO HAVE THE DOCTOR CALL HIM. MD TOOK DOWN HUSBANDS NUMBER AND STATES HE WILL GET TO TALK TO HIM ONCE HE IS DONE ROUNDING ON PATIENTS.
--- NOTE | 2017-03-26 12:19 | NUR ---
BETO received a call from decorating supervisor Yas Sands requesting for SW to file for public guardian for the pt, per Dr. Nguyễn's recommendation. BETO contacted public guardian's office and spoke to Lashay to inquire if public guardian's office is able to make medical decisions for patients if appointed one. Lashay confirmed with BETO that they are able to make medical decisions. BETO completed Referral for public guardian application form and faxed it to .
--- NOTE | 2017-03-26 13:19 | NUR ---
After discussion with Felicitas MANNING and Dr Nguyễn, an application for public guardianship was faxed to their office. There is no appointed decision-maker for this pt. Pt. needs a feeding tube and was very resistant to this yesterday in [place] and was screaming " no!" per report from Dr Alves. wanted to have pt. sign power of assistant county attorney and make him decision-maker but pt. is not sufficiently alert or organized to sign any documents. For this reason, public guardian is needed to make medical decisions for pt. Felicitas faxed completed application to the public guardian. The average turnaround on these applications is a week to ten days. Felicitas MANNING agreed to follow up on progress of application. This transition social worker spoke with patient's , Williams Prater [phone] [phone] today and advised him re the above plan. He was in agreement. Dr Nguyễn was notified re discussion with . Felicitas also discussed case with Dr Nguyễn.
[2017-03-26] MEDS: Potassium Chloride 40 MEQ in IV D5W 1,000 ML IV PRN (15:45)
[2017-03-26 16:00] VITALS: BP 114/69
--- NOTE | 2017-03-26 18:59 | NUR ---
RN CLOSING NOTES NO SIGNIFICANT CHANGES IN PATIENT CONDITION THROUGHOUT THE SHIFT. PATIENT STILL REFUSING ORAL INTAKE OF FOOD AND MEDS. NO SOB OR DISTRESS NOTED AT THIS TIME. PATIENT DENIES PAIN. BED IN A LOW POSITION, CALL LIGHT WITHIN PATIENT REACH, FAMILY AT THE BEDSIDE. WILL ENDORSE FOR ADA.
--- NOTE | 2017-03-26 20:00 | NUR ---
MS RN NOTES PT REFUSED TO HAVE VS TAKEN. EXPLAINED TO PT IMPORTANCE OF VS IN HER POC BUT PT STILL REFUSED. WILL CONTINUE TO MONITOR.
[2017-03-26] MEDS: ENOXAPARIN SODIUM 30 MG/0.3 ML DISP.SYRIN SQ SCH (21:30)
[2017-03-26] MEDS: MAGNESIUM OXIDE 400 MG TABLET PO SCH (21:48)
[2017-03-27] MEDS: Potassium Chloride 40 MEQ in IV D5W 1,000 ML IV PRN ×2 (04:44→18:11)
[2017-03-27] MEDS: PANTOPRAZOLE 40 MG TABLET.DR PO SCH (07:30)
[2017-03-27] MEDS: BOOST PLUS FOOD-CHOCLATE 237 ML BOX PO SCH ×2 (08:00→17:00)
[2017-03-27] MEDS: OLANZAPINE 5 MG/TAB.RAPDIS PO SCH ×4 (09:00→21:00)
[2017-03-27] MEDS: BETHANECHOL CHLORIDE (25 MG) 25 MG TABLET PO SCH ×2 (09:00→17:00)
[2017-03-27] MEDS: NITROFURANTOIN/NITROFURAN MAC 100 MG CAPSULE PO SCH ×2 (09:00→21:00)
[2017-03-27] MEDS: VENLAFAXINE 37.5 MG TABLET PO SCH (09:00)
[2017-03-27] MEDS: OLANZAPINE 10 MG VIAL IM PRN ×3 (09:51→18:07)
--- NOTE | 2017-03-27 12:29 | NUR ---
MS RN NOTES NOTIFIED MD MENDEZ PATIENT IS ORDERED PO ANTIBIOTICS AND REFUSING ALL PO. PER HE WILL REVIEW. NOTIFIED DR VANESSA LYNCH AND GLENROY WORKING ON COURT HEARING [place]
--- NOTE | 2017-03-27 12:50 | NUR ---
[facility] if pt. is [facility] resident. [facility] informed SW they are not able to accept pt. if found appropriate due to pt. not being an [facility] resident but [facility] resident. Addendum: 03/27/17 at 1255 by GLENROY PÉREZ BETO updated director Yas Sands and Dr. Nguyễn with the aforementioned information.
--- NOTE | 2017-03-27 14:13 | NUR ---
BETO contacted [facility] Public Guardian's office and left a message on their general voicemail informing a call back or faxing the Public Guardian application form to . BETO left a call back number as well.
--- NOTE | 2017-03-27 19:25 | NUR ---
MS RN CLOSING NOTES PATIENT IS RESTING IN BED. IN NO APPARENT DISTRESS. BEDSIDE RAILS ARE UP X2. BED IS LOCKED AND LOWERED. WILL ENDORSE CARE TO DEVELOPMENT EDITOR NURSE FOR ADA.
--- NOTE | 2017-03-27 19:35 | NUR ---
MSRN FULLY AWAKE, NO SOB, CONFUSED, AT BEDSIDE. WANTED TO GET OUT OF BED, NEEDS CONSTANT OBSERVATION. HFR. PRESENT IVF INFUSING WELL AT 75CC/HR. SITTER AT BEDSIDE. NO NEEDS FOR NOW. CONTINUED.
[2017-03-27 20:00] VITALS: BP_SYST 118; BP_SYST 128; BP_DIAS 68; BP_DIAS 75
[2017-03-27] MEDS: MAGNESIUM OXIDE 400 MG TABLET PO SCH (22:00)
[2017-03-27] MEDS: ENOXAPARIN SODIUM 30 MG/0.3 ML DISP.SYRIN SQ SCH (22:14)
--- NOTE | 2017-03-27 22:24 | NUR ---
MSRN STILL FULLY AWAKE, AGREED TO HAVE LOVENOX SQ. REFUSED TO TAKE ANYTHING ORALLY, MEDS PO REFUSED BY PATIENT. BEHAVIOR CALM AT THIS TIME.
--- NOTE | 2017-03-28 06:52 | NUR ---
MSRN SLEP LATE. REMAINS CALM BUT STILL REFUSED ANYTHING BY MOUTH. KEPT COMFORTABLE. PRESENT IVF CONTINUED
[2017-03-28] MEDS: PANTOPRAZOLE 40 MG TABLET.DR PO SCH (07:30)
--- NOTE | 2017-03-28 07:30 | NUR ---
RN MS NOTES PT IN BED, ASLEEP, EASY TO AROUSE, NO SIGN OF PAIN OR DISCOMFORT, NOT IN DISTRESS, SITTER AT BEDSIDE, SAFETY PRECAUTIONS OBSERVED, CALL LIGHT WITHIN REACH.
[2017-03-28] MEDS: BOOST PLUS FOOD-CHOCLATE 237 ML BOX PO SCH ×2 (08:00→17:00)
[2017-03-28] MEDS: NITROFURANTOIN/NITROFURAN MAC 100 MG CAPSULE PO SCH ×2 (09:00→21:00)
[2017-03-28] MEDS: VENLAFAXINE 37.5 MG TABLET PO SCH (09:00)
[2017-03-28] MEDS: OLANZAPINE 5 MG/TAB.RAPDIS PO SCH ×4 (09:00→21:16)
[2017-03-28] MEDS: BETHANECHOL CHLORIDE (25 MG) 25 MG TABLET PO SCH ×2 (09:00→17:00)
[2017-03-28 10:00] VITALS: BP 111/52
--- NOTE | 2017-03-28 11:31 | NUR ---
RN MS NOTES PT IN BED, RESTING, DENIES PAIN, NOT IN DISTRESS, IV FLUIDS INFUSING WELL, PT REFUSED BREAKFAST AND ALL MEDICATIONS THIS MORNING, OFFERED SEVERAL TIMES BUT STILL REFUSED, INITIALLY REFUSED VITAL SIGNS CHECK BUT AGREED AFTER A WHILE, F/C IN PLACE, DRAINING WELL WITH CLEAR JESSICA URINE, SITTER AT BEDSIDE, SAFETY PRECAUTIONS OBSERVED, WILL CONTINUE TO MONITOR.
[2017-03-28] MEDS: OLANZAPINE 10 MG VIAL IM PRN ×2 (12:15→17:25)
--- NOTE | 2017-03-28 14:24 | NUR ---
RN MS NOTES DR. MENDEZ INFORMED OF PT'S CONTINUED REFUSAL TO EAT HER FOOD AND TAKE HER MEDICINES, PER MD, CHANGE IVF TO D5W ONLY, NO MORE POTASSIUM, NOTED AND CARRIED OUT.
[2017-03-28] MEDS: IV D5W 1,000 ML IV PRN (14:53)
[2017-03-28 17:00] VITALS: BP 113/60
--- NOTE | 2017-03-28 18:25 | NUR ---
RN MS NOTES PT IN BED, AWAKE, NO SIGN OF PAIN OR DISCOMFORT, PASSIVE WHEN BEING ASKED QUESTIONS, REFUSED PM MEDS AND DINNER, OFFERED SEVERAL TIMES, STILL REFUSED, IV FLUIDS INFUSING WELL, CALL LIGHT WITHIN REACH, FAMILY AT BEDSIDE, F/C DRAINING WELL WITH CLEAR JESSICA COLORED URINE, SITTER AT BEDSIDE, NEEDS ATTENDED.
--- NOTE | 2017-03-28 19:30 | NUR ---
MS RN NOTES RECEIVED ON BED A/O X1-2, CALM AND QUIET, AT BEDSIDE.PRESENT IVF INFUSING WELL ON RIGHT HAND VIA IV PUMP.ABARCA CATH IN PLACE DRAINING YELLOWISH OUTPUT.SITTER AT BEDSIDE FOR SAFETY.CALL LIGHT IN REACH,NEEDS ANTICIPATED.
[2017-03-28 20:00] VITALS: BP 120/78
--- NOTE | 2017-03-28 20:30 | NUR ---
MS RN NOTES IV SITE INFILTRATED.NEW SALINE LOCK PLACE ON RIGHT WRIST #22,SAME IVF INFUSING.
[2017-03-28] MEDS: ENOXAPARIN SODIUM 30 MG/0.3 ML DISP.SYRIN SQ SCH (21:29)
[2017-03-28] MEDS: MAGNESIUM OXIDE 400 MG TABLET PO SCH (21:30)
--- NOTE | 2017-03-28 21:30 | NUR ---
MS RN NOTES DUE LOVENOX SQ REFUSED,PLUS PLATELETS IS LOW 98.
--- NOTE | 2017-03-29 06:48 | NUR ---
MS RN NOTES NO CHANGE IN BEHAVIOR.STILL REFUSING FOOD AND MEDS.REFUSED PEG PLACEMENT.D/C PLAN TO [facility]LD[facility],ACCEPTED.
[2017-03-29] MEDS: PANTOPRAZOLE 40 MG TABLET.DR PO SCH (07:30)
--- NOTE | 2017-03-29 07:30 | NUR ---
MS/RN Patient received Patient received from brim stretcher. Sitter at bedside as continues on hold which expires 04/07/17. Remains calm at this time. All needs attended, will continue to monnitor and ensure safety.
[2017-03-29] MEDS: NITROFURANTOIN/NITROFURAN MAC 100 MG CAPSULE PO SCH ×2 (07:34→21:00)
[2017-03-29] MEDS: BETHANECHOL CHLORIDE (25 MG) 25 MG TABLET PO SCH ×2 (07:34→17:00)
[2017-03-29] MEDS: BOOST PLUS FOOD-CHOCLATE 237 ML BOX PO SCH ×2 (07:35→17:00)
[2017-03-29] MEDS: OLANZAPINE 5 MG/TAB.RAPDIS PO SCH ×4 (07:35→22:15)
[2017-03-29] MEDS: VENLAFAXINE 37.5 MG TABLET PO SCH (07:35)
[2017-03-29 08:00] VITALS: BP 118/70
--- NOTE | 2017-03-29 09:00 | NUR ---
MS/RN Medications Refused to take any oral medications, zyprexia given IM.
--- NOTE | 2017-03-29 11:29 | NUR ---
MS/RN Refusing care Refused to be turned and repositioned or for any type of bed bath. Will continue to try to encourage oral intake.
[2017-03-29] MEDS: OLANZAPINE 10 MG VIAL IM PRN ×2 (11:52→17:55)
[2017-03-29 16:00] VITALS: BP 116/69
[2017-03-29] MEDS: IV D5W 1,000 ML IV PRN (16:16)
--- NOTE | 2017-03-29 18:20 | NUR ---
MS/RN End note Patient continues to refuse all care and medications despite multiple attempts and education as to the importance of eating and drinking even a very small amount. Zyprexa 5mg IM last administered at 1755. Family updated as to paln of care and patient's refusal to eat or drink. Will continue to monitor and endorse to police shift commander.
--- NOTE | 2017-03-29 19:55 | NUR ---
RN INITIAL NOTES: RECEIVED REPORT PT IN BED, AWAKE, ON RA, RESPIRATION EVEN AND UNLABORED, NO FACIAL GRIMACE NOTED, PT CALM AT THIS TIME, APPEARS WITHDRAWN, DEPRESSED, PER REPORT PT REFUSING CARE, REFUSING MOST MEDICATION, REFUSING TO EAT, PT ON 5250 HOLD WHICH WILL ON 04/07/17 REISED FILED AND IS AWAITING FOR COURT HEARING. SITTER AT BED SIDE. PT HAS RIGHT WRIST IV ACCESS PATENT AND FLUSHING WELL, INFUSING WITH D5W AT 75ML/HR. SAFETY PRECAUTIONS FOR FALL INITIATED CALL LIGHT IN REACH,. WILL CONTINUE TO MONITOR.
[2017-03-29 20:00] VITALS: BP 127/78
[2017-03-29] MEDS: ENOXAPARIN SODIUM 30 MG/0.3 ML DISP.SYRIN SQ SCH (21:30)
[2017-03-29] MEDS: MAGNESIUM OXIDE 400 MG TABLET PO SCH (22:00)
--- NOTE | 2017-03-29 22:17 | NUR ---
LATE ADMINISTRATION OF ZYPREXA: AFTER AN HOUR OF ENCOURAGING PT TO TAKE THE PILL/ZYPREXA, PT FINALLY AGREE TO TAKE THE MEDICINE, MARGARITA ARROYO AT BED SIDE WITNESS, PT TAKE THE PILL (SWALLOW PILL WHOLE) WITH SIPS OF WATER, HOWEVER SHE REFUSED TO TAKE THE OTHER PILL FOR TONIGHT, SUCH MACROBID, LOVENOX AND MAG OXIDE, EDUCATION PROVIDED TO THE PT, BUT PT VERY NON COMPLIANT
--- NOTE | 2017-03-30 | NUR ---
RN NOTES: PT STILL AWAKE, INFORMED ABOUT THE NEED TO TAKE PICTURES OF SKIN ISSUES, BUT PT REFUSED, STATED SHE DOESN'T WANT IT,AND THAT ITS NOT NECESSARY, EDUCATION PROVIDED TO THE PT,
--- NOTE | 2017-03-30 07:11 | NUR ---
RN CLOSING NOTES: PT IN BED, AWAKE, NO CHANGES IN BEHAVIOR NOTED, STILL REFUSING FOR MEDICATION, REFUSING TO EAT, REFUSING FOR AM CARE, HOWEVER NOT COMBATIVE AND REMAINS CALM. SITTER AT BED SIDE. IV ACCESS REMAINS PATENT AND FLUSHING WELL, INFUSING WITH D5W AT 75ML/HR. VS REMAINS STABLE, NEEDS ATTENDED, SAFETY PRECAUTIONS FOR FALL REMAINS ENGAGED, CALL LIGHT IN REACH, WILL ENDORSE TO DAY RN FOR ADA.
--- NOTE | 2017-03-30 07:40 | NUR ---
RN OPENING NOTES RECEIVED PATIENT AWAKE IN BED RESTING COMFORTABLY. PATIENT IS A/OX2. PATIENT APPEARS TO BE IN NOT ACUTE DISTRESS. RESPIRATIONS EVEN AND UNLABORED. PATIENT IS REPORTED TO BE NON COMPLIANT. REFUSING TO EAT AND TAKE MEDICATION. PATIENT REFUSED LABS. MD AWARE. PATIENT ON 5249. REISE FILED. AWAITING RESPONSE FROM COURT. RIGHT WRIST 22G PATENT AND INTACT. D5W @ 75ML/HR. BED LOCKED IN THE LOWEST POSITION WITH SIDE RAILS UP X2. SITTER A THE BED SIDE. WILL CONTINUE TO MONITOR, ASSESS AND EDUCATE PATIENT.
[2017-03-30] MEDS: BOOST PLUS FOOD-CHOCLATE 237 ML BOX PO SCH ×2 (08:00→17:00)
[2017-03-30] MEDS: VENLAFAXINE 37.5 MG TABLET PO SCH (09:00)
[2017-03-30] MEDS: BETHANECHOL CHLORIDE (25 MG) 25 MG TABLET PO SCH ×2 (09:00→17:00)
[2017-03-30] MEDS: NITROFURANTOIN/NITROFURAN MAC 100 MG CAPSULE PO SCH ×2 (09:00→21:00)
[2017-03-30] MEDS: OLANZAPINE 5 MG/TAB.RAPDIS PO SCH ×4 (09:00→21:00)
[2017-03-30] MEDS: PANTOPRAZOLE 40 MG TABLET.DR PO SCH (09:29)
--- NOTE | 2017-03-30 09:30 | NUR ---
RN NON ADMIN NOTES PATIENT REFUSED ALL MORNING MEDS. MD AWARE. PATIENT HAS BEEN CONSISTENTLY REFUSING MEDICATIONS, FOOD AND LABS.
--- NOTE | 2017-03-30 10:45 | NUR ---
BETO contacted [facility] Public Guardian's office and spoke to Cristobal who informed BETO that they can only accept referrals to their office if pt. comes from [facility] or [facility] . BETO contacted [facility] and spoke to nakul in intake who informed they have no beds available as of now but to send clinicals to intake department. BETO faxed clinicals to . BETO also contacted intake department at [facility] and spoke to Tanya who requested for BETO to send clinicals to Assessment and referral at . BETO faxed clinicals and updated Dr. Nguyễn with the aforementioned information.
--- NOTE | 2017-03-30 13:43 | NUR ---
RN NON ADMIN NOTES PATIENT REFUSED 1300 MEDICATION.
[2017-03-30] MEDS: IV D5W 1,000 ML IV PRN (14:56)
--- NOTE | 2017-03-30 15:59 | NUR ---
BETO received a call back from [facility] and was informed by Cortney in intake that they do not have any beds available. BETO updated Dr. Nguyễn regarding no beds. Dr. Nguyễn requested for BETO to call pt's Williams and update him the information and give him contact information to [facility] and [facility]. BETO contacted pt's Williams and informed him that [place] Public guardian's office will only accept referral if the referral is from [facility] or [facility]. BETO gave Williams the contact information for both hospitals [facility] and [facility] . BETO also informed him that pt. will most likely be discharged tomorrow to [facility] located at [address], [place] [address]. . artist's manager Allen was updated with the aforementioned information.
--- NOTE | 2017-03-30 17:00 | NUR ---
RN NON ADMIN NOTES PATIENT REFUSED 1700 MEDICATIONS. AWARE. PATIENT REFUSED BLOOD DRAW X2. PHARMACIST AND MD AWARE.
--- NOTE | 2017-03-30 18:12 | NUR ---
RN NOTES DR. MENDEZ UPDATED ON PATIENT STATUS AND PLAN. PT IS ANTICIPATED TO BE TRANSFERRED TO [facility] FOR REISE TO BE APPROVED. DOCUMENTATIONS SENT TO INTACT COORDINATOR JAGDISH.
--- NOTE | 2017-03-30 18:32 | NUR ---
RN NOTES PT IV ACCES INFILTRATED. NEW IV PLACED ON THE LEFT HAND. 22G PATENT AND INTACT. BLOOD DRAWN. ONE ATTEMPT. PT TOLERATED. D5W RUNNING AT 75 ML/HR. WILL CONTINUE TO MONITOR.
--- NOTE | 2017-03-30 19:35 | NUR ---
RN CLOSING NOTES PATIENT RESTING COMFORTABLY IN BED. PATIENT IS AOX3. PT WAS NON COMPLIANT DURING SHIFT. REFUSED TO EAT AND TAKE MEDICATIONS. SITTER AT THE BEDSIDE. AT THE BEDSIDE. PLAN DISCUSSED WITH . F/C IN PLACED DRAINING DARK TEA COLOR URINE. ALL NEEDS MET. BED LOCKED IN THE LOWEST POSITION WITH SIDE RAILS UP X2. WILL ENDORSE TO NIGHT RN FOR ADA.
--- NOTE | 2017-03-30 19:45 | NUR ---
MS RN NOTE RECEIVED PATIENT FROM DAY SHIFT, PATIENT IS ALERT AND ORIENTEDX2, LOOKS WEAK, 1:1 SITTER DUE TO 5250 HOLD, AT BED SIDE. IV ON LEFT HAND IS PATENT AND INTACT, D5W IS RUNNING. ABARCA PRESENT WITH TEA COLOR URINE. SRX2, BED IN LOW POSITION, CALL LIGHT WITHIN REACH, WILL CONTINUE TO MONITOR PATIENT.
[2017-03-30 19:53] LABS: BASOPHILS % (AUTO) 0.9 % (0.0-2.0); EOSINOPHILS # (AUTO) 0.1 /CMM (0.0-0.7); HEMATOCRIT 45 % (33-45); HEMOGLOBIN 14.7 g/dL (11.5-14.8); LYMPHOCYTES # (AUTO) 2.2 /CMM (0.8-4.8); LYMPHOCYTES % (AUTO) 41.6 % (20.0-44.0); MEAN CORPUSCULAR HEMOGLOBIN 31 PG (26.0-33.0); MEAN CORPUSCULAR HGB CONC 33 g/dl (31.0-36.0); MEAN CORPUSCULAR VOLUME 95 fL (82-100); MONOCYTES # (AUTO) 0.3 /CMM (0.1-1.30); MONOCYTES % (AUTO) 6.6 % (2.0-12.0); NEUTROPHILS # (AUTO) 2.6 /CMM (1.8-8.9); NEUTROPHILS % (AUTO) 49.9 % (43.0-81.0); PLATELET COUNT (AUTO) 143 /CMM (150-450); RDW COEFFICIENT OF VARIATION 18.2 (11.5-15.0); RED BLOOD CELL COUNT(AUTO) 4.71 MIL/uL (4.0-5.2); WHITE BLOOD COUNT (AUTO) 5.3 K/uL (4.3-11.0)
[2017-03-30 20:09] VITALS: BP 120/74
[2017-03-30] MEDS: ENOXAPARIN SODIUM 30 MG/0.3 ML DISP.SYRIN SQ SCH (21:30)
[2017-03-30] MEDS: MAGNESIUM OXIDE 400 MG TABLET PO SCH (22:00)
--- NOTE | 2017-03-30 22:05 | NUR ---
MS RN NOTE PATIENT IS VERY NON-COMPLIANT, OFFERED TO TAKE NIGHT MEDS SEVERAL TIMES, EACH TIME PT STATED 'I DON'T WANT IT, I DON'T WANT TO TAKE IT.' PT DOES NOT WANT TO GET SHOTS EITHER. PATIENT'S BEHAVIOR IS CALM AND NOT AGGRESSIVE.
[2017-03-31] MEDS: IV D5W 1,000 ML IV PRN (04:22)
--- NOTE | 2017-03-31 07:10 | NUR ---
MS RN Initial Notes: Received patient resting in bed. Patient alert oriented x2. Non-labored breathing on room air. No facial grimaces noted at the moment. IV on left hand patent and intact. Tea colored urine draining in damon catheter. Bed in lowest locked position. Call light within reach. Sitter at bedside. Will continue to monitor.
--- NOTE | 2017-03-31 07:19 | NUR ---
MS RN NOTE PATIENT IS SLEEPING IN BED COMFORTABLY, NO S/S OF RESPIRATORY DISTRESS OR PAIN AT THIS TIME. IV FLUID IS RUNNING ON LEFT HAND. WILL ENDORSE TO DAY SHIFT NURSE FOR ADA.
[2017-03-31] MEDS: PANTOPRAZOLE 40 MG TABLET.DR PO SCH (07:30)
[2017-03-31 08:00] VITALS: BP 118/68
[2017-03-31] MEDS: BETHANECHOL CHLORIDE (25 MG) 25 MG TABLET PO SCH ×2 (09:00→17:00)
[2017-03-31] MEDS: NITROFURANTOIN/NITROFURAN MAC 100 MG CAPSULE PO SCH ×2 (09:00→21:00)
[2017-03-31] MEDS: VENLAFAXINE 37.5 MG TABLET PO SCH (09:00)
[2017-03-31] MEDS: BOOST PLUS FOOD-CHOCLATE 237 ML BOX PO SCH ×2 (09:18→17:02)
[2017-03-31] MEDS: OLANZAPINE 5 MG/TAB.RAPDIS PO SCH ×4 (09:24→21:00)
--- NOTE | 2017-03-31 12:07 | NUR ---
BETO received a call from pt's Williams who informed BETO to send referral to July at the [facility]. ; Williams stated he preferred if the pt. went there instead of [facility]. BETO informed Williams she will inform the case management director regarding his preference. BETO gave case management directorpharmacy informatics manager and fax to send to July at [facility].
[2017-03-31 16:00] VITALS: BP 121/80
--- NOTE | 2017-03-31 18:55 | NUR ---
MS RN Closing Notes: patient resting in bed. Patient alert oriented x2. Non-labored breathing on room air. No facial grimaces noted at the moment. IV on left hand patent and intact. Tea colored urine draining in damon catheter. Bed in lowest locked position. Call light within reach. Sitter at bedside. Will endorse to next shift. During shift, Patient kept clean and dry. Patient refused to eat as well as take medications. Benefits and risks explained. Offered multiple times. However, patient still refused. Patient did take her PO zyprexa throughout the day.
[2017-03-31 20:00] VITALS: BP 121/69
--- NOTE | 2017-03-31 20:15 | NUR ---
MS RN NOTE RECEIVED PATIENT FROM DAY SHIFT, PATIENT HAS DC ORDER PER MD, WAITING FOR THE AMBULANCE. GAVE A REPORT TO AMAN SHELDON.
--- NOTE | 2017-03-31 20:54 | NUR ---
MS RN Notes: Patient cleared to discharge by MDs to [facility] per MD orders. , Boyd, aware of discharge., Patient initially refused to sign paper work but verbalize desire to leave. Then, she agreed to sign paperwork. IV taken out. Valuables accounted for. Patient stable. Vitals within range. Patient refused having wound pictures taken of skin. Patient refused having flu shot given.
[2017-03-31] MEDS: ENOXAPARIN SODIUM 30 MG/0.3 ML DISP.SYRIN SQ SCH (21:30)
[2017-03-31] MEDS: OLANZAPINE 10 MG VIAL IM PRN (21:40)
[2017-03-31] MEDS: MAGNESIUM OXIDE 400 MG TABLET PO SCH (22:00)
--- NOTE | 2017-03-31 22:00 | NUR ---
MS RN NOTE AMBULANCE SERVICE ON WILL CALL AT THIS TIME. THEY WILL SEND ANOTHER CREW ETA 1HOUR. PT KEEPS CHANGING HER MIND, STATED SHE WANTS TO GO, BUT A MINUTE LATER SHE DOES NOT WANT TO GO. PT SIGNED THE DISCHARGE PAPER ALREADY WITH DAY SHIFT NURSE MK, HER ROLAND HAS BEEN WAITING FOR HER TO DISCHARGE, WANTS TO GET THE UPDATE LATER.
--- NOTE | 2017-03-31 23:30 | NUR ---
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 PER AMBULANCE CREW, SHE IS NOT SAFE TO TRANSFER TO [place] WHICH WILL TAKE ABOUT AN HOUR. HER ROLAND WAS NOTIFIED ABOUT THE SITUATION, HE SAID HE WILL BE HERE IN THE MORNING.
--- NOTE | 2017-04-01 00:20 | NUR ---
MS RN NOTE ONCHENRI BRAUN WAS NOTIFIED ABOUT PATIENT'S DISCHARGE SITUATION. CALLED ONCHENRI PSYCH MD LYNCH WELL, HE MADE AWARE OF IT WELL.
--- NOTE | 2017-04-01 06:53 | NUR ---
MS RN NOTE PATIENT IS SLEEPING IN BED COMFORTABLY, NO S/S OF RESPIRATORY DISTRESS OR PAIN. WILL ENDORSE TO DAY SHIFT NURSE FOR ADA.
[2017-04-01] MEDS: PANTOPRAZOLE 40 MG TABLET.DR PO SCH (07:30)
--- NOTE | 2017-04-01 07:34 | NUR ---
MS RN Initial Notes: patient resting in bed. Patient alert oriented x2. Non-labored breathing on room air. No facial grimaces noted at the moment. IV on left hand patent and intact. Tea colored urine draining in damon catheter. Bed in lowest locked position. Call light within reach. Sitter at bedside. Will continue to monitor
[2017-04-01 08:00] VITALS: BP 122/82
[2017-04-01] MEDS: BOOST PLUS FOOD-CHOCLATE 237 ML BOX PO SCH (08:00)
[2017-04-01] MEDS: NITROFURANTOIN/NITROFURAN MAC 100 MG CAPSULE PO SCH (08:53)
[2017-04-01] MEDS: VENLAFAXINE 37.5 MG TABLET PO SCH (08:53)
[2017-04-01] MEDS: OLANZAPINE 5 MG/TAB.RAPDIS PO SCH ×2 (08:54→13:29)
[2017-04-01] MEDS: BETHANECHOL CHLORIDE (25 MG) 25 MG TABLET PO SCH (08:54)
--- NOTE | 2017-04-01 08:54 | NUR ---
RN NOTES: Patient refusing medication and food. Benefits and risks explained to patient. Patient still refusing. Patient resting in bed. Non-labored breathing noted. No signs of distress. Patient refusing to have IV fluids as well as refusing to have IV access started. Patient's facial grimaces indicate calmness. No signs of anxiety noted.
--- NOTE | 2017-04-01 09:05 | NUR ---
RN Notes: Attempted to give patient PRN Zyprexa. Patient refusing. Benefits and risks explained. Patient still refusing. Hold discontinued by Dr. Nguyễn yesterday. Patient appears calm. No signs of anxiety
--- NOTE | 2017-04-01 13:34 | NUR ---
RN Notes: Spoke to Dr. Nguyễn earlier regarding hold order. Hold order still intact. It is discontinued once patient leaves the hospital. Patient refused zyprexa initially. benefits and risks explained. Patient took the po. No signs of pocketing.
--- NOTE | 2017-04-01 15:50 | NUR ---
RN Notes Closing: Patient discharged to [facility] per MD orders. Patient cleared by Dr. Nguyễn as well. Patient stable. Vital signs within normal range. Nonlabored breathing on room air noted. Report given to CLIFTON Matson at [facility]. states that patient has gotten the Penumococcal vaccine before. Patient refused the flu shot. No IV peripheral line on patient. Belongings given to patient and . Patient left accompanied by and paramedics.
== END 2017-04-01 15:50 | DRG 640 ==
LOC: MED 11:31 → MEDSG2 03-18 11:55
PROVIDERS: ATTEND Nurse Practitioner Acute Care
DX: R62.7 Adult failure to thrive (principal); N17.0 Acute kidney failure with tubular necrosis; E43 Unspecified severe protein-calorie malnutrition; E87.0 Hyperosmolality and hypernatremia; F32.3 Major depressive disorder, single episode, severe with psychotic features; R13.10 Dysphagia, unspecified; E66.01 Morbid (severe) obesity due to excess calories; E86.0 Dehydration; N39.0 Urinary tract infection, site not specified; E87.6 Hypokalemia; B96.20 Unspecified Escherichia coli [E. coli] as the cause of diseases classified elsewhere; F41.9 Anxiety disorder, unspecified; I10 Essential (primary) hypertension; K21.9 Gastro-esophageal reflux disease without esophagitis; Z87.891 Personal history of nicotine dependence; E78.5 Hyperlipidemia, unspecified; Z73.6 Limitation of activities due to disability; R33.9 Retention of urine, unspecified; Z68.21 Body mass index [BMI] 21.0-21.9, adult; F29 Unspecified psychosis not due to a substance or known physiological condition; B95.2 Enterococcus as the cause of diseases classified elsewhere; E83.41 Hypermagnesemia
CPT/HCPCS: 36415; 80048-TC; 80061-TC; 81000-TC; 82088; 82533; 82570-TC; 83735-TC; 83935-TC; 84100-TC; 84155-TC; 84244; 84300-TC; 85025-TC; 87086-TC; 87186-TC; A4216; J1650; J1956; J2405; J3475; J3480; J3490; J7060; J7070; Z7610